=== PATIENT | male | born 1950 | race Caucasian/White ===

== ENCOUNTER → 2017-11-27 10:56 | Outpatient (CLI) | payer MEDICARE, SELFPAY ==
[2017-11-27 11:02] LABS: Microscopic, Urine URINE MICROSCOPIC (MICROSCOPIC)
[2017-11-27 11:23] LABS: Basophils % 0.3 % (0.1-2.0); Eosinophils # 0.4 K/mm3 (0.0-0.4); Eosinophils % 3.9 % (0.1-12.0); Lymphocytes # 2.6 K/mm3 (0.7-4.5); Lymphocytes % 27.6 K/mm3 (10-50); Mean Corpuscular HGB Conc 33.3 g/dL (31.8-35.4); Mean Corpuscular Hemoglobin 32.1 pg (27.0-31.2); Mean Corpuscular Volume 96.2 fl (80-94); Mean Platelet Volume 7.4 fl (7.4-10.4); Monocytes # 0.6 K/mm3 (0.1-1.0); Monocytes % 6.4 % (1.7-9.3); Neutrophils # 5.8 K/mm3 (1.8-7.8); Neutrophils % 61.8 % (37.0-80.0); Platelet Count 229 K/mm3 (142-424); Red Blood Count 4.37 M/mm3 (4.60-6.20); Red Cell Distribution Width 13.1 % (11.5-17.5); White Blood Count 9.5 K/mm3 (4.8-10.8)
[2017-11-27 12:11] LABS: Appearance,Urine CLEAR (Clear); Bilirubin,Urine Negative (Negative); Blood, Urine Negative (Negative); Color,Urine YELLOW (Yellow); Glucose,Urine (UA) Negative (Negative); Ketones,Urine Negative (Negative); Leukocyte Esterase,Urine Negative (Negative); Nitrate,Urine Negative (Negative); Protein,Urine Negative (Negative); Urobilinogen,Urine 0.2 EU/dl (0.2)
[2017-11-27 12:24] LABS: Bacteria,Urine 1+ /lpf; Mucus,Urine 1+ /lpf; Squamous Epithelial Cell,Urine Occasional #/hpf (0-5); WBC,Urine Occasional #/hpf (0-3)
== END ==
PROVIDERS: PCP Family Medicine; Visit Provider Surgery
DX: C19 Malignant neoplasm of rectosigmoid junction (principal)
CPT/HCPCS: 36415; 81001; 85025; 93005

== ENCOUNTER 2017-11-28 09:38 | Day surgery (SDC) | payer MEDICARE, SELFPAY ==
[2017-11-27 09:50] VITALS: BMI 29.9
[2017-11-28] VITALS (8 sets, daily range): BP systolic 95–124; BP diastolic 61–82; PULSE 64–99; RESP 16–18; TEMP 36.1–36.7; O2SAT 90–94
--- NOTE | 2017-11-28 10:32 | P.PN_ITS ---
[facility] Anesthesia Checklist - Patient Identification Patient Identification: Arm Band - Structural Data Admitted From: Home Planned Operative Procedure/s: port-a-cath placement Consent for Planned Operative Procedure(s) Verified: Yes Verified Documents: Surgical Consent, History and Physical - NPO Status Verified Time NPO: 00:00 - Additional verifications Anesthesia Reactions: No - Airway Assessment C-Spine Mobility Assessed: Yes (mp2) TMJ Mobility Assessed: Yes Dentition: Edentulous - Neurological Assessment Level of Consciousness: Awake, Alert - Anesthesia Plan Anesthesia Risk discussed: Yes Anesthesia Plan: Verified ASA Class: III Anesthesia Type: General [facility] Anesthesia HX I have reviewed the patient's past medical history: Yes Medical History: Reports:: Cancer, Chronic Obstructive Pulmonary Disease (COPD) , Hyperlipidemia, Hypertension Denies:: Anxiety, Depression, Diabetes Mellitus Type 1, Diabetes Mellitus Type 2, Internal Pacemaker, MRSA Other Medical History: Reports: Chemotherapy Comment: colon ca Laterality Cases: Left: Carpal Tunnel Release, Bilateral: Tonsillectomy Other Surgeries: Yes: Cancer Surgery, Colonoscopy, Colon Resection, Hernia Repair, Other. No: Pacemaker Amputation: No Fractures: No *Family Hx:: Heart Attack, Cancer, Diabetes
--- NOTE | 2017-11-28 12:10 | HMH.OPNOTE ---
Date of procedure: 11/28/17 Pre-op Diagnosis:: Colorectal cancer Post-op diagnosis:: same Procedure performed:: Port-A-Cath placement (left subclavian vein access) Surgeon:: Portillo Herrera MD RELIGION DEPARTMENT CHAIR:: Other Anesthesia: LMA Estimated blood loss (mL): 10 Operative findings:: Port flush with 7 mL of heparinized saline without difficulty Catheter tip confirmed fluoroscopically Operative note:: After informed consent was obtained, the patient was taken to the operating room and placed in the supine position. General anesthesia with laryngeal mask airway was achieved. His chest and neck were prepped and draped in a sterile fashion. After infiltration with local anesthetic a large bore needle was utilized to access the left subclavian vein. The guidewire placed in position and confirmed fluoroscopically. A transverse incision was made to include the exit site of the guidewire. The deep subcutaneous tissue was dissected to create a pocket for the port hub. The dilator with external sheath was then placed over the guidewire. The dilator and guidewire were removed and the catheter was placed through the sheath and confirmed fluoroscopically. The catheter was cut to appropriate length and secured to the hub. The hub was secured to the underlying fascia with Prolene suture. The hub was easily flushed saline. The subcutaneous tissue was reapproximated with interrupted Vicryl and skin was closed with 4-0 Monocryl in a running subcuticular manner. The port was then flushed with 7 mL of heparinized saline without difficulty. The patient was transferred to recovery in stable condition after bursal of anesthetics. Chest x-ray pending. Pathology: none sent Condition: stable Disposition: PACU Complications:: No immediate
--- NOTE | 2017-11-28 12:21 | P.PN_ITS ---
[facility] Anesthesia Record Part I Intake, IV Amount: 1,000 Estimated blood loss (mL): 10 Urine output (mL): 0 Blood Products used (#): none Blood Pressure: 111/65 SaO2: 90 Pulse Rate: 99 Respiratory Rate: 18 Temperature: 97.2 F Patient is:: Drowsy, Nasal O2 Stable to PACU at:: 12:21
--- NOTE | 2017-11-28 12:21 | HMH.ANESII ---
[facility] Anesthesia Record Part II Discharge Time: 12:51 Destination: Surgical Day Care (OP Surgery) PACU nurse assessment reviewed?: Yes Patient Condition:: Good Anesthesia Complications:: None
--- NOTE | 2017-11-28 12:25 | XR_ITS ---
XR chest portable HISTORY: ITS.REASON: port a cath placement ORDERING PHYSICIAN: Portillo Herrera MD PATIENT AGE: 67 years COMPARISON: 04/28/2013 FINDINGS: Port-A-Cath has been placed by the left subclavian approach with the tip in the cavoatrial region. There is moderate patient rotation. There is atelectasis or infiltrate in both lower lobes. No evidence of pneumothorax. IMPRESSION: Left subclavian Port-A-Cath tip in the region of the cavoatrial region with bilateral lower lobe airspace disease and no evidence of pneumothorax
--- NOTE | 2017-11-28 13:22 | FL_ITS ---
FL guided central line placemt CLINICAL INDICATION: Port-A-Cath placement ITS.REASON: PORT A CATH ORDERING PHYSICIAN: Portillo Herrera MD PATIENT AGE: 67 years Fluoroscopy time: 39 seconds COMPARISON: None FINDINGS: Multiple C-arm images submitted showing interval placement of a left subclavian Mediport catheter with the tip in region of the distal aspect of the superior vena cava. IMPRESSION: Left subclavian central venous line inserted with the tip in region of the aortocaval junction
== END 2017-11-28 13:21 | disposition home or self-care (01) ==
PROVIDERS: Family Provider Family Medicine; PCP Family Medicine; Visit Provider Surgery
DX: C18.9 Malignant neoplasm of colon, unspecified (principal)
CPT/HCPCS: 36571; 71045; 76000; 77001; 93005; 96374; C1788; J1642

== ENCOUNTER 2017-12-10 11:10 | Outpatient (CLI) | payer MEDICARE, SELFPAY ==
[2017-12-10] VITALS (15 sets, daily range): BP systolic 91–134; BP diastolic 50–84; PULSE 51–73; RESP 16–18; TEMP 36.5; BMI 29.1
[2017-12-10 12:04] LABS: Basophils % 0.3 % (0.1-2.0); Eosinophils # 0.3 K/mm3 (0.0-0.4); Eosinophils % 3.2 % (0.1-12.0); Hemoglobin 13.4 g/dL (14.1-18.0); Lymphocytes # 2.8 K/mm3 (0.7-4.5); Lymphocytes % 28.4 K/mm3 (10-50); Mean Corpuscular HGB Conc 33.5 g/dL (31.8-35.4); Mean Corpuscular Hemoglobin 31.9 pg (27.0-31.2); Mean Corpuscular Volume 95.1 fl (80-94); Mean Platelet Volume 7.6 fl (7.4-10.4); Monocytes # 0.6 K/mm3 (0.1-1.0); Monocytes % 5.8 % (1.7-9.3); Neutrophils % 62.2 % (37.0-80.0); Platelet Count 225 K/mm3 (142-424); Red Cell Distribution Width 12.9 % (11.5-17.5); White Blood Count 9.7 K/mm3 (4.8-10.8)
[2017-12-10 12:26] LABS: Alanine Aminotransferase 24 U/L (12-78); Albumin Level 3.6 gm/dL (3.4-5.0); Alkaline Phosphatase 66 U/L (46-116); Anion Gap 11.3 mEq/L (5-15); Aspartate Amino Transferase 14 U/L (15-37); Bilirubin,Total 0.4 mg/dL (0.2-1.0); Blood Urea Nitrogen 21 mg/dL (7-18); Calcium 8.9 mg/dL (8.5-10.1); Carbon Dioxide 27 mmol/L (21.0-32.0); Chloride 106 mmol/L (98-107); Creatinine Clearance Estimated 78 mL/min (0-300); Creatinine,Serum 1.15 mg/dL (0.70-1.30); Estimated Glomerular Filt Rate 63 ml/min (>60); GFR (African American) 77 ML/MIN (>60); Globulin 3.6 gm/dl (1.3-3.2); Glucose 95 mg/dL (74-106); Potassium 4.3 mmoL/L (3.5-5.1); Sodium 140 mmol/L (136-145); Total Protein,Serum 7.2 gm/dL (6.4-8.2)
--- NOTE | 2017-12-10 17:53 | PC.NURSE ---
TOTAL VOLUME INCLUDES OXALIPLATIN, PRE AND POST FLUIDS, AND NS
== END 2017-12-10 16:30 | disposition home or self-care (01) ==
LOC: INF 15:38
PROVIDERS: Family Provider Family Medicine; PCP Family Medicine; Visit Provider Internal Medicine
DX: C18.9 Malignant neoplasm of colon, unspecified (principal)
CPT/HCPCS: 80053; 85025; 96413; 96415; J9263; Q0166

== ENCOUNTER 2017-12-31 08:00 | Outpatient (CLI) | payer MEDICARE, SELFPAY ==
[2017-12-31] VITALS (9 sets, daily range): BP systolic 118–133; BP diastolic 70–84; PULSE 66–70; RESP 18–22; TEMP 36.6–37.1; O2SAT 96–98; BMI 29.3
[2017-12-31 08:58] LABS: Basophils % 0.2 % (0.1-2.0); Eosinophils # 0.2 K/mm3 (0.0-0.4); Eosinophils % 2.6 % (0.1-12.0); Hematocrit 39.5 % (42.0-52.0); Hemoglobin 13.1 g/dL (14.1-18.0); Lymphocytes # 2.4 K/mm3 (0.7-4.5); Mean Corpuscular HGB Conc 33.2 g/dL (31.8-35.4); Mean Corpuscular Hemoglobin 32.2 pg (27.0-31.2); Mean Corpuscular Volume 97.1 fl (80-94); Mean Platelet Volume 7.3 fl (7.4-10.4); Monocytes # 0.6 K/mm3 (0.1-1.0); Monocytes % 7.4 % (1.7-9.3); Neutrophils # 5.3 K/mm3 (1.8-7.8); Neutrophils % 61.7 % (37.0-80.0); Platelet Count 240 K/mm3 (142-424); Red Blood Count 4.07 M/mm3 (4.60-6.20); Red Cell Distribution Width 14.7 % (11.5-17.5); White Blood Count 8.6 K/mm3 (4.8-10.8)
[2017-12-31 09:10] LABS: Alanine Aminotransferase 22 U/L (12-78); Albumin Level 3.8 gm/dL (3.4-5.0); Albumin/Globulin Ratio 1.2 (1.1-1.8); Alkaline Phosphatase 79 U/L (46-116); Anion Gap 10.9 mEq/L (5-15); Aspartate Amino Transferase 15 U/L (15-37); Bilirubin,Total 0.2 mg/dL (0.2-1.0); Blood Urea Nitrogen 21 mg/dL (7-18); Calcium 8.6 mg/dL (8.5-10.1); Carbon Dioxide 26 mmol/L (21.0-32.0); Chloride 105 mmol/L (98-107); Creatinine Clearance Estimated 76 mL/min (0-300); Creatinine,Serum 1.18 mg/dL (0.70-1.30); Estimated Glomerular Filt Rate 61 ml/min (>60); GFR (African American) 74 ML/MIN (>60); Globulin 3.3 gm/dl (1.3-3.2); Glucose 102 mg/dL (74-106); Potassium 3.9 mmoL/L (3.5-5.1); Sodium 138 mmol/L (136-145); Total Protein,Serum 7.1 gm/dL (6.4-8.2)
== END 2017-12-31 13:50 | disposition home or self-care (01) ==
LOC: INF 09:08
PROVIDERS: Family Provider Family Medicine; PCP Family Medicine; Visit Provider Internal Medicine
DX: Z51.11 Encounter for antineoplastic chemotherapy (principal); C18.9 Malignant neoplasm of colon, unspecified
CPT/HCPCS: 80053; 85025; 96360; 96413; 96415; J9263; Q0166

== ENCOUNTER 2018-01-14 08:23 | Outpatient (CLI) | payer MEDICARE, SELFPAY ==
[2018-01-14] VITALS (15 sets, daily range): BP systolic 109–130; BP diastolic 54–83; PULSE 54–73; RESP 16–18; TEMP 36.6; O2SAT 92; BMI 29.3
[2018-01-14 08:48] LABS: Basophils % 0.2 % (0.1-2.0); Eosinophils # 0.3 K/mm3 (0.0-0.4); Eosinophils % 4.4 % (0.1-12.0); Hematocrit 36.7 % (42.0-52.0); Hemoglobin 12.5 g/dL (14.1-18.0); Lymphocytes # 2.3 K/mm3 (0.7-4.5); Lymphocytes % 33.6 K/mm3 (10-50); Mean Corpuscular Hemoglobin 32.6 pg (27.0-31.2); Mean Corpuscular Volume 96.1 fl (80-94); Mean Platelet Volume 7.3 fl (7.4-10.4); Monocytes # 0.3 K/mm3 (0.1-1.0); Monocytes % 4.2 % (1.7-9.3); Neutrophils # 3.9 K/mm3 (1.8-7.8); Neutrophils % 57.6 % (37.0-80.0); Platelet Count 161 K/mm3 (142-424); Red Blood Count 3.83 M/mm3 (4.60-6.20); Red Cell Distribution Width 16.2 % (11.5-17.5); White Blood Count 6.7 K/mm3 (4.8-10.8)
[2018-01-14 09:05] LABS: Alanine Aminotransferase 25 U/L (12-78); Albumin Level 3.5 gm/dL (3.4-5.0); Albumin/Globulin Ratio 1.1 (1.1-1.8); Alkaline Phosphatase 84 U/L (46-116); Aspartate Amino Transferase 18 U/L (15-37); Bilirubin,Total 0.4 mg/dL (0.2-1.0); Blood Urea Nitrogen 19 mg/dL (7-18); Calcium 8.8 mg/dL (8.5-10.1); Carbon Dioxide 27 mmol/L (21.0-32.0); Chloride 108 mmol/L (98-107); Creatinine Clearance Estimated 84 mL/min (0-300); Creatinine,Serum 1.07 mg/dL (0.70-1.30); Estimated Glomerular Filt Rate 69 ml/min (>60); GFR (African American) 83 ML/MIN (>60); Globulin 3.3 gm/dl (1.3-3.2); Glucose 112 mg/dL (74-106); Sodium 143 mmol/L (136-145); Total Protein,Serum 6.8 gm/dL (6.4-8.2)
--- NOTE | 2018-01-14 14:57 | PC.NURSE ---
TOTAL VOLUME INCLUDES PRE AND POST FLUIDS, NS, AND OXALIPLATIN.
== END 2018-01-14 14:10 | disposition home or self-care (01) ==
LOC: INF 08:23
PROVIDERS: Family Provider Family Medicine; PCP Family Medicine; Visit Provider Internal Medicine
DX: Z51.11 Encounter for antineoplastic chemotherapy (principal); C18.9 Malignant neoplasm of colon, unspecified
CPT/HCPCS: 80053; 85025; 96413; 96415; J9263; Q0166

== ENCOUNTER 2018-01-28 08:25 | Outpatient (CLI) | payer MEDICARE, SELFPAY ==
[2018-01-28] VITALS (16 sets, daily range): BP systolic 131–162; BP diastolic 72–91; PULSE 57–70; RESP 16–18; TEMP 36.6; BMI 30.4
[2018-01-28 09:03] LABS: Basophils % 0.2 % (0.1-2.0); Eosinophils # 0.4 K/mm3 (0.0-0.4); Eosinophils % 5.3 % (0.1-12.0); Hematocrit 36.1 % (42.0-52.0); Hemoglobin 12.2 g/dL (14.1-18.0); Lymphocytes # 1.7 K/mm3 (0.7-4.5); Lymphocytes % 24.8 K/mm3 (10-50); Mean Corpuscular HGB Conc 33.9 g/dL (31.8-35.4); Mean Corpuscular Hemoglobin 34.2 pg (27.0-31.2); Mean Corpuscular Volume 100.8 fl (80-94); Mean Platelet Volume 7.4 fl (7.4-10.4); Monocytes # 0.3 K/mm3 (0.1-1.0); Monocytes % 4.4 % (1.7-9.3); Neutrophils # 4.4 K/mm3 (1.8-7.8); Neutrophils % 65.3 % (37.0-80.0); Platelet Count 171 K/mm3 (142-424); Red Blood Count 3.58 M/mm3 (4.60-6.20); Red Cell Distribution Width 18.5 % (11.5-17.5); White Blood Count 6.8 K/mm3 (4.8-10.8)
[2018-01-28 09:16] LABS: Alanine Aminotransferase 19 U/L (12-78); Albumin Level 3.3 gm/dL (3.4-5.0); Albumin/Globulin Ratio 1.1 (1.1-1.8); Alkaline Phosphatase 98 U/L (46-116); Anion Gap 11.4 mEq/L (5-15); Aspartate Amino Transferase 16 U/L (15-37); Bilirubin,Total 0.4 mg/dL (0.2-1.0); Blood Urea Nitrogen 22 mg/dL (7-18); Calcium 8.2 mg/dL (8.5-10.1); Carbon Dioxide 26 mmol/L (21.0-32.0); Chloride 107 mmol/L (98-107); Creatinine Clearance Estimated 84 mL/min (0-300); Creatinine,Serum 1.08 mg/dL (0.70-1.30); Estimated Glomerular Filt Rate 68 ml/min (>60); GFR (African American) 82 ML/MIN (>60); Globulin 3.1 gm/dl (1.3-3.2); Glucose 124 mg/dL (74-106); Potassium 3.4 mmoL/L (3.5-5.1); Sodium 141 mmol/L (136-145); Total Protein,Serum 6.4 gm/dL (6.4-8.2)
== END 2018-01-28 14:10 | disposition home or self-care (01) ==
LOC: INF 08:38
PROVIDERS: Family Provider Family Medicine; PCP Family Medicine; Visit Provider Internal Medicine
DX: Z51.11 Encounter for antineoplastic chemotherapy (principal); C18.9 Malignant neoplasm of colon, unspecified
CPT/HCPCS: 80053; 85025; 96365; 96366; 96413; 96415; J9263; Q0166

== ENCOUNTER 2018-02-11 08:40 | Outpatient (CLI) | payer MEDICARE, SELFPAY ==
[2018-02-11 08:42] VITALS: BMI 28.8
[2018-02-11 09:01] LABS: Basophils % 0.4 % (0.1-2.0); Eosinophils # 0.3 K/mm3 (0.0-0.4); Eosinophils % 4.1 % (0.1-12.0); Hematocrit 39.6 % (42.0-52.0); Lymphocytes # 1.7 K/mm3 (0.7-4.5); Lymphocytes % 22.7 K/mm3 (10-50); Mean Corpuscular HGB Conc 32.8 g/dL (31.8-35.4); Mean Corpuscular Hemoglobin 33.6 pg (27.0-31.2); Mean Corpuscular Volume 102.6 fl (80-94); Mean Platelet Volume 7.5 fl (7.4-10.4); Monocytes # 0.6 K/mm3 (0.1-1.0); Monocytes % 7.4 % (1.7-9.3); Neutrophils % 65.4 % (37.0-80.0); Platelet Count 173 K/mm3 (142-424); Red Blood Count 3.86 M/mm3 (4.60-6.20); Red Cell Distribution Width 18.9 % (11.5-17.5); White Blood Count 7.6 K/mm3 (4.8-10.8)
[2018-02-11 09:14] LABS: Alanine Aminotransferase 29 U/L (12-78); Albumin Level 3.3 gm/dL (3.4-5.0); Albumin/Globulin Ratio 0.9 (1.1-1.8); Alkaline Phosphatase 121 U/L (46-116); Anion Gap 10.1 mEq/L (5-15); Aspartate Amino Transferase 22 U/L (15-37); Bilirubin,Total 0.3 mg/dL (0.2-1.0); Blood Urea Nitrogen 21 mg/dL (7-18); Calcium 8.9 mg/dL (8.5-10.1); Carbon Dioxide 28 mmol/L (21.0-32.0); Chloride 106 mmol/L (98-107); Creatinine Clearance Estimated 88 mL/min (0-300); Creatinine,Serum 0.99 mg/dL (0.70-1.30); Estimated Glomerular Filt Rate 75 ml/min (>60); GFR (African American) 91 ML/MIN (>60); Globulin 3.6 gm/dl (1.3-3.2); Glucose 125 mg/dL (74-106); Potassium 4.1 mmoL/L (3.5-5.1); Sodium 140 mmol/L (136-145); Total Protein,Serum 6.9 gm/dL (6.4-8.2)
== END 2018-02-11 10:35 | disposition home or self-care (01) ==
LOC: INF 08:40
PROVIDERS: Family Provider Family Medicine; PCP Family Medicine; Visit Provider Internal Medicine
DX: C18.9 Malignant neoplasm of colon, unspecified
CPT/HCPCS: 80053; 85025

== ENCOUNTER → 2018-03-11 11:19 | Outpatient (CLI) | payer MEDICARE, SELFPAY ==
[2018-03-11 13:11] LABS: Thyroid Stimulating Hormone 16.26 uIU/ml (0.358-3.740)
[2018-03-13 08:49] LABS: Triiodothyronine (T3) Total 116
== END ==
PROVIDERS: Visit Provider Nurse Practitioner
DX: E04.9 Nontoxic goiter, unspecified (principal)
CPT/HCPCS: 36415; 84436; 84443; 84479; 84480

== ENCOUNTER 2018-04-14 08:32 | Outpatient (CLI) | payer MEDICARE, SELFPAY ==
[2018-04-14 08:30] VITALS: BP 113/70; PULSE 68; RESP 18; TEMP 36.5; O2SAT 95
== END 2018-04-14 08:50 | disposition home or self-care (01) ==
LOC: INF 08:32
PROVIDERS: Family Provider Family Medicine; PCP Family Medicine; Visit Provider Internal Medicine
DX: E04.9 Nontoxic goiter, unspecified (principal); Z45.2 Encounter for adjustment and management of vascular access device
CPT/HCPCS: 96523; J1642

== ENCOUNTER 2018-05-14 08:57 | Outpatient (CLI) | payer MEDICARE, SELFPAY | END 2018-05-14 09:10 | disposition home or self-care (01) | LOC: INF 08:57 | PROVIDERS: Family Provider Family Medicine; PCP Family Medicine; Visit Provider Internal Medicine | DX: Z45.2 Encounter for adjustment and management of vascular access device (principal) | CPT/HCPCS: 96523; J1642 ==

== ENCOUNTER 2018-07-15 08:25 | Outpatient (CLI) | payer MEDICARE, SELFPAY | END 2018-07-15 09:10 | disposition home or self-care (01) | LOC: INF 08:36 | PROVIDERS: Family Provider Family Medicine; PCP Family Medicine; Visit Provider Internal Medicine | DX: Z45.2 Encounter for adjustment and management of vascular access device (principal); C19 Malignant neoplasm of rectosigmoid junction | CPT/HCPCS: 96523; J1642 ==

== ENCOUNTER 2018-08-20 08:18 | Outpatient (CLI) | payer MEDICARE, SELFPAY | END 2018-08-20 08:35 | disposition home or self-care (01) | LOC: INF 08:18 | PROVIDERS: Visit Provider Internal Medicine Medical Oncology | DX: Z45.2 Encounter for adjustment and management of vascular access device (principal); C19 Malignant neoplasm of rectosigmoid junction | CPT/HCPCS: 96523; J1642 ==

== ENCOUNTER → 2018-08-25 08:02 | Outpatient (CLI) | payer MEDICARE, SELFPAY ==
--- NOTE | 2018-08-25 08:30 | US_ITS ---
US liver HISTORY: ITS.REASON: ELEVATED LIVER ENZYMES, history of colon cancer ORDERING PHYSICIAN: Rafael Elizabeth MD PATIENT AGE: 68 years COMPARISON: None FINDINGS: PANCREAS:Unremarkable. No obvious mass or abnormal fluid collection. No ductal dilatation LIVER:Liver has a more hypoechoic appearance with some inhomogeneity. This is nonspecific. No focal liver lesions are demonstrated. There is appropriate directional blood flow within a nondilated portal vein. RIGHT KIDNEY:Unremarkable. Normal size and echogenicity. No hydronephrosis. There is a 15 mm right renal cyst and a 14 mm right renal cyst projecting laterally GALLBLADDER:Gallstones are present. No gallbladder wall thickening, pericholecystic fluid, or biliary dilatation is evident. Common bile duct is 5 mm. IMPRESSION: 1. Some heterogeneous echogenicity of the liver which is nonspecific. No focal liver lesion evident 2. Cholelithiasis
== END ==
PROVIDERS: PCP Family Medicine; Visit Provider Family Medicine
DX: R74.8 Abnormal levels of other serum enzymes (principal)
CPT/HCPCS: 76705

== ENCOUNTER 2018-09-23 09:40 | Outpatient (CLI) | payer MEDICARE, SELFPAY | END 2018-09-23 10:05 | disposition home or self-care (01) | LOC: INF 09:45 | PROVIDERS: Visit Provider Nurse Practitioner | DX: Z45.2 Encounter for adjustment and management of vascular access device (principal); C19 Malignant neoplasm of rectosigmoid junction | CPT/HCPCS: 96523; J1642 ==

== ENCOUNTER → 2018-09-23 12:06 | Outpatient (CLI) | payer MEDICARE, SELFPAY ==
[2018-09-23 12:50] LABS: Basophils % 0.4 % (0.1-2.0); Eosinophils # 0.3 K/mm3 (0.0-0.4); Eosinophils % 3.1 % (0.1-12.0); Hemoglobin 13.3 g/dL (14.1-18.0); Lymphocytes # 2.5 K/mm3 (0.7-4.5); Lymphocytes % 26.1 % (10-50); Mean Corpuscular HGB Conc 32.5 g/dL (31.8-35.4); Mean Corpuscular Hemoglobin 31.4 pg (27.0-31.2); Mean Corpuscular Volume 96.7 fl (80-94); Monocytes # 0.5 K/mm3 (0.1-1.0); Monocytes % 4.8 % (1.7-9.3); Neutrophils # 6.2 K/mm3 (1.8-7.8); Neutrophils % 65.6 % (37.0-80.0); Platelet Count 243 K/mm3 (142-424); Red Blood Count 4.24 M/mm3 (4.60-6.20); Red Cell Distribution Width 13.6 % (11.5-17.5); White Blood Count 9.4 K/mm3 (4.8-10.8)
[2018-09-25 10:51] LABS: CEA 4.1 ng/mL (0.0-4.7)
== END ==
PROVIDERS: Visit Provider Nurse Practitioner
DX: Z45.2 Encounter for adjustment and management of vascular access device (principal); C19 Malignant neoplasm of rectosigmoid junction
CPT/HCPCS: 36415; 82378; 85025; 96523; J1642

== ENCOUNTER → 2018-10-14 06:22 | Outpatient (CLI) | payer MEDICARE, SELFPAY ==
--- NOTE | 2018-10-14 06:24 | NM_ITS ---
CARDIOLITE SPECT MYOCARDIAL PERFUSION SCAN, REST AND STRESS: EXERCISE STRESS [facility] REVIEW QGS EF AND WALL MOTION EVALUATION: QPS - PERFUSION EVALUATION HISTORY: CAD, HTN, Pre Op DOSE: 10.31 mCi technetium 99m mibi intravenously at rest followed by 32.8 mCi technetium 99m mibi following the intravenous ministration of 0.4 mg of Lexiscan. Resting blood pressure is 155/89. Stress blood pressure 127/74. FINDINGS: Ejection fraction is calculated to be 57%. Stress images reveal decreased activity in the inferior wall with no change with rest images. On rest images there is a new apical defect not present on stress images. Gated images calculated ejection fraction of 57% with normal wall motion IMPRESSION: Inferior defect is most consistent with diaphragm attenuation however clinical correlation is advised. There is a very significant resting defect in the apex not present with stress images suggesting reverse redistribution. Normal ejection fraction normal wall motion. This is probably a moderate and possibly high risk stress test.
--- NOTE | 2018-10-14 07:09 | HMH.ITSHM ---
Current Home Medications as stated by this patient Sonia Reynoso or medical field representative. []MELOXICAM METOPROLOL LISINOPRIL RANITIDINE LEVOTHYROXINE ELLIPLA VITAMIN D3 TERAZOSIN ATORVASTATIN ASA MIRCIN
== END ==
PROVIDERS: PCP Family Medicine; Visit Provider Internal Medicine Cardiovascular Disease
DX: E78.5 Hyperlipidemia, unspecified (principal); I25.10 Atherosclerotic heart disease of native coronary artery without angina pectoris; I25.2 Old myocardial infarction; K21.9 Gastro-esophageal reflux disease without esophagitis; N40.0 Benign prostatic hyperplasia without lower urinary tract symptoms; R06.09 Other forms of dyspnea; Z01.810 Encounter for preprocedural cardiovascular examination; Z85.038 Personal history of other malignant neoplasm of large intestine; Z92.21 Personal history of antineoplastic chemotherapy
CPT/HCPCS: 78452; 93017; 93306; A9502; J2785

== ENCOUNTER 2018-10-22 10:45 | Outpatient (CLI) | payer MEDICARE, SELFPAY | END 2018-10-22 11:20 | disposition home or self-care (01) | LOC: INF 11:09 | PROVIDERS: Visit Provider Internal Medicine Medical Oncology | DX: Z45.2 Encounter for adjustment and management of vascular access device (principal) | CPT/HCPCS: 96523; J1642 ==

== ENCOUNTER → 2018-12-08 12:05 | Outpatient (CLI) | payer MEDICARE, SELFPAY ==
--- NOTE | 2018-12-08 12:08 | CI_ITS ---
Cerebrovascular Exam Indications: 785.9 Bruit. IMPRESSIONS 1. The bilateral vertebral arteries are patent with normal antegrade flow. 2. Study suggests 20-49% (upper end) stenosis involving the right internal carotid artery. 3. Study suggests 50-69% stenosis involving the left internal carotid artery. History: Risk factors: Current tobacco use. Hypertension. Carotid duplex study. Complete study and Doppler flow study including spectral analysis, color and carranza scale imaging. Location: Vascular laboratory. Patient status: Outpatient. Tables: Arterial flow: + +--------+--------+ Location V sys V ed + +--------+--------+ Right CCA - proximal 114cm/s 35.4cm/s + +--------+--------+ Right CCA - distal 95.1cm/s 26.7cm/s + +--------+--------+ Right ECA 101cm/s 16.6cm/s + +--------+--------+ Right ICA - proximal 113cm/s 39.3cm/s + +--------+--------+ Right ICA - mid 105cm/s 27.5cm/s + +--------+--------+ Right ICA - distal 86.4cm/s 32.2cm/s + +--------+--------+ Right vertebral 28.4cm/s 9.2cm/s + +--------+--------+ Left CCA - proximal 110cm/s 33.9cm/s + +--------+--------+ Left CCA - distal 77.9cm/s 26.4cm/s + +--------+--------+ Left ECA 94.3cm/s 10.6cm/s + +--------+--------+ Left ICA - proximal 154cm/s 50.1cm/s + +--------+--------+ Left ICA - mid 77cm/s 29.6cm/s + +--------+--------+ Left ICA - distal 67.8cm/s 27cm/s + +--------+--------+ Left vertebral 53.1cm/s 16.9cm/s + +--------+--------+ Velocity ratios: + + + + + + Right, V sys Right, V ed Left, V sys Left, V ed + + + + + + Max ICA/dist CCA 1.19 1.47 1.98 1.9 + + + + + + (Report amended ) Electronically signed by: Trever Jefferson [id number]
== END ==
PROVIDERS: PCP Family Medicine; Visit Provider Internal Medicine Cardiovascular Disease
DX: E78.5 Hyperlipidemia, unspecified (principal); I10 Essential (primary) hypertension; I25.10 Atherosclerotic heart disease of native coronary artery without angina pectoris; R09.89 Other specified symptoms and signs involving the circulatory and respiratory systems; Z01.818 Encounter for other preprocedural examination
CPT/HCPCS: 93880

== ENCOUNTER 2018-12-16 08:28 | Outpatient (CLI) | payer MEDICARE, SELFPAY | END 2018-12-16 09:00 | disposition home or self-care (01) | LOC: INF 08:37 | PROVIDERS: Visit Provider Nurse Practitioner | DX: Z45.2 Encounter for adjustment and management of vascular access device (principal); C19 Malignant neoplasm of rectosigmoid junction | CPT/HCPCS: 96523; J1642 ==

== ENCOUNTER → 2018-12-23 20:11 | Outpatient (CLI) | payer MEDICARE, SELFPAY | PROVIDERS: PCP Family Medicine; Visit Provider Internal Medicine Cardiovascular Disease | DX: G47.33 Obstructive sleep apnea (adult) (pediatric) (principal); G47.10 Hypersomnia, unspecified; R06.83 Snoring | CPT/HCPCS: 95810 ==

== ENCOUNTER 2019-01-13 08:40 | Outpatient (CLI) | payer MEDICARE, SELFPAY | END 2019-01-13 09:00 | disposition home or self-care (01) | LOC: INF 08:43 | PROVIDERS: Visit Provider Nurse Practitioner | DX: Z45.2 Encounter for adjustment and management of vascular access device (principal); C19 Malignant neoplasm of rectosigmoid junction | CPT/HCPCS: 96523; J1642 ==

== ENCOUNTER 2019-03-03 13:34 | Outpatient (CLI) | payer MEDICARE, SELFPAY | END 2019-03-03 13:45 | disposition home or self-care (01) | LOC: INF 13:34 | PROVIDERS: Visit Provider Nurse Practitioner | DX: Z45.2 Encounter for adjustment and management of vascular access device (principal) | CPT/HCPCS: 96523; G0463 ==

== ENCOUNTER 2019-03-28 07:56 | Emergency (ER) | payer MEDICARE, SELFPAY ==
[2019-03-28] VITALS (13 sets, daily range): BP systolic 86–126; BP diastolic 55–74; PULSE 57–85; RESP 18; TEMP 36.6; O2SAT 91–100; BMI 29.0
--- NOTE | 2019-03-28 08:12 | HMH.EDGENADL ---
ED Disposition Clinical Impression: Medication intolerance Disposition: Home, Self-Care Condition on Discharge: Good Referrals: Rafael Elizabeth MD [Primary Care Provider] - - Critical Care Critical Care Time: No Attestation: On , the high probability of a clinically significant, sudden or life threatening deterioration of the following system(s) required my full and direct attention, intervention and personal management. The time I documented below is in addition to time spent performing reported procedures but includes the following listed in this critical care notation. Medical Decision Making - Medical Records Medical records reviewed: Yes: I reviewed the patient's medical records. - Artemio Inquiry Pt receiving controlled substance: No Vital Signs: 03/28/19 08:04 03/28/19 08:56 03/28/19 09:00 Temperature 98 F Temperature Source Oral Pulse Rate [Left Apical] 85 68 68 Pulse Rate [Orthostatic Lying Right Brachial] Pulse Rate [Orthostatic Sitting Right Brachial] Pulse Rate [Orthostatic Standing Right Brachial] Respiratory Rate 18 Blood Pressure [Orthostatic Lying Right Arm] Blood Pressure [Orthostatic Sitting Right Arm] Blood Pressure [Orthostatic Standing Right Arm] Blood Pressure [Right Arm] 100/57 L 90/55 L 92/55 L Blood Pressure Mean [Right Arm] 71 66 67 02 Sat by Pulse Oximetry 94 L 91 L Oxygen Delivery Method Room Air 03/28/19 09:30 03/28/19 09:32 03/28/19 10:00 Temperature Temperature Source Pulse Rate [Left Apical] 59 L 68 Pulse Rate [Orthostatic Lying Right Brachial] 73 Pulse Rate [Orthostatic Sitting Right Brachial] 67 Pulse Rate [Orthostatic Standing Right Brachial] 80 Respiratory Rate Blood Pressure [Orthostatic Lying Right Arm] 96/58 L Blood Pressure [Orthostatic Sitting Right Arm] 121/67 Blood Pressure [Orthostatic Standing Right Arm] 86/63 L Blood Pressure [Right Arm] 87/57 L 88/58 L Blood Pressure Mean [Right Arm] 67 68 02 Sat by Pulse Oximetry 94 L 94 L Oxygen Delivery Method 03/28/19 10:28 03/28/19 11:00 03/28/19 11:14 Temperature Temperature Source Pulse Rate [Left Apical] 76 68 70 Pulse Rate [Orthostatic Lying Right Brachial] Pulse Rate [Orthostatic Sitting Right Brachial] Pulse Rate [Orthostatic Standing Right Brachial] Respiratory Rate Blood Pressure [Orthostatic Lying Right Arm] Blood Pressure [Orthostatic Sitting Right Arm] Blood Pressure [Orthostatic Standing Right Arm] Blood Pressure [Right Arm] 90/60 L 95/63 L 101/61 L Blood Pressure Mean [Right Arm] 70 73 74 02 Sat by Pulse Oximetry 92 L 94 L 94 L Oxygen Delivery Method 03/28/19 12:00 03/28/19 12:30 03/28/19 13:01 Temperature Temperature Source Pulse Rate [Left Apical] 57 L 62 Pulse Rate [Orthostatic Lying Right Brachial] 65 Pulse Rate [Orthostatic Sitting Right Brachial] 67 Pulse Rate [Orthostatic Standing Right Brachial] 63 Respiratory Rate Blood Pressure [Orthostatic Lying Right Arm] 114/68 Blood Pressure [Orthostatic Sitting Right Arm] 123/74 Blood Pressure [Orthostatic Standing Right Arm] 112/69 Blood Pressure [Right Arm] 107/68 L 109/66 L Blood Pressure Mean [Right Arm] 81 80 02 Sat by Pulse Oximetry 95 96 Oxygen Delivery Method - Lab Data Lab results reviewed: Yes: I reviewed the patient's lab results. Lab Results 03/28/19 08:18: WBC 8.4, RBC 4.28 L, Hgb 13.9 L, Hct 40.0 L, MCV 93.4, MCH 32.4 H, MCHC 34.7, RDW 12.9, Plt Count 199, MPV 8.5, Neut % (Auto) 66.7, Lymph % (Auto) 22.3, Pitkin % (Auto) 6.0, Eos % (Auto) 4.6, Baso % (Auto) 0.3, Neut # (Auto) 5.6, Lymph # (Auto) 1.9, Pitkin # (Auto) 0.5, Eos # (Auto) 0.4, Baso # (Auto) 0.0 03/28/19 08:18: Sodium 141, Potassium 3.7, Chloride 104, Carbon Dioxide 26, Anion Gap 14.7, BUN 25 H, Creatinine 1.80 H, Estimated Creat Clear 49, Estimated GFR 38 L, Est GFR ( Amer) 45 L, Glucose 122 H, Calcium 9.0, Total Bilirubin 0.4, AST 17, ALT 27, A
--- NOTE | 2019-03-28 08:15 | ED_ITS ---
ED Disposition Clinical Impression: Medication intolerance Disposition: Home, Self-Care Condition on Discharge: Good Referrals: Rafael Elizabeth MD [Primary Care Provider] - - Critical Care Critical Care Time: No Attestation: On , the high probability of a clinically significant, sudden or life thre atening deterioration of the following system(s) required my full and direct attention, intervention and personal management. The time I documented below is in addition to time spent performing reported procedures but includes the following listed in this critical care notation. Medical Decision Making - Medical Records Medical records reviewed: Yes: I reviewed the patient's medical records. - Artemio Inquiry Pt receiving controlled substance: No Vital Signs: 03/28/19 08:04 03/28/19 08:56 03/28/19 09:00 Temperature 98 F Temperature Source Oral Pulse Rate [Left Apical] 85 68 68 Pulse Rate [Orthostatic Lying Right Brachial] Pulse Rate [Orthostatic Sitting Right Brachial] Pulse Rate [Orthostatic Standing Right Brachial] Respiratory Rate 18 Blood Pressure [Orthostatic Lying Right Arm] Blood Pressure [Orthostatic Sitting Right Arm] Blood Pressure [Orthostatic Standing Right Arm] Blood Pressure [Right Arm] 100/57 L 90/55 L 92/55 L Blood Pressure Mean [Right Arm] 71 66 67 02 Sat by Pulse Oximetry 94 L 91 L Oxygen Delivery Method Room Air 03/28/19 09:30 03/28/19 09:32 03/28/19 10:00 Temperature Temperature Source Pulse Rate [Left Apical] 59 L 68 Pulse Rate [Orthostatic Lying Right Brachial] 73 Pulse Rate [Orthostatic Sitting Right Brachial] 67 Pulse Rate [Orthostatic Standing Right Brachial] 80 Respiratory Rate Blood Pressure [Orthostatic Lying Right Arm] 96/58 L Blood Pressure [Orthostatic Sitting Right Arm] 121/67 Blood Pressure [Orthostatic Standing Right Arm] 86/63 L Blood Pressure [Right Arm] 87/57 L 88/58 L Blood Pressure Mean [Right Arm] 67 68 02 Sat by Pulse Oximetry 94 L 94 L Oxygen Delivery Method 03/28/19 10:28 03/28/19 11:00 03/28/19 11:14 Temperature Temperature Source Pulse Rate [Left Apical] 76 68 70 Pulse Rate [Orthostatic Lying Right Brachial] Pulse Rate [Orthostatic Sitting Right Brachial] Pulse Rate [Orthostatic Standing Right Brachial] Respiratory Rate Blood Pressure [Orthostatic Lying Right Arm] Blood Pressure [Orthostatic Sitting Right Arm] Blood Pressure [Orthostatic Standing Right Arm] Blood Pressure [Right Arm] 90/60 L 95/63 L 101/61 L Blood Pressure Mean [Right Arm] 70 73 74 02 Sat by Pulse Oximetry 92 L 94 L 94 L Oxygen Delivery Method 03/28/19 12:00 03/28/19 12:30 03/28/19 13:01 Temperature Temperature Source Pulse Rate [Left Apical] 57 L 62 Pulse Rate [Orthostatic Lying Right Brachial] 65 Pulse Rate [Orthostatic Sitting Right Brachial] 67 Pulse Rate [Orthostatic Standing Right Brachial] 63 Respiratory Rate Blood Pressure [Orthostatic Lying Right Arm] 114/68 Blood Pressure [Orthostatic Sitting Right Arm] 123/74 Blood Pres
[2019-03-28 08:25] LABS: Basophils % 0.3 % (0.1-2.0); Eosinophils # 0.4 K/mm3 (0.0-0.4); Eosinophils % 4.6 % (0.1-12.0); Hemoglobin 13.9 g/dL (14.1-18.0); Lymphocytes # 1.9 K/mm3 (0.7-4.5); Lymphocytes % 22.3 % (10-50); Mean Corpuscular HGB Conc 34.7 g/dL (31.8-35.4); Mean Corpuscular Hemoglobin 32.4 pg (27.0-31.2); Mean Corpuscular Volume 93.4 fl (80-94); Mean Platelet Volume 8.5 fl (7.4-10.4); Monocytes # 0.5 K/mm3 (0.1-1.0); Neutrophils # 5.6 K/mm3 (1.8-7.8); Neutrophils % 66.7 % (37.0-80.0); Platelet Count 199 K/mm3 (142-424); Red Blood Count 4.28 M/mm3 (4.60-6.20); Red Cell Distribution Width 12.9 % (11.5-17.5); White Blood Count 8.4 K/mm3 (4.8-10.8)
[2019-03-28 08:53] LABS: Alanine Aminotransferase 27 U/L (12-78); Albumin Level 3.6 gm/dL (3.4-5.0); Alkaline Phosphatase 84 U/L (46-116); Anion Gap 14.7 mEq/L (5-15); Aspartate Amino Transferase 17 U/L (15-37); Bilirubin,Total 0.4 mg/dL (0.2-1.0); Blood Urea Nitrogen 25 mg/dL (7-18); CKMB Relative Index 1.4 U/L (0-4.0); Carbon Dioxide 26 mmol/L (21.0-32.0); Chloride 104 mmol/L (98-107); Creatine Kinase 103 U/L (39-308); Creatine Kinase MB 1.4 ng/ml (0.0-3.6); Creatinine Clearance Estimated 49 mL/min (50-200); Estimated Glomerular Filt Rate 38 ml/min (>60); GFR (African American) 45 ML/MIN (>60); Globulin 3.5 gm/dl (1.3-3.2); Glucose 122 mg/dL (74-106); Potassium 3.7 mmoL/L (3.5-5.1); Sodium 141 mmol/L (136-145); Total Protein,Serum 7.1 gm/dL (6.4-8.2); Troponin I < 0.02 ng/ml (0.00-0.06)
== END 2019-03-28 13:08 | disposition home or self-care (01) ==
PROVIDERS: Emergency Provider Emergency Medicine Emergency Medical Services; PCP Family Medicine
DX: I95.2 Hypotension due to drugs (principal); T46.4X5A Adverse effect of angiotensin-converting-enzyme inhibitors, initial encounter; Y92.019 Unspecified place in single-family (private) house as the place of occurrence of the external cause; J44.9 Chronic obstructive pulmonary disease, unspecified; I10 Essential (primary) hypertension; E78.5 Hyperlipidemia, unspecified; F17.210 Nicotine dependence, cigarettes, uncomplicated
CPT/HCPCS: 80053; 82550; 82553; 84484; 85025; 93005; 96365; 96367; 99284

== ENCOUNTER → 2019-04-09 12:04 | Outpatient (CLI) | payer MEDICARE, SELFPAY | PROVIDERS: PCP Family Medicine; Visit Provider Nurse Practitioner Family | DX: G47.33 Obstructive sleep apnea (adult) (pediatric) (principal); I10 Essential (primary) hypertension; R06.02 Shortness of breath; Z98.890 Other specified postprocedural states | CPT/HCPCS: 94762 ==

== ENCOUNTER 2019-04-09 12:26 | Outpatient (CLI) | payer MEDICARE, SELFPAY | END 2019-04-09 12:35 | disposition home or self-care (01) | LOC: INF 12:26 | PROVIDERS: Visit Provider Internal Medicine Medical Oncology | DX: G47.33 Obstructive sleep apnea (adult) (pediatric) (principal); R06.02 Shortness of breath; I10 Essential (primary) hypertension; Z98.890 Other specified postprocedural states; Z45.2 Encounter for adjustment and management of vascular access device | CPT/HCPCS: 94762; 96523; J1642 ==

== ENCOUNTER 2019-05-20 09:16 | Outpatient (CLI) | payer MEDICARE, SELFPAY | END 2019-05-20 09:24 | disposition home or self-care (01) | LOC: INF 09:16 | PROVIDERS: Visit Provider Nurse Practitioner | DX: Z45.2 Encounter for adjustment and management of vascular access device (principal) | CPT/HCPCS: 96523; J1642 ==

== ENCOUNTER 2019-06-17 11:03 | Outpatient (CLI) | payer MEDICARE, SELFPAY | END 2019-06-17 11:19 | disposition home or self-care (01) | LOC: INF 11:03 | PROVIDERS: Visit Provider Nurse Practitioner | DX: Z45.2 Encounter for adjustment and management of vascular access device (principal) | CPT/HCPCS: 96523; J1642 ==

== ENCOUNTER 2019-06-21 20:29 | Observation (INO) ==
[2019-06-21 20:46] LABS: Basophils % 0.2 % (0.1-2.0); Eosinophils # 0.4 K/mm3 (0.0-0.4); Eosinophils % 3.7 % (0.1-12.0); Hematocrit 46.8 % (42.0-52.0); Hemoglobin 15.4 g/dL (14.1-18.0); Lymphocytes # 2.2 K/mm3 (0.7-4.5); Mean Corpuscular Volume 97.3 fl (80-94); Mean Platelet Volume 7.4 fl (7.4-10.4); Monocytes # 0.5 K/mm3 (0.1-1.0); Monocytes % 5.6 % (1.7-9.3); Neutrophils # 6.5 K/mm3 (1.8-7.8); Neutrophils % 67.5 % (37.0-80.0); Platelet Count 246 K/mm3 (142-424); Red Blood Count 4.81 M/mm3 (4.60-6.20); Red Cell Distribution Width 12.9 % (11.5-17.5); White Blood Count 9.7 K/mm3 (4.8-10.8)
[2019-06-21 20:59] LABS: Anion Gap 12.1 mEq/L (5-15); Blood Urea Nitrogen 15 mg/dL (7-18); Calcium 9.7 mg/dL (8.5-10.1); Carbon Dioxide 30 mmol/L (21.0-32.0); Chloride 104 mmol/L (98-107); Glucose 98 mg/dL (74-106); Sodium 142 mmol/L (136-145)
--- NOTE | 2019-06-21 21:16 | Emergency Department Note ---
ED Disposition Clinical Impression: TIA (transient ischemic attack), Hypertensive emergency Disposition: Admitted as Observation Condition on Discharge: Good Referrals: Rafael Elizabeth MD [Primary Care Provider] - - Critical Care Critical Care Time: No Attestation: On 06/21/19, the high probability of a clinically significant, sudden or life threatening deterioration of the following system(s) required my full and direct attention, intervention and personal management. The time I documented below is in addition to time spent performing reported procedures but includes the following listed in this critical care notation. Medical Decision Making - Medical Records Medical records reviewed: Yes: I reviewed the patient's medical records. - Artemio Inquiry Pt receiving controlled substance: No Vital Signs: 06/21/19 20:29 06/21/19 20:35 06/21/19 21:08 Pulse Rate [Right Brachial] 78 78 64 Respiratory Rate 16 16 18 Blood Pressure [Right Arm] 207/110 H 207/110 H 180/103 H Blood Pressure Mean [Right Arm] 142 142 128 Blood Pressure Source [Right Arm] Automatic Cuff Automatic Cuff Automatic Cuff Blood Pressure Position [Right Arm] Sitting Sitting Sitting 02 Sat by Pulse Oximetry 99 99 99 Oxygen Delivery Method Room Air Room Air Room Air 06/21/19 21:37 Pulse Rate [Right Brachial] 68 Respiratory Rate 16 Blood Pressure [Right Arm] 179/114 H Blood Pressure Mean [Right Arm] 135 Blood Pressure Source [Right Arm] Automatic Cuff Blood Pressure Position [Right Arm] Sitting 02 Sat by Pulse Oximetry 95 Oxygen Delivery Method Room Air - Lab Data Lab results reviewed: Yes: I reviewed the patient's lab results. Lab Results 06/21/19 20:35: WBC 9.7, RBC 4.81, Hgb 15.4, Hct 46.8, MCV 97.3 H, MCH 32.1 H, M CHC 33.0, RDW 12.9, Plt Count 246, MPV 7.4, Neut % (Auto) 67.5, Lymph % (Auto) 23.0, [place] % (Auto) 5.6, Eos % (Auto) 3.7, Baso % (Auto) 0.2, Neut # (Auto) 6.5, Lymph # (Auto) 2.2, Stafford # (Auto) 0.5, Eos # (Auto) 0.4, Baso # (Auto) 0.0 06/21/19 20:35: Sodium 142, Potassium 4.1, Chloride 104, Carbon Dioxide 30, Anion Gap 12.1, BUN 15, Creatinine 1.21, Estimated Creat Clear 67, Estimated GFR 59, Est GFR ( Amer) 72, Glucose 98, Calcium 9.7, Troponin I < 0.02 Result diagrams: 06/21/19 20:35 06/21/19 20:35 Orders (Tests/Meds): ED MEDICATIONS Discontinued Medications Generic Name Dose Route Start Last Admin Trade Name Pam PRN Reason Stop Dose Admin Clonidine HCl 0.1 mg 06/21/19 21:31 06/21/19 21:38 Clonidine 0.1mg Tablet PO 06/21/19 21:32 0.1 mg ONCE ONE Administration ORDERS Category Date Time Status CT head/brain wo con Stat Cat Scan 06/21/19 20:38 Taken XR chest AP Stat Exams 06/21/19 20:38 Taken ESR [Erythrocyte Sedimentation Rate] Stat Lab 06/21/19 20:35 Received - CT Data CT Scan: Head Time Received: 21:[address] Reviewed: Yes: I have viewed the radiologist's interpretation Preliminary Findings: Normal/NAD - ECG Data Tracing #1 Normal Sinus Rhythm: Yes Ischemic changes: non-specific ST-T wave changes - Physician Consults Physician Consulted: sound Reason -: Admission Headache HPI - General Chief Complaint: Headache Stated Complaint: high blood pressure Time Seen by Provider: 06/21/19 20:50 Mode of Arrival: Ambulatory Source of Information: Patient, Medical Record Limitations: No Limitations Description of Symptoms (Recalled from ER Triage Doc. by RN): Pt c/o high b/p all day and advises around 183 the left side of his face started to go numb and he had developed a headache - History of Present Illness HPI Narrative: parasthesia lt side of face with assoc elevated bp - has seen pcp and adjusting meds MD Complaint: headache Onset (ago): hour(s) Onset description: gradual Location: diffuse Severity: similar to previous episodes Context: occurred at rest Associated symptoms: none Treatments prior to arrival: none - Related Data Home Medications Medication Instructions Recorded Confirmed aspirin 81 mg chewable tablet 81 mg PO HS 11/05/17 06/21/19 atorvastatin 40 mg tablet 40 mg PO QDAY 11/05/17 06/21/19 niacin 250 mg tablet 250 mg PO QDAY 11/05/17 06/21/19 Umeclidinium Brm/Vilanterol Tr 1 each IH DAILY 11/28/17 06/21/19 [Anoro Ellipta 62.5-25 Mcg INH] Cholecalciferol (Vitamin D3) 5,000 unit PO DAILY 12/10/17 06/21/19 [Vitamin D3] Cyanocobalamin (Vitamin B-12) 1,000 mcg PO DAILY 12/10/17 06/21/19 [Vitamin B-12] levothyroxine 88 mcg capsule 88 mcg PO DAILY 09/14/18 06/21/19 ranitidine 150 mg tablet 150 mg PO DAILY tab 03/12/19 06/21/19 lisinopril 5 mg tablet 10 mg PO DAILY tab 05/17/19 06/21/19 meloxicam 15 mg tablet 15 mg PO DAILY tab 05/17/19 06/21/19 metoprolol succinate ER 25 mg 25 mg PO DAILY tab 05/17/19 06/21/19 tablet,extended release 24 hr terazosin 2 mg capsule 2 mg PO QHS cap 05/17/19 06/21/19 Allergies Allergy/AdvReac Type Severity Reaction Status Date / Time No Known Allergies Allergy Verified 06/17/19 10:31 [facility] History - Hepatitis A Screen Drug use history?: No High risk sexual behaviors?: No History of sexually transmitted infection?: No Currently employed?: No Childcare worker?: No Do you have indoor plumbing?: Yes Do you have electricity?: Yes Attestation statement:: This patient has been screened for Hepatitis A risk factors. I have reviewed the patient's past medical history: Yes Medical History: Reports:: Cancer, Chronic Obstructive Pulmonary Disease (COPD), Hyperlipidemia, Hypertension Denies:: Anxiety, Depression, Diabetes Mellitus Type 1, Diabetes Mellitus Type 2, Internal Pacemaker, MRSA, Seizures Other Medical History: Reports: Chemotherapy, Thyroid Disease. Denies: Blood Transfusion Reaction Comment: colon ca Laterality Cases: Other Surgeries: Yes: Cancer Surgery, Cardiac Catheterization, Colonoscopy, Colon Resection, Coronary Stent, Hernia Repair, Other. No: Pacemaker Amputation: No Fractures: No - Social History Smoking Status: Current every day smoker Tobacco Type: cigarettes # Packs/Day (cigarettes): 1 #Yrs smoked (if former smoker): 53 Alcohol Intake: never Alcohol Intake Frequency:: other Substance Use Type: denies use Occupational Status: retired Housing: house Household Members: spouse, family - Psychiatric History Pschychiatric History:: Denies:: Anxiety, Attention Deficit Disorder, Bipolar Disorder, Depression, Eating Disorder, Post Traumatic Stress Disorder, Suicide Attempt, Psychiatric Treatment, Schizophrenia Family Hx:: Heart Attack, Cancer, Diabetes ROS Obtained: Yes All systems reviewed & no additional complaints - Constitutional Constitutional: Denies fever(s) - Eyes Eyes: Denies change in vision - ENT Ears, Nose, Mouth, and Throat: Denies sore throat - Cardiovascular Cardiovascular: Denies chest pain - Respiratory Respiratory: No cough - Gastrointestinal Gastrointestingal: Denies: abdominal pain - Genitourinary Male Genitourinary: Denies hematuria - Musculoskeletal Musculoskeletal: Denies joint pain - Integumentary/Breasts Skin/Breast: Denies rash - Neurologic Neurologic: Reports as per HPI, Denies abnormal speech, Denies focal weakness, Reports headache(s), Reports sensory deficit Physical Exam - General General appearance: alert - Head Head exam: normocephalic - Eye Eye exam: Present: PERRL, EOMI - ENT ENT exam: Present: mucous membranes dry - Neck Neck exam: Present: trachea midline - Respiratory Respiratory exam: Present: normal lung sounds bilaterally. Absent: respiratory distress - Cardiovascular Cardiovascular exam: Present: regular rate, systolic murmur, +S4 - Abdominal Exam Abdominal exam: Present: soft - Extremities Exam Extremities exam: Present: full ROM - Neurological Exam Neurological exam: Present: alert, oriented X3, CN II-XII intact - Psychiatric Psychiatric exam: Present: normal affect - Skin Skin exam: Present: rash
[2019-06-22 04:55] LABS: Anion Gap 9.2 mEq/L (5-15); Calcium 9.1 mg/dL (8.5-10.1)
[2019-06-22 04:59] LABS: Basophils % 0.4 % (0.1-2.0); Eosinophils # 0.4 K/mm3 (0.0-0.4); Eosinophils % 4.9 % (0.1-12.0); Hematocrit 43.3 % (42.0-52.0); Lymphocytes # 1.9 K/mm3 (0.7-4.5); Lymphocytes % 24.1 % (10-50); Mean Corpuscular HGB Conc 32.4 g/dL (31.8-35.4); Mean Platelet Volume 7.2 fl (7.4-10.4); Monocytes # 0.4 K/mm3 (0.1-1.0); Monocytes % 5.2 % (1.7-9.3); Neutrophils # 5.1 K/mm3 (1.8-7.8); Neutrophils % 65.4 % (37.0-80.0); Platelet Count 211 K/mm3 (142-424); Red Blood Count 4.42 M/mm3 (4.60-6.20); Red Cell Distribution Width 12.9 % (11.5-17.5); White Blood Count 7.7 K/mm3 (4.8-10.8)
--- NOTE | 2019-06-22 07:47 | Pharmacy Consult Notes ---
[facility] Pharmacy VTE Monitoring - Patient Demographics Admission date: 06/21/19 Report Date: 06/22/19 Time: 07:47 Allergies/Adverse Reactions: Patient Allergies No Known Allergies Allergy (Verified 06/17/19 10:31) Height: 1.78 m Weight: 83.206 kg Patient Problems: Current Active Problems TIA (transient ischemic attack) (Acute) Hypertensive emergency (Acute) - VTE Risk Labs: VTE Related Lab Results Hgb 14.0 g/dL (14.1-18.0) L 06/22/19 04:30 Hct 43.3 % (42.0-52.0) 06/22/19 04:30 Plt Count 211 K/mm3 (142-424) 06/22/19 04:30 BUN 12 mg/dL (7-18) 06/22/19 04:30 Creatinine 1.18 mg/dL (0.70-1.30) 06/22/19 04:30 Estimated Creat Clear 69 mL/min (50-200) 06/22/19 04:30 Was VTE Risk Assessment Performed: Yes VTE Risk Level: Low Risk - Prophylaxis VTE Prophylaxis Ordered?: Yes Types of VTE Prophylaxis: TEDS Knee High Location of Applied Device: Bilateral Lower Extremeties - VTE Diagnosis Confirmed Treatment or plan recommended: Continue Current Treatment
--- NOTE | 2019-06-22 08:27 | History & Physical Report ---
*Admission Date: 06/21/19 *Chief complaint: Hypertensive crisis *History of present illness: Mr. Reynoso is a 68-year-old male with a history of hypertension, tobacco use disorder, ASCVD/status post [place], and hiatal hernia who presented to [facility] emergency room last evening when systolic blood pressure was greater than 200 and diastolic pressure greater than 110. He states he developed symptoms of numbness and tingling on the left on the left side of the face. He did have some chest heaviness/pressure with the hypertension. He has been having more frequent headaches as well. He states he was in the emergency room last week due to his blood pressure and medication changes were made. He was also seen in the office on 06/19/2019 with medication changes. Due to failure of outpatient care patient was admitted for stabilization and adjustment of meds. This a.m. the patient states he feels much better with the decrease in his blood pressure. He denies chest pain shortness of breath. He relates a negative cardiac work-up about a year ago with carotid ultrasound, echocardiogram, and cardiac cath. Troponin I has been negative x3. [facility] History Medical History: Reports:: Atherosclerotic Heart Disease, Cancer, Chronic Obstructive Pulmonary Disease (COPD), Coronary Artery Disease, Home Oxygen, Hyperlipidemia, Hypertension, Lung Disease, Myocardial Infarction Denies:: Anxiety, Depression, Diabetes Mellitus Type 1, Diabetes Mellitus Typ e 2, Internal Pacemaker, MRSA, Palpitations, Seizures *Have you ever received a pneumonia vaccine?: Yes *Have you received a flu vaccine this season?: No Other Medical History: Reports: Chemotherapy, Hypothyroidism, Thyroid Disease. Denies: Blood Transfusion Reaction Comment:: BPH; GERD, and sleep apnea. Laterality Cases: Left: Carpal Tunnel Release, Bilateral: Tonsillectomy Other Surgeries: Yes: Cancer Surgery (Colon resection), Cardiac Catheterization, Colonoscopy, Colon Resection, Coronary Stent, Hernia Repair, Other. No: Pacemaker Amputation: No Fractures: No - *Social History Educational Level: Completed High School Smoking Status: Current every day smoker Tobacco Type: cigarettes # Packs/Day (cigarettes): 1 #Yrs smoked (if former smoker): 53 Alcohol Intake: former Alcohol Intake Frequency:: other Substance Use Type: denies use *Occupational Status:: retired Housing: house Household Members: spouse, family *Travel in the last 8 weeks: None - Psychiatric History Expresses thoughts of harming self/others: None Suicide Plan Description: No Plan Pschychiatric History:: Denies:: Anxiety, Attention Deficit Disorder, Bipolar Disorder, Depression, Eating Disorder, Post Traumatic Stress Disorder, Suicide Attempt, Psychiatric Treatment, Schizophrenia Family Hx:: Cancer, Diabetes, Heart Attack, Hypertension Review of Systems - Constitutional Reports headache(s), Denies chills - Eyes Denies change in vision - ENT Reports headache(s), Denies ear pain, Denies sore throat - *Cardiovascular Reports chest pain (Describes the discomfort as chest pressure when his blood pressure was up.), Denies leg swelling, Denies rapid, pounding, or irregular heartbeat - *Respiratory Reports cough (Easily in the a.m.), Reports shortness of breath (At baseline, sometimes uses oxygen at night with his CPAP), Denies coughing up blood - *Gastrointestinal Denies abdominal pain, Denies bloating, Denies change in bowel habits, Denies change in stools, Denies coffee ground vomit, Denies constipation, Denies loose stools, Denies heartburn, Denies difficulty swallowing, Denies heartburn, Denies vomiting blood, Denies black, tarry stools, Denies nausea, Denies vomiting - *Genitourinary Denies difficulty urinating - *Musculoskeletal Denies abnormal walking - *Neurologic Reports headache(s), Reports tingling/numbness/burning sensations (On the left side of his face), Reports sensory deficit, Denies abnormal walking, Denies abnormal speech, Denies confusion, Denies dizziness, Denies localized weakness Meds Home Medications Medication Instructions Recorded Confirmed Type atorvastatin 40 mg tablet 40 mg PO DAILY 11/05/17 06/22/19 History niacin 250 mg tablet 250 mg PO DAILY 11/05/17 06/22/19 History Umeclidinium Brm/Vilanterol Tr 1 each IH DAILY 11/28/17 06/21/19 History [Anoro Ellipta 62.5-25 Mcg INH] Cholecalciferol (Vitamin D3) 5,000 unit PO DAILY 12/10/17 06/21/19 History [Vitamin D3] Cyanocobalamin (Vitamin B-12) 1,000 mcg PO DAILY 12/10/17 06/21/19 History [Vitamin B-12] levothyroxine 88 mcg capsule 88 mcg PO DAILY 09/14/18 06/21/19 History ranitidine 150 mg tablet 150 mg PO DAILY tab 03/12/19 06/21/19 History lisinopril 5 mg tablet 10 mg PO DAILY tab 05/17/19 06/21/19 History meloxicam 15 mg tablet 15 mg PO DAILY tab 05/17/19 06/21/19 History metoprolol succinate ER 25 mg 25 mg PO DAILY tab 05/17/19 06/21/19 History tablet,extended release 24 hr terazosin 2 mg capsule 2 mg PO HS cap 05/17/19 06/22/19 History Aspirin [Aspirin 81mg chewable 81 mg PO HS 06/22/19 06/22/19 History tab] Allergies Allergy/AdvReac Type Severity Reaction Status Date / Time No Known Allergies Allergy Verified 06/17/19 10:31 Exam Vital signs and Labs for Last 24 Hours: Temp Pulse Resp BP Pulse Ox 98.4 F 74 19 139/89 90 L 06/22/19 07:46 06/22/19 07:46 06/22/19 07:46 06/22/19 07:46 06/22/19 07:46 Laboratory Results - last 24 hr 06/21/19 20:35: WBC 9.7, RBC 4.81, Hgb 15.4, Hct 46.8, MCV 97.3 H, MCH 32.1 H, MCHC 33.0, RDW 12.9, Plt Count 246, MPV 7.4, Neut % (Auto) 67.5, Lymph % (Auto) 23.0, [place] % (Auto) 5.6, Eos % (Auto) 3.7, Baso % (Auto) 0.2, Neut # (Auto) 6.5, Lymph # (Auto) 2.2, [place] # (Auto) 0.5, Eos # (Auto) 0.4, Baso # (Auto) 0.0 06/21/19 20:35: Sodium 142, Potassium 4.1, Chloride 104, Carbon Dioxide 30, Anion Gap 12.1, BUN 15, Creatinine 1.21, Estimated Creat Clear 67, Estimated GFR 59, Est GFR ( Amer) 72, Glucose 98, Calcium 9.7, Troponin I < 0.02 06/21/19 20:35: ESR 47 H 06/22/19 01:25: Troponin I < 0.02 06/22/19 04:30: Troponin I < 0.02 06/22/19 04:30: WBC 7.7, RBC 4.42 L, Hgb 14.0 L, Hct 43.3, MCV 98.0 H, MCH 31.7 H, MCHC 32.4, RDW 12.9, Plt Count 211, MPV 7.2 L, Neut % (Auto) 65.4, Lymph % (Auto) 24.1, [place] % (Auto) 5.2, Eos % (Auto) 4.9, Baso % (Auto) 0.4, Neut # (Auto) 5.1, Lymph # (Auto) 1.9, [place] # (Auto) 0.4, Eos # (Auto) 0.4, Baso # (Auto) 0.0 06/22/19 04:30: Sodium 142, Potassium 4.2, Chloride 107, Carbon Dioxide 30, Anion Gap 9.2, BUN 12, Creatinine 1.18, Estimated Creat Clear 69, Estimated GFR 61, Est GFR ( Amer) 74, Glucose 105, Calcium 9.1, Magnesium 1.8 I & O for Last 24 hours: Intake & Output 06/19/19 06/20/19 06/21/19 06/22/19 11:59 11:59 11:59 11:59 Intake Total 1244 / 1244 Balance 1244 / 1244 Weight 183 lb 7 oz Radiology Reports for the Last 24 Hours: 06/21/2019 chest x-ray IMPRESSION: Limited exam, fibrotic change left suprahilar region 06/21/2019 CT of the head IMPRESSION: No acute intracranial finding - Constitutional no acute distress Comments: Sitting up in the bed eating his breakfast. Appears comfortable. - *Routine HEENT Exam Head: Present: normocephalic, atraumatic Eye: Present: EOMI, PERRL. Absent: conjunctival icterus, scleral injection ENT: Present: mucous membranes moist, oropharynx clear, nares patent - *Routine Neck Exam Present: supple, full ROM. Absent: carotid bruit, lymphadenopathy, thyromegaly - *Routine Respiratory Exam Present: CTA bilaterally (Diminished breath sounds posteriorly) - *Routine Cardiovascular Exam Present: RRR - *Routine Abdominal Exam Present: soft, normoactive bowel sounds. Absent: tenderness, distended - *Routine Extremities Exam Absent: edema - *Routine Neurological Exam Present: alert, oriented X3, moving all extremities, normal tone, normal speech. Absent: sensory deficit, motor deficit, pronator drift, altered mental status, facial asymmetry, tremors Assessment and Plan (1) TIA (transient ischemic attack) Current visit: Yes Status: Acute Category: Medical Code(s): G45.9 - Transient cerebral ischemic attack, unspecified (2) Hypertensive emergency Current visit: Yes Status: Acute Category: Medical Code(s): I16.1 - Hypertensive emergency (3) Tobacco use disorder Current visit: Yes Status: Chronic Category: Medical Code(s): F17.200 - Nicotine dependence, unspecified, uncomplicated (4) ASCVD (arteriosclerotic cardiovascular disease) Current visit: Yes Status: Chronic Category: Medical Code(s): I25.10 - Atherosclerotic heart disease of [place] coronary artery without angina pectoris (5) Sleep disorder Current visit: Yes Status: Chronic Category: Medical Code(s): G47.9 - Sleep disorder, unspecified (6) HLD (hyperlipidemia) Current visit: No Status: Chronic Qualifiers: Hyperlipidemia type: mixed hyperlipidemia Qualified Code(s): E78.2 - Mixed hyperlipidemia Category: Medical Code(s): E78.5 - Hyperlipidemia, unspecified (7) HTN (hypertension) Current visit: No Status: Chronic Qualifiers: Hypertension type: essential hypertension Qualified Code(s): I10 - Essential (primary) hypertension Category: Medical Code(s): I10 - Essential (primary) hypertension - Assessment and plan all Dx Assessment and Plan for all problems:: Blood pressure much improved this a.m. and patient does feel better. We will continue to monitor.
--- NOTE | 2019-06-22 17:31 | Electrocardiograph Report ---
APPROVED REPORT Exam: Resting ECG HR:67 bpm ECG Measurements Heart Rate 67 AXES NE 122 P -12 QRSd 98 QRS -7 QT 400 T68 QTc 422 <Conclusion> Normal sinus rhythm with PAC'S Otherwise a Normal ECG Electronically signed by : Johnathon Jaquez, 06/22/2019 17:30:37
--- NOTE | 2019-06-23 08:24 | Progress Note ---
Internal Medicine - PN: Subj *Date: 06/23/19 *Time: 08:20 Interval history: Patient states he feels about the same today. Still has some numbness on the left side of his face. He is eating without problems. Bowels have moved. Denies chest pain and shortness of breath. He ambulates in the room without difficulty. Exam Vital signs and Labs for Last 24 Hours: Temp Pulse Resp BP Pulse Ox 98.4 F 71 19 128/81 90 L 06/23/19 08:00 06/23/19 08:00 06/23/19 08:00 06/23/19 08:00 06/23/19 08:00 Laboratory Results - last 24 hr 06/22/19 17:45: Stl Aeromonas (PCR) Not detected, Stl C. cayetanensis PCR Not detected, Stool Rotavirus (PCR) Not detected, Stl Adenov F 40/41 PCR Not detected, Stool Astrovirus (PCR) Not detected, Stool Campylobacter PCR Not detected, Stl C.difficile Tox PCR Not detected, Stool Cryptosporidium PCR Not detected, Stl E.coli Shiga Tox PCR Not detected, Stool E coli O157 PCR Not detected, Stl Enterotoxigenic E PCR Not detected, Stool EPEC (PCR) Not detected, Stool EAEC (PCR) Not detected, Stl E. histolytica PCR Not detected, Stool Giardia Lamblia PCR Not detected, Stool Salmonella PCR Not detected, Stool Sapovirus (PCR) Not detected, Stl P. shigelloides PCR Not detected, Stl Shigella/EIEC PCR Not detected, St Y.enterocolitica PCR Not detected, Stool Vibrio (PCR) Not detected, Stl Vibrio cholerae PCR Not detected, Stl Norovirus GI/GII PCR Not detected I & O for Last 24 hours: Intake & Output 06/20/19 06/21/19 06/22/19 06/23/19 11:59 11:59 11:59 11:59 Intake Total 1244 / 1244 1835 / 1835 Output Total 100 / 100 Balance 1244 / 1244 1735 / 1735 Weight 183 lb 7 oz 185 lb 9 oz Radiology Reports for the Last 24 Hours: Renal ultrasound 06/22/2019 IMPRESSION: No hydronephrosis. Small right renal cyst. - Constitutional no acute distress Comments: Sitting in chair at bedside fully dressed. Appears comfortable. - *Routine Respiratory Exam Present: CTA bilaterally (Anteriorly and posteriorly) - *Routine Cardiovascular Exam Present: RRR - *Routine Abdominal Exam Present: soft, normoactive bowel sounds. Absent: tenderness - *Routine Extremities Exam Absent: edema, calf tenderness - *Routine Neurological Exam Present: alert, oriented X3 Assessment and Plan (1) TIA (transient ischemic attack) Current visit: Yes Status: Acute Category: Medical Code(s): G45.9 - Transient cerebral ischemic attack, unspecified (2) Hypertensive emergency Current visit: Yes Status: Acute Category: Medical Code(s): I16.1 - Hypertensive emergency (3) Tobacco use disorder Current visit: Yes Status: Chronic Category: Medical Code(s): F17.200 - Nicotine dependence, unspecified, uncomplicated (4) ASCVD (arteriosclerotic cardiovascular disease) Current visit: Yes Status: Chronic Category: Medical Code(s): I25.10 - Atherosclerotic heart disease of [place] coronary artery without angina pectoris (5) Sleep disorder Current visit: Yes Status: Chronic Category: Medical Code(s): G47.9 - Sleep disorder, unspecified (6) HLD (hyperlipidemia) Current visit: No Status: Chronic Qualifiers: Hyperlipidemia type: mixed hyperlipidemia Qualified Code(s): E78.2 - Mixed hyperlipidemia Category: Medical Code(s): E78.5 - Hyperlipidemia, unspecified (7) HTN (hypertension) Current visit: No Status: Chronic Qualifiers: Hypertension type: essential hypertension Qualified Code(s): I10 - Essential (primary) hypertension Category: Medical Code(s): I10 - Essential (primary) hypertension - Assessment and plan all Dx Assessment and Plan for all problems:: Blood pressure much improved. Good for discharge today.
--- NOTE | 2019-06-23 13:33 | Discharge Summary ---
General - General Admission date:: 06/21/19 Discharge date: 06/23/19 HPI HPI: Mr. Reynoso is a 68-year-old male with a history of hypertension, tobacco use disorder, ASCVD/status post [place], and hiatal hernia who presented to [facility] emergency room when systolic blood pressure was greater than 200 and diastolic pressure greater than 110. He stated that he developed symptoms of numbness and tingling on the left side of the face. He did have some chest heaviness/pressure with the hypertension. He noted more frequent headaches as well. He stated he was in the emergency room last week due to his blood pressure and medication changes were made. He was also seen in the office on 06/19/2019 with medication changes. Due to failure of outpatient care patient was admitted for stabilization and adjustment of meds. The following AM the patient stated that he felt much better with the decrease in his blood pressure. He denied chest pain and shortness of breath. He related a negative cardiac work-up about a year ago with carotid ultrasound, echocardiogram, and cardiac cath. Troponin I was noted to be negative x3. Hospital Course Hospital Course: Patient did well with this day. Blood pressure decreased with a low of 105/69. He was on lisinopril 5 mg daily metoprolol 25 mg at at bedtime. Renal ultrasound showed no acute changes. He ate well. He voided without difficulty. He ambulated without problems. He wore CPAP at night. He denied further chest pain and shortness of breath. On 06/23/2019 patient was ready to go home. He was discharged in stable and satisfactory condition medications as per medication list. He will follow-up in the office of [facility] on 06/26/2019. Objective Vital signs: Temp Pulse Resp BP Pulse Ox 98.4 F 71 19 155/86 H 90 L 06/23/19 08:00 06/23/19 08:00 06/23/19 08:00 06/23/19 10:15 06/23/19 08:00 Narrative: Exam Vital signs and Labs for Last 24 Hours: Temp Pulse Resp BP Pulse Ox 98.4 F 71 19 128/81 90 L 06/23/19 08:00 06/23/19 08:00 06/23/19 08:00 06/23/19 08:00 06/23/19 08:00 Laboratory Results - last 24 hr 06/22/19 17:45: Stl Aeromonas (PCR) Not detected, Stl C. cayetanensis PCR Not detected, Stool Rotavirus (PCR) Not detected, Stl Adenov F 40/41 PCR Not detected, Stool Astrovirus (PCR) Not detected, Stool Campylobacter PCR Not detected, Stl C.difficile Tox PCR Not detected, Stool Cryptosporidium PCR Not detected, Stl E.coli Shiga Tox PCR Not detected, Stool E coli O157 PCR Not detected, Stl Enterotoxigenic E PCR Not detected, Stool EPEC (PCR) Not detected, Stool EAEC (PCR) Not detected, Stl E. histolytica PCR Not detected, Stool Giardia Lamblia PCR Not detected, Stool Salmonella PCR Not detected, Stool Sapovirus (PCR) Not detected, Stl P. shigelloides PCR Not detected, Stl Shigella/EIEC PCR Not detected, St Y.enterocolitica PCR Not detected, Stool Vibrio (PCR) Not detected, Stl Vibrio cholerae PCR Not detected, Stl Norovirus GI/GII PCR Not detected I & O for Last 24 hours: Intake & Output 06/20/19 06/21/19 06/22/19 06/23/19 11:59 11:59 11:59 11:59 Intake Total 1244 / 1244 1835 / 1835 Output Total 100 / 100 Balance 1244 / 1244 1735 / 1735 Weight 183 lb 7 oz 185 lb 9 oz Radiology Reports for the Last 24 Hours: Renal ultrasound 06/22/2019 IMPRESSION: No hydronephrosis. Small right renal cyst. - Constitutional no acute distress Comments: Sitting in chair at bedside fully dressed. Appears comfortable. - *Routine Respiratory Exam Present: CTA bilaterally (Anteriorly and posteriorly) - *Routine Cardiovascular Exam Present: RRR - *Routine Abdominal Exam Present: soft, normoactive bowel sounds. Absent: tenderness - *Routine Extremities Exam Absent: edema, calf tenderness - *Routine Neurological Exam Present: alert, oriented X3 Results Completed studies during hospitalization [Text1]: Renal US 06/22/19 IMPRESSION: No hydronephrosis. Small right renal cyst. 06/21/2019 chest x-ray IMPRESSION: Limited exam, fibrotic change left suprahilar region 06/21/2019 CT of the head IMPRESSION: No acute intracranial finding Laboratory Tests 06/21/19 06/21/19 06/22/19 20:35 20:35 01:25 WBC RBC Hgb Hct MCV MCH Plt Count ESR 47 H Sodium Potassium Chloride Carbon Dioxide Anion Gap BUN Creatinine Estimated Creat Clear Estimated GFR Est GFR ( Amer) Glucose Calcium Magnesium Troponin I < 0.02 < 0.02 06/22/19 06/22/19 06/22/19 04:30 04:30 04:30 WBC 7.7 RBC 4.42 L Hgb 14.0 L Hct 43.3 MCV 98.0 H MCH 31.7 H Plt Count 211 ESR Sodium 142 Potassium 4.2 Chloride 107 Carbon Dioxide 30 Anion Gap 9.2 BUN 12 Creatinine 1.18 Estimated Creat Clear 69 Estimated GFR 61 Est GFR ( Amer) 74 Glucose 105 Calcium 9.1 Magnesium 1.8 Troponin I < 0.02 Labs on day of discharge: Labs from last 24 hours 06/22/19 17:45 Stl Aeromonas (PCR) Not detected Stl C. cayetanensis PCR Not detected Stool Rotavirus (PCR) Not detected Stl Adenov F 40/41 PCR Not detected Stool Astrovirus (PCR) Not detected Stool Campylobacter PCR Not detected Stl C.difficile Tox PCR Not detected Stool Cryptosporidium PCR Not detected Stl E.coli Shiga Tox PCR Not detected Stool E coli O157 PCR Not detected Stl Enterotoxigenic E PCR Not detected Stool EPEC (PCR) Not detected Stool EAEC (PCR) Not detected Stl E. histolytica PCR Not detected Stool Giardia Lamblia PCR Not detected Stool Salmonella PCR Not detected Stool Sapovirus (PCR) Not detected Stl P. shigelloides PCR Not detected Stl Shigella/EIEC PCR Not detected St Y.enterocolitica PCR Not detected Stool Vibrio (PCR) Not detected Stl Vibrio cholerae PCR Not detected Stl Norovirus GI/GII PCR Not detected DS: Diagnosis - Discharge Diagnosis (1) TIA (transient ischemic attack) Status: Acute (2) Hypertensive emergency Status: Acute (3) Tobacco use disorder Status: Chronic (4) ASCVD (arteriosclerotic cardiovascular disease) Status: Chronic (5) Sleep disorder Status: Chronic (6) HLD (hyperlipidemia) Status: Chronic (7) HTN (hypertension) Status: Chronic Discharge Plan - Patient Discharge Instructions ACTIVITY: Continue current activity DIET: continue same diet Patient Instructions: Transient Ischemic Attack, DI for Transient Ischemic Attack - Follow up Plan Follow up with: Rafael Elizabeth MD [Primary Care Provider] - 06/26/19 9:30 am Disposition: Home, Self-Alf Medications: Home Medications Medication Instructions Recorded Confirmed Type atorvastatin 40 mg tablet 40 mg PO HS 11/05/17 06/22/19 History niacin 250 mg tablet 250 mg PO HS 11/05/17 06/22/19 History Umeclidinium Brm/Vilanterol Tr 1 each IH DAILY 11/28/17 06/21/19 History [Anoro Ellipta 62.5-25 Mcg INH] Cholecalciferol (Vitamin D3) 5,000 unit PO DAILY 12/10/17 06/21/19 History [Vitamin D3] Cyanocobalamin (Vitamin B-12) 1,000 mcg PO DAILY 12/10/17 06/22/19 History [Vitamin B-12] levothyroxine 88 mcg capsule 88 mcg PO DAILY 09/14/18 06/22/19 History ranitidine 150 mg tablet 150 mg PO DAILY tab 03/12/19 06/22/19 History meloxicam 15 mg tablet 15 mg PO DAILY tab 05/17/19 06/22/19 History metoprolol succinate ER 25 mg 25 mg PO DAILY tab 05/17/19 06/22/19 History tablet,extended release 24 hr terazosin 2 mg capsule 2 mg PO HS cap 05/17/19 06/22/19 History Acetaminophen [Tylenol 500mg 1 tab PO Q4HP PRN 06/22/19 06/22/19 History tablet] Aspirin [Aspirin 81mg chewable 81 mg PO HS 06/22/19 06/22/19 History tab] Simethicone [Gas Relief] 250 mg PO AC PRN 06/22/19 06/22/19 History Lisinopril [Lisinopril 5mg 5 mg PO DAILY #30 tab 06/23/19 Rx Tablet] Prescriptions/Medication Reconciliation: Continued atorvastatin 40 mg tablet 40 mg PO HS levothyroxine 88 mcg capsule 88 mcg PO DAILY ranitidine 150 mg tablet 150 mg PO DAILY tab meloxicam 15 mg tablet 15 mg PO DAILY tab niacin 250 mg tablet 250 mg PO HS metoprolol succinate ER 25 mg tablet,extended release 24 hr 25 mg PO DAILY tab terazosin 2 mg capsule 2 mg PO HS cap Cyanocobalamin (Vitamin B-12) [Vitamin B-12] 1,000 mcg PO DAILY Cholecalciferol (Vitamin D3) [Vitamin D3] 5,000 unit PO DAILY Aspirin [Aspirin 81mg chewable tab] 81 mg PO HS Simethicone [Gas Relief] 250 mg PO AC PRN PRN Reason: gas relief Umeclidinium Brm/Vilanterol Tr [Anoro Ellipta 62.5-25 Mcg INH] 1 each IH DAILY Acetaminophen [Tylenol 500mg tablet] 1 tab PO Q4HP PRN PRN Reason: pain Lisinopril [Lisinopril 5mg Tablet] 5 mg PO DAILY #30 tab - Problem Reconciliation Problems Reviewed?: Yes
== END 2019-06-23 10:23 | disposition home or self-care (01) ==
LOC: ER 20:29 → 2ND 20:29
PROVIDERS: ADMIT Emergency Medicine; ATTEND Family Medicine
CPT/HCPCS: 36415; 70450; 71010; 71045; 76770; 80048; 83735; 84484; 85025; 85651; 87507; 93005; 94640; 99284; G0378

== ENCOUNTER 2019-07-22 14:10 | Outpatient (CLI) | payer MEDICARE, SELFPAY | END 2019-07-22 14:30 | disposition home or self-care (01) | LOC: INF 14:10 | PROVIDERS: Visit Provider Nurse Practitioner | DX: Z45.2 Encounter for adjustment and management of vascular access device (principal) | CPT/HCPCS: 96523; J1642 ==

== ENCOUNTER → 2019-07-27 08:57 | Outpatient (CLI) | payer MEDICARE, SELFPAY ==
--- NOTE | 2019-07-27 08:59 | CA_ITS ---
APPROVED REPORT [place]: Liliana Alonzo RVT Laterality: Bilateral Study Quality: Good Indications: Carotid stenosis Risk Factors Hypertension: Smoking Doppler Spectral Velocity Analysis ECA (R) 91.90/13.30 cm/s ECA (L) 72.70/11.50 cm/s dICA (R) 87.50/33.40 cm/s dICA (L) 76.10/29.60 cm/s [place] (R) 77.10/26.70 cm/s [place] (L) 77.40/31.30 cm/s pICA (R) 113.00/38.50 cm/s pICA (L) 113.00/36.40 cm/s dCCA (R) 68.40/25.90 cm/s dCCA (L) 81.10/25.10 cm/s pCCA (R) 76.60/25.30 cm/s pCCA (L) 92.40/26.80 cm/s Vert (R) 36.80/7.71 cm/s Vert (L) 49.40/16.70 cm/s ICA/CCA 1.47 ICA/CCA 1.22 Findings Study suggests 20-49% stenosis involving the right internal cartoid artery, unchanged from 12/08/18 study. Study suggests 50-69% stenosis involving the left internal carotid artery, unchanged from 12/08/18 study. Antegrade flow seen bilateral vertebral arteries. Conclusion Study suggests 20-49% stenosis involving the right internal cartoid artery, unchanged from 12/08/18 study. Study suggests 50-69% stenosis involving the left internal carotid artery, unchanged from 12/08/18 study. Antegrade flow seen bilateral vertebral arteries. there is extensive bilateral shadowing plaque which decreases signal and therefore this study underestimates stenosis. Strongly recommend cta of neck for accurate diagnosis. Electronically signed by : Preet Salazar, 07/27/2019 09:44:59
== END ==
PROVIDERS: PCP Family Medicine; Visit Provider Internal Medicine Cardiovascular Disease
DX: R09.89 Other specified symptoms and signs involving the circulatory and respiratory systems; E78.5 Hyperlipidemia, unspecified; I10 Essential (primary) hypertension; I25.10 Atherosclerotic heart disease of native coronary artery without angina pectoris; R06.00 Dyspnea, unspecified; R94.31 Abnormal electrocardiogram [ECG] [EKG]; F17.200 Nicotine dependence, unspecified, uncomplicated
CPT/HCPCS: 93880

== ENCOUNTER 2019-11-04 11:52 | Outpatient (CLI) | payer MEDICARE, SELFPAY | END 2019-11-04 12:03 | disposition home or self-care (01) | LOC: INF 11:52 | PROVIDERS: PCP Family Medicine; Visit Provider Internal Medicine Medical Oncology | DX: Z45.2 Encounter for adjustment and management of vascular access device (principal) | CPT/HCPCS: 96523; J1642 ==

== ENCOUNTER 2020-01-18 08:42 | Outpatient (CLI) | payer MEDICARE, SELFPAY | END 2020-01-18 09:00 | disposition home or self-care (01) | LOC: INF 08:42 | PROVIDERS: Visit Provider Internal Medicine Medical Oncology | DX: Z45.2 Encounter for adjustment and management of vascular access device (principal) | CPT/HCPCS: 96523; J1642 ==

== ENCOUNTER 2020-03-23 12:25 | Outpatient (CLI) | payer MEDICARE, SELFPAY | END 2020-03-23 12:35 | disposition home or self-care (01) | LOC: INF 12:26 | PROVIDERS: Visit Provider Internal Medicine Medical Oncology | DX: Z45.2 Encounter for adjustment and management of vascular access device (principal) | CPT/HCPCS: 96523; J1642 ==

== ENCOUNTER → 2020-03-29 09:09 | Outpatient (CLI) | payer MEDICARE, SELFPAY ==
--- NOTE | 2020-03-29 09:11 | CA_ITS ---
APPROVED REPORT Kennel Worker: POWER Laterality: Bilateral Indications: ROOSEVELT Doppler Spectral Velocity Analysis ECA (R) 105.40/28.30 cm/s ECA (L) 114.80/27.40 cm/s dICA (R) 90.00/34.30 cm/s dICA (L) 97.30/35.60 cm/s Enid (R) 82.30/18.80 cm/s [place] (L) 107.90/36.60 cm/s pICA (R) 103.70/40.30 cm/s pICA (L) 171.70/49.40 cm/s dCCA (R) 80.50/29.10 cm/s dCCA (L) 72.80/26.60 cm/s pCCA (R) 96.00/30.00 cm/s pCCA (L) 103.70/36.80 cm/s Vert (R) 38.60/14.60 cm/s Vert (L) 74.20/16.40 cm/s ICA/CCA 1.30 ICA/CCA 2.40 Conclusion Duplex evaluation demonstrates stenosis of the right proximal internal carotid artery in the range of 20-49% with PSV <140 cm/sec, EDV <100 cm/sec, and IC/CC Ratio <4.0.(unchanged since study done 07/27/19) Duplex evaluation demonstrates stenosis of the left proximal internal carotid artery in the range of 50-69% with PSV =140 cm/sec, EDV <100 cm/sec, and IC/CC Ratio <4.0.(unchanged since study done 07/27/19) Electronically signed by : Larry Flynn MD 03/29/2020 16:21:22
== END ==
PROVIDERS: PCP Family Medicine; Visit Provider Internal Medicine Cardiovascular Disease
DX: E78.2 Mixed hyperlipidemia (principal); I10 Essential (primary) hypertension; I25.10 Atherosclerotic heart disease of native coronary artery without angina pectoris; R06.83 Snoring; R09.89 Other specified symptoms and signs involving the circulatory and respiratory systems; R94.31 Abnormal electrocardiogram [ECG] [EKG]; I65.23 Occlusion and stenosis of bilateral carotid arteries
CPT/HCPCS: 93880

== ENCOUNTER → 2020-04-05 10:20 | Outpatient (CLI) | payer MEDICARE, SELFPAY | PROVIDERS: PCP Family Medicine; Visit Provider Nurse Practitioner Family | DX: G47.33 Obstructive sleep apnea (adult) (pediatric) (principal); G47.34 Idiopathic sleep related nonobstructive alveolar hypoventilation | CPT/HCPCS: 94762 ==

== ENCOUNTER 2020-05-11 10:24 | Outpatient (CLI) | payer MEDICARE, SELFPAY ==
[2020-05-11 10:27] VITALS: BMI 27.5
[2020-05-11 10:43] LABS: Basophils % 0.3 % (0.1-2.0); Eosinophils # 0.4 K/mm3 (0.0-0.4); Eosinophils % 5.1 % (0.1-12.0); Hematocrit 41.8 % (42.0-52.0); Hemoglobin 14.5 g/dL (14.1-18.0); Lymphocytes # 1.9 K/mm3 (0.7-4.5); Lymphocytes % 24.4 % (10-50); Mean Corpuscular HGB Conc 34.7 g/dL (31.8-35.4); Mean Corpuscular Hemoglobin 33.4 pg (27.0-31.2); Mean Corpuscular Volume 96.2 fl (80-94); Mean Platelet Volume 7.3 fl (7.4-10.4); Monocytes # 0.4 K/mm3 (0.1-1.0); Monocytes % 5.4 % (1.7-9.3); Neutrophils # 4.9 K/mm3 (1.8-7.8); Neutrophils % 64.8 % (37.0-80.0); Platelet Count 194 K/mm3 (142-424); Red Blood Count 4.34 M/mm3 (4.60-6.20); Red Cell Distribution Width 13.1 % (11.5-17.5); White Blood Count 7.6 K/mm3 (4.8-10.8)
[2020-05-11 10:51] LABS: Alanine Aminotransferase 16 U/L (12-78); Albumin Level 4.2 g/dl (3.5-5.0); Albumin/Globulin Ratio 1.4 (1.1-1.8); Alkaline Phosphatase 76 U/L (38-126); Aspartate Amino Transferase 25 U/L (17-59); Bilirubin,Total 0.5 mg/dl (0.2-1.3); Blood Urea Nitrogen 22 mg/dl (9-20); Calcium 9.2 mg/dl (8.4-10.2); Carbon Dioxide 28 mmol/L (22.0-30.0); Chloride 104 mmol/L (98-107); Creatinine Clearance Estimated 55 mL/min (50-200); Estimated Glomerular Filt Rate 46 ml/min (>60); GFR (African American) 56 ML/MIN (>60); Glucose 108 mg/dl (74-100); Sodium 140 mmol/L (136-145); Total Protein,Serum 7.2 g/dl (6.3-8.2)
== END 2020-05-11 10:37 | disposition home or self-care (01) ==
LOC: INF 10:24
PROVIDERS: Visit Provider Internal Medicine Medical Oncology
DX: C19 Malignant neoplasm of rectosigmoid junction (principal); Z45.2 Encounter for adjustment and management of vascular access device
CPT/HCPCS: 80053; 85025; J1642

== ENCOUNTER → 2020-05-26 12:11 | Outpatient (CLI) | payer MEDICARE, SELFPAY ==
[2020-05-26 14:23] LABS: Coronavirus 19 IgG Antibody Negative (Negative); Coronavirus 19 IgM Antibody Negative (Negative)
== END ==
PROVIDERS: Visit Provider Nurse Practitioner Family
DX: Z01.818 Encounter for other preprocedural examination (principal); G47.33 Obstructive sleep apnea (adult) (pediatric); G47.36 Sleep related hypoventilation in conditions classified elsewhere
CPT/HCPCS: 36415; 86328

== ENCOUNTER → 2020-05-29 19:56 | Outpatient (CLI) | payer MEDICARE, SELFPAY | PROVIDERS: PCP Family Medicine; Visit Provider Nurse Practitioner Family | DX: G47.33 Obstructive sleep apnea (adult) (pediatric) (principal); G47.36 Sleep related hypoventilation in conditions classified elsewhere | CPT/HCPCS: 95811 ==

== ENCOUNTER 2020-06-21 10:00 | Outpatient (CLI) | payer MEDICARE, SELFPAY | END 2020-06-21 10:10 | disposition home or self-care (01) | LOC: INF 10:03 | PROVIDERS: Visit Provider Internal Medicine Medical Oncology | DX: Z45.2 Encounter for adjustment and management of vascular access device (principal) | CPT/HCPCS: 96523; J1642 ==

== ENCOUNTER 2020-08-01 11:39 | Outpatient (CLI) | payer MEDICARE, SELFPAY | END 2020-08-01 11:50 | disposition home or self-care (01) | LOC: INF 11:39 | PROVIDERS: Visit Provider Internal Medicine Medical Oncology | DX: Z45.2 Encounter for adjustment and management of vascular access device (principal) | CPT/HCPCS: 96523; J1642 ==

== ENCOUNTER 2020-10-10 09:35 | Outpatient (CLI) | payer MEDICARE, SELFPAY | END 2020-10-10 09:45 | disposition home or self-care (01) | LOC: INF 09:40 | PROVIDERS: Visit Provider Internal Medicine Medical Oncology | DX: C19 Malignant neoplasm of rectosigmoid junction (principal); Z45.2 Encounter for adjustment and management of vascular access device | CPT/HCPCS: 96523; J1642 ==

== ENCOUNTER 2020-11-22 10:46 | Outpatient (CLI) | payer MEDICARE, SELFPAY | END 2020-11-22 10:55 | disposition home or self-care (01) | LOC: INF 10:46 | PROVIDERS: Visit Provider Internal Medicine Medical Oncology | DX: Z45.2 Encounter for adjustment and management of vascular access device (principal) | CPT/HCPCS: 96523; J1642 ==

== ENCOUNTER 2021-01-24 14:00 | Outpatient (CLI) | payer MEDICARE, SELFPAY | END 2021-01-24 14:20 | disposition home or self-care (01) | LOC: INF 14:09 | PROVIDERS: Visit Provider Internal Medicine Medical Oncology | DX: C19 Malignant neoplasm of rectosigmoid junction (principal); Z45.2 Encounter for adjustment and management of vascular access device | CPT/HCPCS: 96523; J1642 ==

== ENCOUNTER → 2021-04-12 13:28 | Outpatient (CLI) | payer MEDICARE, SELFPAY ==
--- NOTE | 2021-04-12 13:29 | CA_ITS ---
APPROVED REPORT Blasting Worker: Holden OSMAN Laterality: Bilateral Study Quality: Excellent Indications: adryan Risk Factors Hypertension: CAD, Smoking Doppler Spectral Velocity Analysis ECA (R) 102.50/22.40 cm/s ECA (L) 94.40/22.50 cm/s dICA (R) 109.70/37.70 cm/s dICA (L) 101.00/44.10 cm/s Enid (R) 109.70/44.60 cm/s [place] (L) 108.00/42.80 cm/s pICA (R) 119.10/44.60 cm/s pICA (L) 172.20/49.20 cm/s dCCA (R) 77.70/28.30 cm/s dCCA (L) 71.60/25.10 cm/s pCCA (R) 101.80/30.70 cm/s pCCA (L) 104.00/32.90 cm/s Vert (R) 43.70/10.90 cm/s Vert (L) 60.60/18.70 cm/s ICA/CCA 1.50 ICA/CCA 2.40 Findings Duplex evaluation demonstrates antegrade flow of the bilateral Vertebral Arteries. B-Mode Ultrasound demonstrates mild intraluminal plaque in the bilateral common Carotid Arteries. Duplex evaluation demonstrates stenosis of the right proximal internal carotid artery in the range of 20-49% with PSV <140 cm/sec, EDV <100 cm/sec, and IC/CC Ratio <4.0. Duplex evaluation demonstrates stenosis of the left proximal internal carotid artery in the range of 50-69% with PSV =140 cm/sec, EDV <100 cm/sec, and IC/CC Ratio <4.0. Conclusion Duplex evaluation demonstrates antegrade flow of the bilateral Vertebral Arteries. B-Mode Ultrasound demonstrates mild intraluminal plaque in the bilateral common Carotid Arteries. Duplex evaluation demonstrates stenosis of the right proximal internal carotid artery in the range of 20-49% with PSV <140 cm/sec, EDV <100 cm/sec, and IC/CC Ratio <4.0. Duplex evaluation demonstrates stenosis of the left proximal internal carotid artery in the range of 50-69% with PSV =140 cm/sec, EDV <100 cm/sec, and IC/CC Ratio <4.0. Electronically signed by : Kvng Avila MD 04/13/2021 08:46:04
== END ==
PROVIDERS: PCP Family Medicine; Visit Provider Internal Medicine Cardiovascular Disease
DX: E78.2 Mixed hyperlipidemia (principal); F17.200 Nicotine dependence, unspecified, uncomplicated; I10 Essential (primary) hypertension; I25.10 Atherosclerotic heart disease of native coronary artery without angina pectoris; I65.23 Occlusion and stenosis of bilateral carotid arteries
CPT/HCPCS: 93880; 96523; J1642

== ENCOUNTER 2021-04-12 14:07 | Outpatient (CLI) | payer MEDICARE, SELFPAY | END 2021-04-12 14:15 | disposition home or self-care (01) | LOC: INF 14:07 | PROVIDERS: Visit Provider Internal Medicine Medical Oncology | DX: Z45.2 Encounter for adjustment and management of vascular access device (principal) | CPT/HCPCS: 96523; J1642 ==

== ENCOUNTER 2021-05-08 13:51 | Outpatient (CLI) | payer MEDICARE, SELFPAY | END 2021-05-08 14:07 | disposition home or self-care (01) | LOC: INF 13:51 | PROVIDERS: Visit Provider Internal Medicine Medical Oncology | DX: Z45.2 Encounter for adjustment and management of vascular access device (principal) | CPT/HCPCS: 96523; J1642 ==

== ENCOUNTER → 2021-06-17 09:45 | Outpatient (CLI) | payer MEDICARE, SELFPAY | PROVIDERS: PCP Family Medicine; Visit Provider Family Medicine | DX: Z20.822 Contact with and (suspected) exposure to COVID-19 (principal) | CPT/HCPCS: U0003 ==

== ENCOUNTER 2021-07-05 12:47 | Outpatient (CLI) | payer MEDICARE, SELFPAY | END 2021-07-05 13:00 | disposition home or self-care (01) | LOC: INF 12:48 | PROVIDERS: PCP Family Medicine; Visit Provider Internal Medicine Medical Oncology | DX: Z45.2 Encounter for adjustment and management of vascular access device (principal) | CPT/HCPCS: 96523; J1642 ==

== ENCOUNTER 2021-08-20 17:16 | Emergency (ER) | payer MEDICARE, SELFPAY ==
--- NOTE | 2021-08-20 17:20 | PC.NURSE ---
PATIENT IN WAITING ROOM, PURSED-LIP BREATHING AND INCREASED RESPIRATIONS NOTED AT THIS TIME. RR 30, PULSE OX 89%, PULSE 116. PATIENT SENT TO ER PER Rafael APONTE APRN AT THIS TIME. REPORT GIVEN TO Jax MCCLAIN RN
--- NOTE | 2021-08-20 17:59 | XR_ITS ---
PROCEDURE INFORMATION: Exam: XR Chest Exam date and time: 08/20/2021 5:59 PM Age: 71 years old Clinical indication: Cough and shortness of breath TECHNIQUE: Imaging protocol: XR of the chest. Views: 1 view. COMPARISON: CR XR CHEST AP 06/21/2019 8:48 PM FINDINGS: Tubes, catheters and devices: A left infusion port is present. Airway: Patent Lungs: COPD/emphysema is appreciated. No acute interstitial or airspace disease. Pleural spaces: Unremarkable. No pleural effusion. No pneumothorax. Heart/Mediastinum: Heart is of normal size and morphology. Vasculature: Calcified aortic knob. Bones/joints: Question of an old/healed right clavicular fracture versus artifact from positioning. No acute skeletal abnormality or aggressive osseous lesion. IMPRESSION: Negative for acute thoracic pathology.
[2021-08-20 18:00] VITALS: BP 126/90; PULSE 95; RESP 26; TEMP 36.4; O2SAT 90; BMI 28.0
--- NOTE | 2021-08-20 18:09 | ECG_ITS ---
APPROVED REPORT Exam: Resting ECG HR:92 bpm ECG Measurements Heart Rate 92 AXES WA 144 P 71 QRSd 80 QRS 261 QT 368 T 64 QTc 455 Conclusion Normal sinus rhythm Right superior axis deviation Pulmonary disease pattern Abnormal ECG Electronically signed by : Zaire Brannon MD 08/20/2021 21:12:44
[2021-08-20 18:14] LABS: Basophils % 0.3 % (0.1-2.0); Eosinophils # 0.3 K/mm3 (0.0-0.4); Eosinophils % 2.4 % (0.1-12.0); Hematocrit 46.9 % (42.0-52.0); Hemoglobin 15.6 g/dL (14.1-18.0); Lymphocytes # 2.7 K/mm3 (0.7-4.5); Lymphocytes % 25.1 % (10-50); Mean Corpuscular HGB Conc 33.2 g/dL (31.8-35.4); Mean Corpuscular Hemoglobin 32.6 pg (27.0-31.2); Monocytes # 0.4 K/mm3 (0.1-1.0); Monocytes % 4.1 % (1.7-9.3); Neutrophils # 7.2 K/mm3 (1.8-7.8); Neutrophils % 68.1 % (37.0-80.0); Platelet Count 287 K/mm3 (142-424); Red Blood Count 4.78 M/mm3 (4.60-6.20); Red Cell Distribution Width 13.3 % (11.5-17.5); White Blood Count 10.6 K/mm3 (4.8-10.8)
[2021-08-20 18:18] LABS: Alanine Aminotransferase 20 U/L (12-78); Albumin Level 4.2 g/dl (3.5-5.0); Albumin/Globulin Ratio 1.2 (1.1-1.8); Alkaline Phosphatase 93 U/L (38-126); Anion Gap 12.1 mEq/L (5-15); Aspartate Amino Transferase 29 U/L (17-59); Bilirubin,Total 0.5 mg/dl (0.2-1.3); Blood Urea Nitrogen 11 mg/dl (9-20); Calcium 9.7 mg/dl (8.4-10.2); Carbon Dioxide 26 mmol/L (22.0-30.0); Chloride 107 mmol/L (98-107); Creatinine Clearance Estimated 74 mL/min (50-200); Estimated Glomerular Filt Rate 66 ml/min (>60); GFR (African American) 80 ML/MIN (>60); Globulin 3.5 g/dL (1.3-3.2); Glucose 112 mg/dl (74-100); Potassium 4.1 mmoL/L (3.5-5.1); Sodium 141 mmol/L (136-145); Total Protein,Serum 7.7 g/dl (6.3-8.2)
[2021-08-20 18:19] LABS: Coronavirus 19, PCR Not Detected (NotDetected); Influenza A, PCR Not Detected (NotDetected); Influenza B, PCR Not Detected (NotDetected)
[2021-08-20 18:20] LABS: INR 0.96 (0.9-1.1); Prothrombin Time 10.9 seconds (10.1-12.5)
[2021-08-20 18:30] LABS: NT Pro Brain Natriuretic Pep. 123 pg/mL (0-125)
[2021-08-20 18:32] LABS: Troponin I < 0.01 ng/ml (0.00-0.034)
--- NOTE | 2021-08-20 18:47 | CT_ITS ---
PROCEDURE INFORMATION: Exam: CTA Chest With Contrast Exam date and time: 08/20/2021 6:47 PM Age: 71 years old Clinical indication: Shortness of breath; Additional info: Hypoxia, SOB TECHNIQUE: Imaging protocol: Computed tomographic angiography of the chest with contrast. 3D rendering (Not supervised by radiologist): MIP and/or 3D reconstructed images were created by the technologist. Radiation optimization: All CT scans at this facility use at least one of these dose optimization techniques: automated exposure control; mA and/or kV adjustment per patient size (includes targeted exams where dose is matched to clinical indication); or iterative reconstruction. Contrast material: ISOVUE 370; Contrast volume: 75 ml; Contrast route: INTRAVENOUS (IV); COMPARISON: CR XR CHEST PORTABLE 08/20/2021 6:09 PM FINDINGS: Pulmonary arteries: Normal. No pulmonary emboli. Aorta: The aorta demonstrates moderate atherosclerotic calcification. No acute pathology in the aorta. Thyroid: Enlarged and heterogeneous thyroid gland with punctate calcifications in the left thyroid lobe. Further evaluation with nonemergent thyroid ultrasound is recommended. Lungs: COPD related lung changes are appreciated. Linear scarring in the left upper lobe. Bilateral and diffuse segmental bronchial wall thickening. Multi segmental and subsegmental mucoid impaction in the right upper lobe, left lower lobe, and left upper lobe bronchi. No acute interstitial or airspace disease. Pleural spaces: Unremarkable. No pneumothorax. No pleural effusion. Heart: There is calcification of the aortic valve annulus. There is severe atherosclerotic calcification of the coronary arteries. Heart is of normal size and morphology. No pericardial thickening or effusion. Lymph nodes: Unremarkable. No enlarged lymph nodes. Gallbladder and bile ducts: Gallbladder sludge versus cholelithiasis. Kidneys and ureters: Bilateral renal cysts are partially visualized. Bones/joints: No acute skeletal pathology. Moderate multilevel degenerative changes of the spine, as manifested by multilevel anterior osteophytes and multilevel decrease in intervertebral disc space. Soft tissues: Unremarkable. Other findings: The visualized intra-abdominal structures demonstrate no acute findings. Remainder of the airways are patent. IMPRESSION: 1. COPD and acute versus chronic bronchitis with additional segmental and subsegmental diffuse bronchial mucoid impaction. 2. No significant acute interstitial or airspace pulmonary disease. 3. No pulmonary emboli. COMMENTS: Consistent with the [employer]'s Incidental Findings Committee white paper (J Am Bennie Radiol 2018): Any incidental renal lesion less than 1 cm or classified as too small to characterize, or any incidental cystic renal lesion characterized as simple-appearing, is likely benign. No follow-up imaging is recommended for these lesions per consensus recommendations based on imaging criteria.
[2021-08-20 19:04] LABS: ABG Base Excess -1.5 mmol/L (-2.4-2.3); ABG HCO3 22.7 mmhg (22.0-26.0); ABG Oxygen Saturation 92 % (90-100); ABG PCO2 34.3 mmhg (35.0-45.0); ABG PH 7.44 mmol/L (7.35-7.45); ABG TCO2 23.7 mmhg (23-27)
[2021-08-20 19:05] LABS: Allen's Test Acceptable; Oxygen room air %; Source Left Radial
--- NOTE | 2021-08-20 19:16 | HMH.EDGENADL ---
ED Disposition Clinical Impression: Acute exacerbation of chronic obstructive airways disease Disposition: Home, Self-Care Condition on Discharge: Good Instructions: DI for Chronic Obstructive Pulmonary Disease Prescriptions: Doxycycline Hyclate [Doxycycline Hyclate 100mg Tablet] 100 mg PO Q12 10 Days #20 tab Transmission Status: Pending to [facility] # methylPREDNISolone [Medrol 4mg tab] 4 mg PO DIRECTED #21 tab Transmission Status: Pending to [facility] # Referrals: Sree Deleon MD [Primary Care Provider] - - Critical Care Critical Care Time: No Attestation: On 08/20/21, the high probability of a clinically significant, sudden or life threatening deterioration of the following system(s) required my full and direct attention, intervention and personal management. The time I documented below is in addition to time spent performing reported procedures but includes the following listed in this critical care notation. Medical Decision Making - Medical Records Medical records reviewed: Yes: I reviewed the patient's medical records. - Artemio Inquiry Pt receiving controlled substance: No Vital Signs: 08/20/21 18:00 Temperature 97.6 F Temperature Source Oral Pulse Rate [Left Radial] 95 H Respiratory Rate 26 H Blood Pressure [Right Arm] 126/90 Blood Pressure Mean [Right Arm] 102 Blood Pressure Source [Right Arm] Automatic Cuff Blood Pressure Position [Right Arm] Sitting 02 Sat by Pulse Oximetry 90 L Oxygen Delivery Method Room Air - Lab Data Lab Results 08/20/21 17:33: WBC 10.6, RBC 4.78, Hgb 15.6, Hct 46.9, MCV 98.0 H, MCH 32.6 H, MCHC 33.2, RDW 13.3, Plt Count 287, MPV 8.0, Neut % (Auto) 68.1, Lymph % (Auto) 25.1, Hanson % (Auto) 4.1, Eos % (Auto) 2.4, Baso % (Auto) 0.3, Neut # (Auto) 7.2, Lymph # (Auto) 2.7, Hanson # (Auto) 0.4, Eos # (Auto) 0.3, Baso # (Auto) 0.0 08/20/21 17:33: PT 10.9, INR 0.96, APTT 27.0 08/20/21 17:33: Sodium 141, Potassium 4.1, Chloride 107, Carbon Dioxide 26, Anion Gap 12.1, BUN 11, Creatinine 1.10, Estimated Creat Clear 74, Estimated GFR 66, Est GFR ( Amer) 80, Glucose 112 H, Calcium 9.7, Total Bilirubin 0.5, AST 29, ALT 20, Alkaline Phosphatase 93, Troponin I < 0.01, NT-Pro-B Natriuret Pep 123, Total Protein 7.7, Albumin 4.2, Globulin 3.5 H, Albumin/Globulin Ratio 1.2 08/20/21 18:00: Specimen Source Left radial, O2 % room air, ABG pH 7.44, ABG pCO2 34.3 L, ABG pO2 61.0 L, ABG HCO3 22.7, ABG Total CO2 23.7, ABG O2 Saturation 92, ABG Base Excess -1.5, Larry Test Acceptable 08/20/21 18:10: SARS-CoV-2 (PCR) Not detected, Influenza A Untype (PCR) Not detected, Influenza Type B (PCR) Not detected Result diagrams: 08/20/21 17:33 08/20/21 17:33 Orders (Tests/Meds): ED MEDICATIONS Discontinued Medications Generic Name Dose Route Start Last Admin Trade Name Freq PRN Reason Stop Dose Admin Iopamidol 75 ml 08/20/21 19:25 08/20/21 19:26 Iopamidol-370 (76%);100ml Bottle IV 08/20/21 19:26 75 ml ONCE ONE Administration Sodium Chloride 50 ml 08/20/21 19:25 08/20/21 19:26 0.9 % Sodium Chloride 50 Ml Vial IV 08/20/21 19:26 50 ml ONCE ONE Administration Sodium Chloride 10 ml 08/20/21 19:25 08/20/21 19:26 Sodium Chloride 0.9% 10ml Syr (Rad Only) IV 08/20/21 19:26 10 ml ONCE ONE Administration ORDERS Category Date Time Status XR chest portable Stat Exams 08/20/21 17:59 Taken Troponin I Q3H Lab 08/20/21 21:00 Ordered Troponin I Q3H Lab 08/21/21 00:00 Ordered - CT Data CT Scan: Chest Time Received: 19:[address] Reviewed: Yes: I have reviewed the patient's CT results, I have viewed the radiologist's interpretation Findings Narrative: IMPRESSION: 1. COPD and acute versus chronic bronchitis with additional segmental and subsegmental diffuse bronchial mucoid impaction. 2. No significant acute interstitial or airspace pulmonary disease. 3. No pulmonary emboli. - ECG Data Jane
[2021-08-20 19:56] VITALS: BP 125/78; PULSE 71; RESP 18; TEMP 36.9; O2SAT 99
[2021-08-20 20:04] VITALS: BP 129/83; PULSE 68; RESP 14; TEMP 36.8; O2SAT 94
== END 2021-08-20 20:03 | disposition home or self-care (01) ==
LOC: UTC 17:22 → ER 17:26
PROVIDERS: Emergency Provider Emergency Medicine; PCP Family Medicine
DX: J44.1 Chronic obstructive pulmonary disease with (acute) exacerbation (principal); I25.10 Atherosclerotic heart disease of native coronary artery without angina pectoris; E78.5 Hyperlipidemia, unspecified; I10 Essential (primary) hypertension; I25.2 Old myocardial infarction; E03.9 Hypothyroidism, unspecified; F41.9 Anxiety disorder, unspecified; Z79.899 Other long term (current) drug therapy; F17.210 Nicotine dependence, cigarettes, uncomplicated; Z20.822 Contact with and (suspected) exposure to COVID-19
CPT/HCPCS: 71045; 71275; 80053; 82803; 83880; 84484; 85025; 85610; 85730; 93005; 96375; 99283; C9803; Q9967; U0003; U0005

== ENCOUNTER 2021-08-28 14:22 | Outpatient (CLI) | payer MEDICARE, SELFPAY | END 2021-08-28 14:40 | disposition home or self-care (01) | LOC: INF 14:23 | PROVIDERS: PCP Family Medicine; Visit Provider Internal Medicine Medical Oncology | DX: Z45.2 Encounter for adjustment and management of vascular access device (principal) | CPT/HCPCS: 96523; J1642 ==

== ENCOUNTER 2021-10-23 12:52 | Outpatient (CLI) | payer MEDICARE, SELFPAY | END 2021-10-23 13:15 | disposition home or self-care (01) | LOC: INF 12:53 | PROVIDERS: PCP Family Medicine; Visit Provider Internal Medicine Medical Oncology | DX: C19 Malignant neoplasm of rectosigmoid junction (principal); Z45.2 Encounter for adjustment and management of vascular access device | CPT/HCPCS: 96523; J1642 ==

== ENCOUNTER 2022-01-09 12:50 | Outpatient (CLI) | payer MEDICARE, SELFPAY | END 2022-01-09 13:10 | disposition home or self-care (01) | LOC: INF 12:51 | PROVIDERS: PCP Family Medicine; Visit Provider Internal Medicine Medical Oncology | DX: Z45.2 Encounter for adjustment and management of vascular access device (principal) | CPT/HCPCS: J1642 ==

== ENCOUNTER 2022-02-20 12:43 | Outpatient (CLI) | payer MEDICARE, SELFPAY | END 2022-02-20 13:00 | disposition home or self-care (01) | LOC: INF 12:44 | PROVIDERS: PCP Family Medicine; Visit Provider Internal Medicine Medical Oncology | DX: Z45.2 Encounter for adjustment and management of vascular access device (principal) | CPT/HCPCS: 96523; J1642 ==

== ENCOUNTER → 2022-03-11 12:42 | Outpatient (CLI) | payer MEDICARE, SELFPAY ==
--- NOTE | 2022-03-11 12:42 | CA_ITS ---
FINAL REPORT TECHNIQUE: Color Doppler, duplex Doppler and carranza scale sonography of the bilateral neck vasculature was performed. Velocities were measured in the carotid arteries. Stenosis evaluation based on velocity criteria. CLINICAL HISTORY: ROOSEVELT,HTN,CAD,HX SMOKING FINDINGS: The peak systolic velocity of the right common carotid artery is 88 cm/sec and internal carotid artery 110 cm/sec. The diastolic velocity in the internal carotid artery is 40 cm/sec. The ICA/CCA ratio is 1.4. Visually, a mild to moderate amount of plaque is seen. These findings are consistent with less than 50% stenosis. The external carotid artery is patent. The right vertebral artery is patent with antegrade flow. The peak systolic velocity of the left common carotid artery is 90 cm/sec and internal carotid artery 158 cm/sec. The diastolic velocity in the internal carotid artery is 46 cm/sec. The ICA/CCA ratio is 2.1. Visually, a mild to moderate amount of plaque is seen. These findings are consistent with less than 50% stenosis. The external carotid artery is patent. The left vertebral artery is patent with antegrade flow. IMPRESSION: Less than 50% carotid stenosis bilaterally. Bilateral patent vertebral arteries. If indicated, CTA or MRA could further evaluate. Reviewed, Interpreted and Dictated by Kyle Ceballos III, MD Transcribed by Solange Kay Authenticated by Kyle Ceballos III, MD on 03/11/2022 03:00:08 PM [facility]
== END ==
PROVIDERS: PCP Family Medicine; Visit Provider Physician Assistant
DX: E78.5 Hyperlipidemia, unspecified (principal); F17.200 Nicotine dependence, unspecified, uncomplicated; I10 Essential (primary) hypertension; I25.10 Atherosclerotic heart disease of native coronary artery without angina pectoris; R09.89 Other specified symptoms and signs involving the circulatory and respiratory systems; I65.23 Occlusion and stenosis of bilateral carotid arteries
CPT/HCPCS: 93880

== ENCOUNTER → 2022-03-21 11:02 | Outpatient (CLI) | payer MEDICARE, SELFPAY ==
[2022-03-21 11:45] LABS: Blood Urea Nitrogen 18 mg/dl (9-20); Estimated Glomerular Filt Rate 60 ml/min (>60); GFR (African American) 72 ML/MIN (>60)
== END ==
PROVIDERS: Visit Provider Internal Medicine
DX: Z01.812 Encounter for preprocedural laboratory examination (principal)
CPT/HCPCS: 36415; 82565; 84520

== ENCOUNTER → 2022-03-22 12:31 | Outpatient (CLI) | payer MEDICARE, SELFPAY ==
--- NOTE | 2022-03-22 12:31 | CT_ITS ---
FINAL REPORT TECHNIQUE: Thin section axial CT with IV contrast supplemented with multiplanar reconstruction under CT angiogram protocol. This study was performed with techniques to keep radiation doses as low as reasonably achievable (ALARA). Individualized dose reduction techniques using automated exposure control or adjustment of mA and/or kV according to the patient''s size were employed. NASCET criteria was utilized during interpretation. CLINICAL HISTORY: adryan FINDINGS: Aortic arch: Arch shows no significant narrowing. Great vessel origins are widely patent. There is normal 3 vessel configuration. Right carotid: The right common carotid artery is patent without stenosis. There is dense calcification at the carotid bulb with 60-70% stenosis. The more distal portions of the right internal carotid artery are patent. Left carotid: The left common carotid artery is patent without stenosis. There is dense calcification at the carotid bulb with 50-60% stenosis. The more distal portions of the left internal carotid artery are patent without stenosis. Vertebral: The vertebral arteries are patent. Left vertebral artery is dominant. No significant stenosis is present. Other: There is a left upper lobe pulmonary nodule measuring 8 mm well seen on series 3, image 3. The thyroid is enlarged and extends substernally. There is no evidence of lymphadenopathy. IMPRESSION: Bilateral internal carotid artery stenosis, right greater than left. Left upper lobe pulmonary nodule. Recommend 3 month follow-up CT. Reviewed, Interpreted and Dictated by Karolina Cuevas MD Transcribed by Saundra Davis Authenticated by Karolina Cuevas MD on 03/22/2022 03:40:55 PM [facility]
== END ==
PROVIDERS: PCP Family Medicine; Visit Provider Nurse Practitioner Family
DX: E78.5 Hyperlipidemia, unspecified (principal); F17.200 Nicotine dependence, unspecified, uncomplicated; I10 Essential (primary) hypertension; I25.10 Atherosclerotic heart disease of native coronary artery without angina pectoris; I65.23 Occlusion and stenosis of bilateral carotid arteries
CPT/HCPCS: 70498; Q9967

== ENCOUNTER 2022-04-25 11:20 | Outpatient (CLI) | payer MEDICARE, SELFPAY | END 2022-04-25 11:30 | disposition home or self-care (01) | LOC: INF 11:20 | PROVIDERS: PCP Family Medicine; Visit Provider Internal Medicine Medical Oncology | DX: Z45.2 Encounter for adjustment and management of vascular access device (principal) | CPT/HCPCS: 96523; J1642 ==

== ENCOUNTER → 2022-07-09 13:48 | Outpatient (CLI) | payer MEDICARE, SELFPAY ==
[2022-07-11 09:22] LABS: PSA, Free 2.07 ng/mL; Prostate Specific Ag 6.8 ng/mL (0.0-4.0)
== END ==
PROVIDERS: PCP Family Medicine; Visit Provider Urology
DX: R97.20 Elevated prostate specific antigen [PSA] (principal)
CPT/HCPCS: 36415; 84153; 84154

== ENCOUNTER 2022-07-17 09:51 | Outpatient (CLI) | payer MEDICARE, SELFPAY | END 2022-07-17 10:15 | disposition home or self-care (01) | LOC: INF 09:52 | PROVIDERS: PCP Family Medicine; Visit Provider Internal Medicine Medical Oncology | DX: Z45.2 Encounter for adjustment and management of vascular access device (principal) | CPT/HCPCS: 96523; J1642 ==

== ENCOUNTER → 2022-08-07 11:07 | Outpatient (CLI) | payer MEDICARE, SELFPAY | PROVIDERS: PCP Family Medicine; Visit Provider Nurse Practitioner Family | DX: F17.200 Nicotine dependence, unspecified, uncomplicated (principal); G47.33 Obstructive sleep apnea (adult) (pediatric); G47.34 Idiopathic sleep related nonobstructive alveolar hypoventilation; J44.9 Chronic obstructive pulmonary disease, unspecified; R06.00 Dyspnea, unspecified | CPT/HCPCS: 94762 ==

== ENCOUNTER 2022-08-28 09:55 | Outpatient (CLI) | payer MEDICARE, SELFPAY | END 2022-08-28 10:15 | disposition home or self-care (01) | LOC: INF 09:57 | PROVIDERS: PCP Family Medicine; Visit Provider Internal Medicine Medical Oncology | DX: Z45.2 Encounter for adjustment and management of vascular access device (principal) | CPT/HCPCS: 96523; J1642 ==

== ENCOUNTER 2022-09-12 08:00 | Emergency (ER) | payer MEDICARE, SELFPAY ==
[2022-09-12] VITALS (7 sets, daily range): BP systolic 105–145; BP diastolic 68–98; PULSE 73–95; RESP 16–20; TEMP 36.6–36.9; O2SAT 92–95; BMI 23.1
--- NOTE | 2022-09-12 07:59 | ECG_ITS ---
APPROVED REPORT Exam: Resting ECG HR:87 bpm ECG Measurements Heart Rate 87 AXES FL 145 P 81 QRSd 89 QRS 116 QT 366 T 80 QTc 410 Conclusion SINUS RHYTHM INDETERMINATE AXIS LEFT POSTERIOR FASCICULAR BLOCK [QRS AXIS > 109, INFERIOR Q] ABNORMAL ECG UNCONFIRMED REPORT Electronically signed by : Zaire Brannon MD 09/12/2022 21:15:22
--- NOTE | 2022-09-12 08:06 | XR_ITS ---
FINAL REPORT CLINICAL HISTORY: chest pain COMPARISON: 08/20/2021 FINDINGS: PORTABLE CHEST There is mild cardiomegaly. The mediastinum is unremarkable. There is some linear density at the lung bases which is probably due to scarring There is no pneumothorax. IMPRESSION: No acute process. Reviewed, Interpreted and Dictated by Wallace Dickerson MD Transcribed by Sophie Ayala Authenticated and [facility]
--- NOTE | 2022-09-12 08:09 | PC.NURSE ---
Called radiology for xray.
--- NOTE | 2022-09-12 08:18 | HMH.EDCP ---
Discharge Plan Disposition Patient Disposition: Home, Self-Care Condition: Fair Prescriptions Prescriptions: New prednisone 50 mg tablet 50 mg PO DAILY 5 Days Qty: 5 0RF doxycycline hyclate 100 mg tablet 100 mg PO BID 5 Days Qty: 10 0RF amoxicillin-pot clavulanate 875-125 mg tablet 1 tab PO BID 5 Days Qty: 10 0RF No Action atorvastatin 40 mg tablet 40 mg PO HS niacin 250 mg tablet 250 mg PO HS levothyroxine 112 mcg capsule 125 mcg PO DAILY metoprolol tartrate 25 mg tablet 12.5 mg PO BID meloxicam 15 mg tablet 15 mg PO DAILY albuterol sulfate 90 mcg/actuation HFA aerosol inhaler 1 inh INHALATION Q6H PRN (Reason: soa) omeprazole 40 mg capsule,delayed release(DR/EC) 40 mg PO DAILY losartan 50 mg tablet 100 mg PO DAILY ascorbic acid (vitamin C) 1,000 mg capsule 1 g PO DAILY Stiolto Respimat 2.5-2.5 mcg/actuation mist 2 puff inhalation ONCE PRN cholecalciferol (vitamin D3) 5,000 UNIT capsule 5,000 unit PO DAILY cyanocobalamin (vitamin B-12) 1,000 MCG capsule 1,000 mcg PO DAILY aspirin 81 MG tablet,chewable 81 mg PO HS acetaminophen 500 MG tablet 1 tab PO Q4HP PRN (Reason: pain) Referrals Follow up/Referrals: Kyle Rose MD [Staff Physician] - See instructions (symptomatic cholelithiasis) Clinical Impressions Clinical Impression: Pneumonia Instructions Patient Instructions: DI for Pneumonia -- Adult Discharge ED Provider: Ilya Rankin Chest Pain HPI General Chief Complaint: Chest Pain Stated Complaint: chest pain Time Seen by Provider: 09/12/22 08:00 Mode of Arrival: Ambulatory Source of Information: Patient Limitations: No Limitations Description of Symptoms (Recalled from ER Triage Doc. by RN): pt states he has had chest pain since yesterday afternoon that has been intermittent, explains it as a pressure in the center of his chest, also states he has SOB, states he had a knot pop up yesterday in his upper abdominal region, denies any other symptoms, states he recently had covid History of Present Illness HPI narrative: Patient is a 72-year-old male with a past medical history of hyperlipidemia, hypertension, CAD, colorectal cancer, COPD on nighttime CPAP who presents with chest and upper abdominal pain. He locates it around his xiphoid as well as just under his right rib. He also describes a pressure throughout the anterior aspect of his lower chest and upper abdomen. He says he has been a little bit more short of breath than normal during this time. Says that the pain is intermittent. He says he felt like a knot popped yesterday . He denies any fever or chills. Denies any changes to his sputum production. Does say that his pain is a little worse with deep inspiration. He has not taken anything for the pain. He says that his appetite is little bit less than normal. The pain is not worse when he eats. Related Data Home Medications Medication Instructions Recorded Confirmed atorvastatin 40 mg tablet 40 mg PO HS Cholesterol 11/05/17 07/09/22 niacin 250 mg tablet 250 mg PO HS Cholesterol 11/05/17 07/09/22 cholecalciferol (vitamin D3) 125 5,000 unit PO DAILY Supplement 12/10/17 07/09/22 mcg (5,000 unit) capsule cyanocobalamin (vitamin B-12) 1,000 mcg PO DAILY Supplement 12/10/17 07/09/22 1,000 mcg capsule meloxicam 15 mg tablet 15 mg PO DAILY INFLAMMATION 05/17/19 07/09/22 acetaminophen 500 mg tablet 1 tab PO Q4HP PRN pain 06/22/19 07/09/22 aspirin 81 mg chewable tablet 81 mg PO HS HEART HEALTH 06/22/19 07/09/22 albuterol sulfate 90 mcg/actuation 1 inh inhalation Q6H PRN soa 03/29/21 07/09/22 aerosol inhaler omeprazole 40 mg capsule,delayed 40 mg PO DAILY GERD 03/29/21 07/09/22 release metoprolol tartrate 25 mg tablet 12.5 mg PO BID blood pressure 03/28/22 07/09/22 ascorbic acid (vitamin C) 1,000 mg 1 g PO DAILY 06/26/22 07/09/22 capsule levothyroxine 112 mcg capsule
[2022-09-12 08:26] LABS: Basophils % 0.6 % (0.1-2.0); Eosinophils % 0.2 % (0.1-12.0); Hematocrit 49.8 % (42.0-52.0); Hemoglobin 16.8 g/dL (14.1-18.0); Lymphocytes # 1.3 K/mm3 (0.7-4.5); Mean Corpuscular HGB Conc 33.7 g/dL (31.8-35.4); Mean Corpuscular Hemoglobin 32.3 pg (27.0-31.2); Mean Corpuscular Volume 95.9 fl (80-94); Mean Platelet Volume 8.6 fl (7.4-10.4); Monocytes # 0.5 K/mm3 (0.1-1.0); Monocytes % 6.6 % (1.7-9.3); Neutrophils # 5.5 K/mm3 (1.8-7.8); Neutrophils % 74.6 % (37.0-80.0); Platelet Count 209 K/mm3 (142-424); Red Blood Count 5.19 M/mm3 (4.60-6.20); Red Cell Distribution Width 13.7 % (11.5-17.5); White Blood Count 7.4 K/mm3 (4.8-10.8)
[2022-09-12 08:35] LABS: Alanine Aminotransferase 28 U/L (12-78); Albumin Level 4.8 g/dl (3.5-5.0); Albumin/Globulin Ratio 1.4 (1.1-1.8); Alkaline Phosphatase 191 U/L (38-126); Aspartate Amino Transferase 36 U/L (17-59); Bilirubin,Total 0.9 mg/dl (0.2-1.3); Blood Urea Nitrogen 15 mg/dl (9-20); Calcium 9.9 mg/dl (8.4-10.2); Carbon Dioxide 28 mmol/L (22.0-30.0); Chloride 102 mmol/L (98-107); Creatinine Clearance Estimated 58 mL/min (50-200); Estimated Glomerular Filt Rate 54 ml/min (>60); GFR (African American) 65 ML/MIN (>60); Globulin 3.5 g/dL (1.3-3.2); Glucose 100 mg/dl (74-100); Lipase 137 U/L (23-300); Sodium 144 mmol/L (136-145); Total Protein,Serum 8.3 g/dl (6.3-8.2)
[2022-09-12 08:40] LABS: D-Dimer 0.67 ug/mL (0.0-0.5)
[2022-09-12 08:41] LABS: C-Reactive Protein 12.3 mg/L (0-4)
--- NOTE | 2022-09-12 08:49 | CT_ITS ---
FINAL REPORT TECHNIQUE: Thin section axial CT images were obtained from the lung apices to the upper abdomen. IV contrast was administered. MIP 3-D reformats were obtained. This study was performed with techniques to keep radiation doses as low as reasonably achievable (ALARA). Individualized dose reduction techniques using automated exposure control or adjustment of mA and/or kV according to the patient's size were employed. CLINICAL HISTORY: chest pain; elevated d-dimer; h/o cancer COMPARISON: July 2020 FINDINGS: There is mild diffuse enlargement of the thyroid. The heart size is normal. There is no adenopathy. There is no filling defect to suggest PE. There is no aortic dissection. There is no pericardial effusion. There is patchy airspace opacity in the left lung base probably due to acute pneumonia. No pleural effusion. IMPRESSION: No pulmonary embolism or aortic dissection. Patchy left lung base opacity probably due to acute pneumonia. Reviewed, Interpreted and Dictated by Wallace Dickerson MD Transcribed by Fernando Carr Authenticated and [facility]
[2022-09-12 08:50] LABS: NT Pro Brain Natriuretic Pep. 200 pg/mL (0-125)
--- NOTE | 2022-09-12 08:50 | CT_ITS ---
FINAL REPORT TECHNIQUE: After the administration of oral and intravenous contrast, axial images were obtained through the abdomen and pelvis by computed tomography. The study was performed with techniques to keep radiation dose as low as reasonably achievable, (ALARA). Individual dose reduction techniques using automated exposure control or adjustment of mA and/or kV according to the patient's size were employed. CLINICAL HISTORY: RUQ pain FINDINGS: Abdomen: The liver parenchyma is homogeneous. There are gallstones in the dependent portion of the gallbladder. The spleen, pancreas, and adrenals appear unremarkable. There are benign-appearing cysts in both kidneys. Cysts measure up to 2.4 cm in greatest dimensions. The aorta is normal in caliber. There is no free fluid or adenopathy. Pelvis: There is retained contrast throughout the colon. The appendix is not identified. The urinary bladder is unremarkable. There is no free fluid or adenopathy. The prostate is moderately enlarged measuring up to 6.3 x 4.6 cm. IMPRESSION: Cholelithiasis. Retained contrast in the colon. Moderate prostate enlargement. Reviewed, Interpreted and Dictated by Wallace Dickerson MD Transcribed by Fernando Carr Authenticated and [facility]
[2022-09-12 09:01] LABS: Troponin I < 0.01 ng/ml (0.00-0.034)
--- NOTE | 2022-09-12 09:14 | PC.NURSE ---
Pt returned from radiology.
--- NOTE | 2022-09-12 09:53 | PC.NURSE ---
Updated pt. at bedside. No questions or concerns voiced at this time.
--- NOTE | 2022-09-12 10:20 | PC.NURSE ---
checked on pt at this time, updated pt we are waiting on CT scan reads. Call light within reach
--- NOTE | 2022-09-12 10:21 | PC.NURSE ---
Provided pt with warm blanket.
--- NOTE | 2022-09-12 10:38 | PC.NURSE ---
NELIA PABLO at bedside.
== END 2022-09-12 11:05 | disposition home or self-care (01) ==
PROVIDERS: Emergency Provider Student in an Organized Health Care Education/Training Program; PCP Family Medicine
DX: J18.9 Pneumonia, unspecified organism (principal); Z79.82 Long term (current) use of aspirin; Z79.899 Other long term (current) drug therapy; Z85.038 Personal history of other malignant neoplasm of large intestine; Z72.0 Tobacco use; E78.5 Hyperlipidemia, unspecified; I10 Essential (primary) hypertension; I25.10 Atherosclerotic heart disease of native coronary artery without angina pectoris; J44.9 Chronic obstructive pulmonary disease, unspecified; I65.29 Occlusion and stenosis of unspecified carotid artery; R06.02 Shortness of breath; Z80.9 Family history of malignant neoplasm, unspecified; Z83.3 Family history of diabetes mellitus; Z82.49 Family history of ischemic heart disease and other diseases of the circulatory system; Z83.438 Family history of other disorder of lipoprotein metabolism and other lipidemia
CPT/HCPCS: 71045; 71275; 74177; 80053; 83690; 83880; 84484; 85025; 85378; 86140; 93005; 94640; 96374; 99285; Q9967

== ENCOUNTER 2022-10-05 10:37 | Emergency (ER) | payer MEDICARE, SELFPAY ==
[2022-10-05 11:10] VITALS: BP 155/77; PULSE 64; RESP 22; TEMP 36.6; O2SAT 95; BMI 29.3
--- NOTE | 2022-10-05 11:22 | XR_ITS ---
PROCEDURE INFORMATION: Exam: XR Chest Exam date and time: 10/05/2022 11:19 AM Age: 72 years old Clinical indication: Cough; Additional info: Congestion TECHNIQUE: Imaging protocol: Radiologic exam of the chest. Views: 2 views. COMPARISON: CR XR CHEST PORTABLE 09/12/2022 8:24 AM FINDINGS: Tubes, catheters and devices: Port catheter in the SVC. Lungs: Suture line stable in the left mid lung zone. Pleural spaces: Unremarkable. No pleural effusion. No pneumothorax. Heart/Mediastinum: Unremarkable. No cardiomegaly. Bones/joints: Unremarkable. IMPRESSION: No acute findings.
--- NOTE | 2022-10-05 11:44 | EXP.UTC ---
Discharge Plan Disposition Patient Disposition: Home, Self-Care Condition: Good Prescriptions Prescriptions: New benzonatate 100 mg capsule 100 mg PO BID PRN (Reason: cough) Qty: 14 0RF No Action atorvastatin 40 mg tablet 40 mg PO HS niacin 250 mg tablet 250 mg PO HS levothyroxine 112 mcg capsule 125 mcg PO DAILY metoprolol tartrate 25 mg tablet 12.5 mg PO BID meloxicam 15 mg tablet 15 mg PO DAILY albuterol sulfate 90 mcg/actuation HFA aerosol inhaler 1 inh INHALATION Q6H PRN (Reason: soa) omeprazole 40 mg capsule,delayed release(DR/EC) 40 mg PO DAILY losartan 50 mg tablet 100 mg PO DAILY ascorbic acid (vitamin C) 1,000 mg capsule 1 g PO DAILY Stiolto Respimat 2.5-2.5 mcg/actuation mist 2 puff inhalation ONCE PRN cholecalciferol (vitamin D3) 5,000 UNIT capsule 5,000 unit PO DAILY cyanocobalamin (vitamin B-12) 1,000 MCG capsule 1,000 mcg PO DAILY aspirin 81 MG tablet,chewable 81 mg PO HS acetaminophen 500 MG tablet 1 tab PO Q4HP PRN (Reason: pain) prednisone 50 mg tablet 50 mg PO DAILY 5 Days Qty: 5 0RF doxycycline hyclate 100 mg tablet 100 mg PO BID 5 Days Qty: 10 0RF amoxicillin-pot clavulanate 875-125 mg tablet 1 tab PO BID 5 Days Qty: 10 0RF Referrals Follow up/Referrals: Sree Deleon MD [Primary Care Provider] - See instructions Activity Restrictions/Add. Instructions Additional Instructions/Restrictions: if symptoms worsen or do not improve go to ed for eval Clinical Impressions Clinical Impression: Cough Instructions Patient Instructions: Cough Discharge ED Provider: Elia ([facility])Mari[facility] [place] H[place] General Stated complaint: congestion pressure, pain in back, no accident Mode of Arrival: Ambulatory Source of Information: Patient Limitations: No Limitations Time Seen by Provider: 10/05/22 11:44 Description of Symptoms (Recalled from Triage Doc. by RN): PATIENT C/O CHEST CONGESTION AND COUGH IN MORNING X 3-4 DAYS. HE REPORTS HE WAS RECENTLY TREATED FOR PNEUMONIA AND WAS BETTER, BUT SYMPTOMS RETURNED HEENT Symptoms (Recalled from RN notes): No Resp Symptoms (Recalled from RN notes): Yes Skin Symptoms (Recalled from RN notes): No MS Symptoms (Recalled from RN notes): No Functional Status (Recalled from RN notes): WNL History of Present Illness Provider Complaint: 72 yr old male presents for cough in the mornings,chest congestion, pain with deep breathing. pt states he was seen in ed 3 weeks ago and was treated for pneumonia states he improved but over the last 3-4 days symptoms have returned Related Data Home Medications Medication Instructions Recorded Confirmed atorvastatin 40 mg tablet 40 mg PO HS Cholesterol 11/05/17 07/09/22 niacin 250 mg tablet 250 mg PO HS Cholesterol 11/05/17 07/09/22 cholecalciferol (vitamin D3) 125 5,000 unit PO DAILY Supplement 12/10/17 07/09/22 mcg (5,000 unit) capsule cyanocobalamin (vitamin B-12) 1,000 mcg PO DAILY Supplement 12/10/17 07/09/22 1,000 mcg capsule meloxicam 15 mg tablet 15 mg PO DAILY INFLAMMATION 05/17/19 07/09/22 acetaminophen 500 mg tablet 1 tab PO Q4HP PRN pain 06/22/19 07/09/22 aspirin 81 mg chewable tablet 81 mg PO HS HEART HEALTH 06/22/19 07/09/22 albuterol sulfate 90 mcg/actuation 1 inh inhalation Q6H PRN soa 03/29/21 07/09/22 aerosol inhaler omeprazole 40 mg capsule,delayed 40 mg PO DAILY GERD 03/29/21 07/09/22 release metoprolol tartrate 25 mg tablet 12.5 mg PO BID blood pressure 03/28/22 07/09/22 ascorbic acid (vitamin C) 1,000 mg 1 g PO DAILY 06/26/22 07/09/22 capsule levothyroxine 112 mcg capsule 125 mcg PO DAILY thyroid 06/26/22 07/09/22 losartan 50 mg tablet 100 mg PO DAILY 06/26/22 07/09/22 tiotropium 2.5 mcg-olodaterol 2.5 2 puff inhalation ONCE PRN 06/26/22 07/09/22 mcg/actuation mist for inhalation (Stiolto Respimat) Previous Rx's Medication Instructions Recorded amoxicillin 8
[2022-10-05 12:03] VITALS: BP 155/77; PULSE 64; RESP 22; TEMP 36.6; O2SAT 95
== END 2022-10-05 12:08 | disposition home or self-care (01) ==
PROVIDERS: Emergency Provider Nurse Practitioner Family; PCP Family Medicine
DX: R05.9 Cough, unspecified (principal); Z87.01 Personal history of pneumonia (recurrent)
CPT/HCPCS: 71046; 99212; G0463

== ENCOUNTER → 2022-10-16 14:15 | Outpatient (CLI) | payer MEDICARE, SELFPAY | PROVIDERS: PCP Family Medicine; Visit Provider Nurse Practitioner Family | DX: G47.33 Obstructive sleep apnea (adult) (pediatric) (principal); G47.34 Idiopathic sleep related nonobstructive alveolar hypoventilation | CPT/HCPCS: 94762 ==

== ENCOUNTER → 2022-10-23 12:30 | Outpatient (CLI) | payer MEDICARE, SELFPAY | PROVIDERS: PCP Family Medicine; Visit Provider Internal Medicine Medical Oncology | DX: Z45.2 Encounter for adjustment and management of vascular access device (principal) | CPT/HCPCS: 96523; J1642 ==

== ENCOUNTER 2022-12-04 08:57 | Outpatient (CLI) | payer MEDICARE, SELFPAY | END 2022-12-04 09:05 | disposition home or self-care (01) | LOC: INF 08:58 | PROVIDERS: PCP Family Medicine; Visit Provider Internal Medicine Medical Oncology | DX: Z45.2 Encounter for adjustment and management of vascular access device (principal) | CPT/HCPCS: 96523; J1642 ==

== ENCOUNTER 2023-01-16 12:40 | Outpatient (CLI) | payer MEDICARE, SELFPAY | END 2023-01-16 12:55 | disposition home or self-care (01) | PROVIDERS: PCP Family Medicine; Visit Provider Family Medicine | DX: Z45.2 Encounter for adjustment and management of vascular access device (principal) | CPT/HCPCS: 96523; J1642 ==

== ENCOUNTER 2023-02-26 10:34 | Outpatient (CLI) | payer MEDICARE, SELFPAY | END 2023-02-26 10:48 | disposition home or self-care (01) | LOC: INF 10:35 | PROVIDERS: PCP Family Medicine; Visit Provider Family Medicine | DX: Z45.2 Encounter for adjustment and management of vascular access device (principal) | CPT/HCPCS: 96523; J1642 ==

== ENCOUNTER 2023-04-07 11:46 | Outpatient (CLI) | payer MEDICARE, SELFPAY ==
[2023-04-07 11:50] VITALS: BMI 27.9
[2023-04-07 12:34] LABS: Chloride 105 mmol/L (98-107)
[2023-04-07 12:35] LABS: Basophils % 0.2 % (0.1-2.0); Eosinophils # 0.4 K/mm3 (0.0-0.4); Eosinophils % 3.4 % (0.1-12.0); Hematocrit 46.9 % (42.0-52.0); Hemoglobin 14.9 g/dL (14.1-18.0); Lymphocytes # 2.4 K/mm3 (0.7-4.5); Lymphocytes % 21.4 % (10-50); Mean Corpuscular HGB Conc 31.9 g/dL (31.8-35.4); Mean Corpuscular Hemoglobin 30.5 pg (27.0-31.2); Mean Corpuscular Volume 95.5 fl (80-94); Monocytes # 0.6 K/mm3 (0.1-1.0); Monocytes % 4.9 % (1.7-9.3); Neutrophils # 7.8 K/mm3 (1.8-7.8); Neutrophils % 70.1 % (37.0-80.0); Platelet Count 249 K/mm3 (142-424); Potassium 4.1 mmoL/L (3.5-5.1); Red Blood Count 4.91 M/mm3 (4.60-6.20); Red Cell Distribution Width 13.5 % (11.5-17.5); Sodium 139 mmol/L (136-145); White Blood Count 11.2 K/mm3 (4.8-10.8)
[2023-04-07 12:37] LABS: Alanine Aminotransferase 38 U/L (12-78); Albumin Level 3.9 g/dl (3.5-5.0); Albumin/Globulin Ratio 1.4 (1.1-1.8); Alkaline Phosphatase 83 U/L (38-126); Anion Gap 11.1 mEq/L (5-15); Aspartate Amino Transferase 30 U/L (17-59); Bilirubin,Total 0.6 mg/dl (0.2-1.3); Blood Urea Nitrogen 18 mg/dl (9-20); Carbon Dioxide 27 mmol/L (22.0-30.0); Creatinine Clearance Estimated 56 mL/min (50-200); Estimated Glomerular Filt Rate 54 ml/min (>60); GFR (African American) 65 ML/MIN (>60); Globulin 2.8 g/dL (1.3-3.2); Total Protein,Serum 6.7 g/dl (6.3-8.2)
[2023-04-07 12:38] LABS: Chol/HDL Ratio 3.9 (1-3.5); Cholesterol 122 mg/dl (140-200); Glucose 86 mg/dl (74-100); HDL Cholesterol 31 mg/dl (40-60); Triglycerides 150 mg/dl (30-150); VLDL Cholesterol 30 mg/dL (0-40)
[2023-04-07 12:49] LABS: Direct LDL Cholesterol 58.18 mg/dL (100-129)
[2023-04-07 13:08] LABS: Thyroid Stimulating Hormone 1.85 uIU/mL (0.465-4.68)
[2023-04-07 13:45] LABS: Hemoglobin A1C 5.8 % (4.0-6.0)
== END 2023-04-07 12:15 | disposition home or self-care (01) ==
PROVIDERS: PCP Family Medicine; Visit Provider Family Medicine
DX: E03.9 Hypothyroidism, unspecified (principal); I10 Essential (primary) hypertension; E78.5 Hyperlipidemia, unspecified; Z45.2 Encounter for adjustment and management of vascular access device; Z79.899 Other long term (current) drug therapy; I25.10 Atherosclerotic heart disease of native coronary artery without angina pectoris
CPT/HCPCS: 36591; 80053; 80061; 83036; 84443; 85025; J1642

== ENCOUNTER → 2023-04-28 12:29 | Outpatient (CLI) | payer MEDICARE, SELFPAY ==
--- NOTE | 2023-04-28 12:29 | CT_ITS ---
FINAL REPORT TECHNIQUE: Thin section axial CT with IV contrast supplemented with multiplanar reconstruction under CT angiogram protocol. This study was performed with techniques to keep radiation doses as low as reasonably achievable (ALARA). Individualized dose reduction techniques using automated exposure control or adjustment of mA and/or kV according to the patient''s size were employed. NASCET criteria was utilized during interpretation. CLINICAL HISTORY: adryan/dizziness COMPARISON: 03/22/2022 FINDINGS: Aortic arch: Arch shows no significant narrowing. Great vessel origins are widely patent. Calcification at the carotid bulbs bilaterally makes evaluation difficult. Right carotid: There is approximately 50% stenosis at the carotid bulb. No significant stenosis is seen of the cervical common or internal carotid artery. Left carotid: Approximately 50% stenosis at the carotid bulb. No significant stenosis is seen of the cervical common or internal carotid artery. Vertebral: Left vertebral artery is dominant. No significant stenosis is present. IMPRESSION: Approximately 50% stenosis at the carotid bulbs bilaterally. Reviewed, Interpreted and Dictated by Kyle Ceballos III, MD Transcribed by Deanna Blevins Authenticated and [facility]
== END ==
PROVIDERS: PCP Family Medicine; Visit Provider Physician Assistant
DX: I65.23 Occlusion and stenosis of bilateral carotid arteries (principal); R42 Dizziness and giddiness
CPT/HCPCS: 70498; Q9967

== ENCOUNTER 2023-05-19 11:40 | Outpatient (CLI) | payer MEDICARE, SELFPAY | END 2023-05-19 11:59 | disposition home or self-care (01) | LOC: INF 11:41 | PROVIDERS: PCP Family Medicine; Visit Provider Family Medicine | DX: Z45.2 Encounter for adjustment and management of vascular access device (principal) | CPT/HCPCS: 96523; J1642 ==

== ENCOUNTER 2023-07-09 12:14 | Outpatient (CLI) | payer MEDICARE, SELFPAY | END 2023-07-09 12:20 | disposition home or self-care (01) | LOC: INF 12:15 | PROVIDERS: PCP Family Medicine; Visit Provider Family Medicine | DX: Z45.2 Encounter for adjustment and management of vascular access device (principal) | CPT/HCPCS: 96523; J1642 ==

== ENCOUNTER 2023-08-28 12:25 | Outpatient (CLI) | payer MEDICARE, SELFPAY | END 2023-08-28 12:51 | disposition home or self-care (01) | LOC: INF 12:26 | PROVIDERS: PCP Family Medicine; Visit Provider Family Medicine | DX: Z45.2 Encounter for adjustment and management of vascular access device (principal) | CPT/HCPCS: 96523; J1642 ==

== ENCOUNTER → 2023-10-02 14:15 | Outpatient (CLI) | payer MEDICARE, SELFPAY ==
--- NOTE | 2023-10-02 14:15 | CT_ITS ---
FINAL REPORT TECHNIQUE: Axial images were obtained from the lung apex to the mid abdomen by computed tomography. This study was performed with techniques to keep radiation doses as low as reasonably achievable (ALARA). Individualized dose reduction techniques using automated exposure control or adjustment of mA and/or kV according to the patient's size were employed. CLINICAL HISTORY: lung cancer screening smoker 1 ppd x 50 years COMPARISON: 09/12/2022 FINDINGS: CHEST CT LOW DOSE CTDI vol (mGy): 2.90 DLP (mGy-cm): 115.16 There is no axillary adenopathy. There are small mediastinal nodes. Left subclavian deep line is present. There is moderate to severe coronary artery calcification. The heart is normal in size. There is no pericardial or pleural effusion. There is a posterior left upper lobe nodule measuring 6 mm, previously measured 6 mm well seen on image 37. There has been interval resolution in the left lung base opacities consistent with improved pneumonia. No new mass or nodule is identified. There is diffuse bronchial wall thickening consistent with bronchitis. Limited images of the upper abdomen demonstrates probable gallstones. There are presumed bilateral renal cysts, stable. IMPRESSION: Posterior left upper lobe nodule. Lung RADS category 2. Recommend 12 month follow-up low-dose chest CT. Reviewed, Interpreted and Dictated by Kyle Ceballos III, MD Transcribed by Saundra Davis Authenticated and [facility]
[2023-10-02 15:30] VITALS: PULSE 64; PULSE 71
== END ==
PROVIDERS: PCP Family Medicine; Visit Provider Internal Medicine Pulmonary Disease
DX: F17.210 Nicotine dependence, cigarettes, uncomplicated (principal); Z12.2 Encounter for screening for malignant neoplasm of respiratory organs; R06.09 Other forms of dyspnea
CPT/HCPCS: 71271; 94060; 94618; 94640; 94726; 94729

== ENCOUNTER 2023-10-22 13:39 | Outpatient (CLI) | payer MEDICARE, SELFPAY ==
[2023-10-22] MEDS: SODIUM CHLORIDE 0.9% 10ML FLUSH SYRINGE 10 ML IV (13:55)
== END 2023-10-22 14:00 | disposition home or self-care (01) ==
LOC: INF 13:40
PROVIDERS: PCP Family Medicine; Visit Provider Family Medicine
DX: Z45.2 Encounter for adjustment and management of vascular access device (principal)
CPT/HCPCS: 96523; J1642

== ENCOUNTER 2023-12-04 17:55 | Emergency (ER) | payer MEDICARE, SELFPAY ==
[2023-12-04 17:57] VITALS: BP 182/95; PULSE 78; RESP 20; TEMP 36.6; O2SAT 95; BMI 29.0
--- NOTE | 2023-12-04 18:11 | ED_ITS ---
Discharge Plan Disposition Patient Disposition: Home, Self-Care Prescriptions Prescriptions: No Action atorvastatin 40 mg tablet 40 mg PO HS niacin 250 mg tablet 250 mg PO HS levothyroxine 112 mcg capsule 125 mcg PO DAILY Galzin 50 mg (zinc) capsule 50 mg PO DAILY meloxicam 15 mg tablet 15 mg PO DAILY albuterol sulfate 90 mcg/actuation HFA aerosol inhaler 1 inh INHALATION Q6H PRN (Reason: soa) omeprazole 40 mg capsule,delayed release(DR/EC) 40 mg PO DAILY ascorbic acid (vitamin C) 1,000 mg capsule 1 g PO DAILY Stiolto Respimat 2.5-2.5 mcg/actuation mist 2 puff inhalation ONCE PRN metoprolol tartrate 25 mg tablet 12.5 mg PO BID Qty: 30 6RF losartan 50 mg tablet 50 mg PO DAILY ipratropium-albuterol 0.5 mg-3 mg(2.5 mg base)/3 mL solution for nebulization 3 ml inhalation QID PRN (Reason: shortness of breath or wheezing) 90 Days Qty: 90 3RF cholecalciferol (vitamin D3) 5,000 UNIT capsule 5,000 unit PO DAILY cyanocobalamin (vitamin B-12) 1,000 MCG capsule 1,000 mcg PO DAILY aspirin 81 MG tablet,chewable 81 mg PO HS Referrals Follow up/Referrals: Ted Munoz MD [Physician] - See instructions Sree Deleon MD [Primary Care Provider] - See instructions Activity Restrictions/Add. Instructions Additional Instructions/Restrictions: There is no evidence of a foreign body in your ear. Your external auditory canal was very clean and got good visualization already down to your tympanic membrane/your eardrum. There specifically is no evidence of a bug. The auditory perception that you are hearing is not secondary to a foreign body. I recommend you follow-up with our ear nose and throat doctor for further hearing testing. You do have some inflammation of your external auditory canal I recommend you continue to take your antibiotic drops that were provided to you earlier today by your primary care doctor. Clinical Impressions Clinical Impression: Otitis externa, Abnormal auditory perception Instructions Patient Instructions: DI for Skin Abscess Discharge ED Provider: Brook Dudley General Adult HPI General Chief complaint: Skin/Abscess/Foreign Body Stated complaint: Bug in left ear Time Seen by Provider: 12/04/23 18:05 Mode of Arrival: Ambulatory Source of Information: Patient Limitations: No Limitations Description of Symptoms (Recalled from ER Triage Doc. by RN): pt thinks he has a bug in his left ear, saw pcp about it on friday and was given drops but it is still bothering him History of Present Illness HPI narrative: Patient is a 73-year-old gentleman presents today with what he believes is a foreign body in his left ear. States he has been hearing a swishing sound and it took him a long time walk around his house to figure out where the sound was coming from and he felt like it was coming from his left ear. He went to his primary care doctor they irrigated his ear told him he did not have a foreign body started him on Cipro drops for otitis externa and he came to the emergency department as he is having persistent symptoms. Related Data Home Medications Medication Instructions Recorded Confirmed atorvastatin 40 mg tablet 40 mg PO HS Cholesterol 11/05/17 11/20/23 niacin 250 mg tablet 250 mg PO HS Cholesterol 11/05/17 11/20/23 cholecalciferol (vitamin D3) 125 5,000 unit PO DAILY Supplement 12/10/17 11/20/23 mcg (5,000 unit) capsule cyanocobalamin (vitamin B-12) 1,000 mcg PO DAILY Supplement 12/10/17 11/20/23 1,000 mcg capsule meloxicam 15 mg tablet 15 mg PO DAILY INFLAMMATION 05/17/19 11/20/23 aspirin 81 mg chewable tablet 81 mg PO HS HEART HEALTH 06/22/19 11/20/23 albuterol sulfate 90 mcg/actuation 1 inh inhalation Q6H PRN soa 03/29/21 11/20/23 aerosol inhaler omeprazole 40 mg capsule,delayed 40 mg PO DAILY GERD 03/29/21 11/20/23 release ascorbic acid (vitamin C) 1,000 mg 1 g PO DAILY 06/26/22 11/20/23 capsule levothyroxine 112 mcg capsule 125 mcg PO DAILY thyroid 06/26/22 11/20/23 tiotropium 2.5 mcg-olodaterol 2.5 2 puff inhalation ONCE PRN 06/26/22 11/20/23 mcg/actuation mist for inhalation (Stiolto Respimat) zinc acetate 50 mg (zinc) capsule 50 mg PO DAILY 07/30/23 11/20/23 (Galzin) losartan 50 mg tablet 50 mg PO DAILY 10/15/23 11/20/23 Previous Rx's Medication Instructions Recorded metoprolol tartrate 25 mg tablet 12.5 mg PO BID blood pressure #30 04/16/23 tabs ipratropium 0.5 mg-albuterol 3 mg 3 ml inhalation QID PRN shortness 11/20/23 (2.5 mg base)/3 mL nebulization of breath or wheezing 90 days #90 soln mL Allergies Allergy/AdvReac Type Severity Reaction Status Date / Time oxycodone Allergy Severe Hallucinati Verified 11/20/23 15:37 [facility] Disclaimer: The information contained in this section may have been updated after the patient was seen, as this information can be updated by other users. Medical History Abnormal EKG Angina, class II Bilateral carotid bruits CAD (coronary artery disease) Carotid artery stenosis Dizziness Dyspnea Dyspnea on exertion Elevated PSA Encounter for screening for malignant neoplasm of lung HLD (hyperlipidemia) HTN (hypertension) Smoking greater than 30 pack years Tobacco use disorder Surgical History History of colon resection Hx of tonsillectomy Family History Other Cancer Coronary artery disease Diabetes Hypertension Social History Smoking Status: Current every day smoker tobacco type: cigarettes packs per day: 1 alcohol intake: former counseling provided: provider counseling substance use type: denies use current occupational status: retired Travel in the last 8 weeks: None household members: spouse housing: house marital status: caffeine: Yes ROS Obtained: Yes All systems reviewed & no additional complaints except as documented Physical Exam General General appearance: alert ENT ENT exam: Present TM's normal bilaterally and other (External auditory canal is inflamed there is no evidence of a foreign body) Respiratory Respiratory exam: Present normal lung sounds bilaterally Cardiovascular Cardiovascular exam: Present regular rate Neurological Exam Neurological exam: Present alert and oriented X3 Medical Decision Making Artemio Inquiry Pt receiving controlled substance: No Vital Signs: 12/04/23 17:57 Temperature 97.9 F Temperature Source Oral Pulse Rate [Right Radial] 78 Respiratory Rate 20 Blood Pressure [Right Arm] 182/95 H Blood Pressure Mean [Right Arm] 124 02 Sat by Pulse Oximetry 95 Oxygen Delivery Method Room Air Medical Decision Narrative: Patient is a 73-year-old male presents today with an abnormal auditory perception of a swishing sound in his left ear that he felt was may be a bug. I had an excellent view of his external auditory canal on the way down to his tympanic membrane no evidence of any wax or anything of occluding my viewing there is no foreign body specifically no bug. Does have evidence of some otitis externa possibly from his recent irrigation and trauma but he was given a ciprofloxacin drops which I advised that he continue. He has been given a referral to our ear nose and throat doctors and reassured that there is not a bug he was discharged in stable condition. Critical Care Critical Care Time Critical Care Time: No
[2023-12-04 18:17] VITALS: BP 182/80; PULSE 70; RESP 18; TEMP 36.7; O2SAT 97
== END 2023-12-04 18:20 | disposition home or self-care (01) ==
LOC: ER 18:19
PROVIDERS: Emergency Provider Student in an Organized Health Care Education/Training Program; PCP Family Medicine
DX: H60.90 Unspecified otitis externa, unspecified ear (principal); I25.119 Atherosclerotic heart disease of native coronary artery with unspecified angina pectoris; I65.29 Occlusion and stenosis of unspecified carotid artery; E78.5 Hyperlipidemia, unspecified; I10 Essential (primary) hypertension; F17.210 Nicotine dependence, cigarettes, uncomplicated
CPT/HCPCS: 99282

== ENCOUNTER 2023-12-31 12:55 | Outpatient (CLI) | payer MEDICARE, SELFPAY ==
[2023-12-31] MEDS: SODIUM CHLORIDE 0.9% 10ML FLUSH SYRINGE 10 ML IV (13:15)
== END 2023-12-31 13:20 | disposition home or self-care (01) ==
LOC: INF 12:56
PROVIDERS: PCP Family Medicine; Visit Provider Family Medicine
DX: Z45.2 Encounter for adjustment and management of vascular access device (principal)
CPT/HCPCS: 96523; J1642

== ENCOUNTER 2024-03-04 13:12 | Outpatient (CLI) | payer MEDICARE, SELFPAY | END 2024-03-04 13:30 | disposition home or self-care (01) | LOC: INF 13:14 | PROVIDERS: PCP Family Medicine; Visit Provider Family Medicine | DX: C78.02 Secondary malignant neoplasm of left lung (principal); Z45.2 Encounter for adjustment and management of vascular access device | CPT/HCPCS: 96523; J1642 ==

== ENCOUNTER 2024-04-27 13:44 | Outpatient (CLI) | payer MEDICARE, SELFPAY ==
[2024-04-27] MEDS: SODIUM CHLORIDE 0.9% 10ML FLUSH SYRINGE 10 ML IV (13:57)
== END 2024-04-27 14:00 | disposition home or self-care (01) ==
LOC: INF 13:45
PROVIDERS: PCP Family Medicine; Visit Provider Family Medicine
DX: C78.2 Secondary malignant neoplasm of pleura (principal)
CPT/HCPCS: 96523; J1642

== ENCOUNTER 2024-06-30 02:46 | Emergency (ER) | payer MEDICARE, SELFPAY ==
[2024-06-30] VITALS (8 sets, daily range): BP systolic 161–197; BP diastolic 90–118; PULSE 61–84; RESP 15–23; TEMP 36.6–36.7; O2SAT 94–100; BMI 30.2
--- NOTE | 2024-06-30 02:45 | XR_ITS ---
PROCEDURE INFORMATION: Exam: XR Chest Exam date and time: 06/30/2024 2:59 AM Age: 73 years old Clinical indication: Shortness of breath; Additional info: Copd, SOA, productive cough TECHNIQUE: Imaging protocol: Radiologic exam of the chest. Views: 1 view. COMPARISON: CT LUNG SCREENING 10/02/2023 2:16 PM FINDINGS: Tubes, catheters and devices: Left-sided central venous catheter distal tip overlies the right atrium. Lungs: The lungs are clear. Pleural spaces: Unremarkable. No pleural effusion. No pneumothorax. Heart/Mediastinum: Unremarkable. No cardiomegaly. Bones/joints: Unremarkable. IMPRESSION: Left-sided central venous catheter distal tip overlies the right atrium. The lungs are clear. .
--- NOTE | 2024-06-30 02:45 | HMH.EDGENADL ---
Discharge Plan Disposition Patient Disposition: Home, Self-Care Prescriptions Prescriptions: New prednisone 50 mg tablet 50 mg PO DAILY 5 Days Qty: 5 0RF amoxicillin-pot clavulanate 875-125 mg tablet 1 tab PO BID 5 Days Qty: 10 0RF No Action atorvastatin 40 mg tablet 40 mg PO HS niacin 250 mg tablet 250 mg PO HS levothyroxine 112 mcg capsule 125 mcg PO DAILY Galzin 50 mg (zinc) capsule 50 mg PO DAILY Stiolto Respimat 2.5-2.5 mcg/actuation mist 2 puff inhalation DAILY 90 Days Qty: 4 2RF meloxicam 15 mg tablet 15 mg PO DAILY albuterol sulfate 90 mcg/actuation HFA aerosol inhaler 1 inh INHALATION Q6H PRN (Reason: soa) omeprazole 40 mg capsule,delayed release(DR/EC) 40 mg PO DAILY ascorbic acid (vitamin C) 1,000 mg capsule 1 g PO DAILY Stiolto Respimat 2.5-2.5 mcg/actuation mist 2 puff inhalation ONCE PRN (Reason: Dyspnea) metoprolol tartrate 25 mg tablet 12.5 mg PO BID Qty: 30 6RF losartan 50 mg tablet 50 mg PO DAILY ipratropium-albuterol 0.5 mg-3 mg(2.5 mg base)/3 mL solution for nebulization 3 ml inhalation QID PRN (Reason: shortness of breath or wheezing) 90 Days Qty: 90 3RF cholecalciferol (vitamin D3) 5,000 UNIT capsule 5,000 unit PO DAILY cyanocobalamin (vitamin B-12) 1,000 MCG capsule 1,000 mcg PO DAILY aspirin 81 MG tablet,chewable 81 mg PO HS Referrals Follow up/Referrals: Sree Deleon MD [Primary Care Provider] - See instructions Activity Restrictions/Add. Instructions Additional Instructions/Restrictions: Please take Augmentin and prednisone as prescribed for treatment of COPD exacerbation. Please follow-up with your primary care provider. Please return to the emergency department if you develop any new or worsening symptoms or become concerned for your health. Clinical Impressions Clinical Impression: Acute exacerbation of chronic obstructive pulmonary disease, Hypertensive urgency Print Language Print Language: Arabic Discharge ED Provider: Zeus Turner General Adult HPI General Chief complaint: Shortness of Breath/Dyspnea Stated complaint: soa Time Seen by Provider: 06/30/24 02:48 History of Present Illness HPI narrative: 73-year-old male with history of COPD on 2 L nasal cannula baseline, obesity, hypertension, hyperlipidemia, coronary artery disease, colorectal cancer presents with shortness of breath and increased productive cough and congestion. He reports he has been feeling little worse over the last 3 days or so. He reports his blood pressures also been getting higher and despite taking his blood pressure medication as prescribed. Related Data Home Medications ?Medication ?Instructions ?Recorded ?Confirmed atorvastatin 40 mg tablet 40 mg PO HS Cholesterol 11/05/17 05/27/24 niacin 250 mg tablet 250 mg PO HS Cholesterol 11/05/17 05/27/24 cholecalciferol (vitamin D3) 125 5,000 unit PO DAILY Supplement 12/10/17 05/27/24 mcg (5,000 unit) capsule cyanocobalamin (vitamin B-12) 1,000 mcg PO DAILY Supplement 12/10/17 05/27/24 1,000 mcg capsule meloxicam 15 mg tablet 15 mg PO DAILY INFLAMMATION 05/17/19 05/27/24 aspirin 81 mg chewable tablet 81 mg PO [facility] 06/22/19 05/27/24 albuterol sulfate 90 mcg/actuation 1 inh inhalation Q6H PRN soa 03/29/21 05/27/24 aerosol inhaler omeprazole 40 mg capsule,delayed 40 mg PO DAILY GERD 03/29/21 05/27/24 release ascorbic acid (vitamin C) 1,000 mg 1 g PO DAILY 06/26/22 05/27/24 capsule levothyroxine 112 mcg capsule 125 mcg PO DAILY thyroid 06/26/22 05/27/24 tiotropium 2.5 mcg-olodaterol 2.5 2 puff inhalation ONCE PRN Dyspnea 06/26/22 05/27/24 mcg/actuation mist for inhalation (Stiolto Respimat) zinc acetate 50 mg (zinc) capsule 50 mg PO DAILY 07/30/23 05/27/24 (Galzin) losartan 50 mg tablet 50 mg PO DAILY 10/15/23 05/27/24 Previous Rx's ?Medication ?Instructions ?Recorded metoprolol tartrate 25 mg tablet 12.5 mg (1/2 x 25 mg) PO BID blood 04/16/23 pressure #30 tabs ipratropium 0.5 mg-albuterol 3 mg 3 ml inhalation QID PRN shortness 07/17/24 (2.5 mg base)/3 mL nebulization of breath or wheezing 90 days #90 soln mL tiotropium 2.5 mcg-olodaterol 2.5 2 puff inhalation DAILY 90 days #4 05/27/24 mcg/actuation mist for inhalation grams (Stiolto Respimat) amoxicillin 875 mg-potassium 1 tab PO BID 5 days #10 tabs 06/30/24 clavulanate 125 mg tablet prednisone 50 mg tablet 50 mg PO DAILY 5 days #5 tabs 06/30/24 Allergies Allergy/AdvReac Type Severity Reaction Status Date / Time oxycodone Allergy Severe Hallucinati Verified 05/27/24 14:32 [facility] Disclaimer: The information contained in this section may have been updated after the patient was seen, as this information can be updated by other users. Medical History Encounter for screening for malignant neoplasm of lung Smoking greater than 30 pack years Dyspnea on exertion Dizziness Elevated PSA Carotid artery stenosis Dyspnea Angina, class II Tobacco use disorder Bilateral carotid bruits Abnormal EKG HLD (hyperlipidemia) HTN (hypertension) CAD (coronary artery disease) Surgical History Hx of tonsillectomy History of colon resection Family History Other Cancer Coronary artery disease Diabetes Hypertension Social History Smoking Status: Current every day smoker tobacco type: cigarettes packs per day: 1 alcohol intake: former counseling provided: provider counseling substance use type: denies use current occupational status: retired Travel in the last 8 weeks: None household members: spouse housing: house marital status: caffeine: Yes ROS Obtained: Yes All systems reviewed & no additional complaints except as documented Physical Exam General General appearance: alert and in distress (Respiratory distress, pursed lip breathing,) Head Head exam: atraumatic and normocephalic Eye Eye exam: Present normal appearance, PERRL and EOMI ENT ENT exam: Present normal oropharynx and normal external ear exam Neck Neck exam: Present normal inspection and full ROM Chest Chest inspection: Present normal inspection and symmetric chest wall rise; Absent tenderness Respiratory Respiratory exam: Present respiratory distress (Pursed lip breathing, accessory muscle use, diminished in all lung field) and wheezes Cardiovascular Cardiovascular exam: Present regular rate and normal rhythm Abdominal Exam Abdominal exam: Present soft; Absent distention, tenderness or guarding Extremities Exam Extremities exam: Present normal inspection; Absent edema or joint swelling Back Exam Back exam: Present normal inspection; Absent tenderness Neurological Exam Neurological exam: Present alert and oriented X3; Absent motor sensory deficit Psychiatric Psychiatric exam: Present normal affect and normal mood Skin Skin exam: Present warm, dry and normal color Lymphatic Lymphatic Findings: no adenopathy Medical Decision Making Medical Records Medical records reviewed: Yes I reviewed the patient's medical records. Artemio Inquiry Pt receiving controlled substance: No Artemio was queried for this patient: No Vital Signs: 06/30/24 02:46 06/30/24 03:00 06/30/24 03:25 Temperature 97.9 F Temperature Source Oral Pulse Rate 65 74 Pulse Rate [Right] 80 Respiratory Rate 23 15 Blood Pressure 191/112 H Blood Pressure [Right Arm] 197/118 H Blood Pressure Mean [Right Arm] 144 Blood Pressure Source [Right Arm] Automatic Cuff Blood Pressure Position [Right Arm] Supine 02 Sat by Pulse Oximetry 97 100 Oxygen Delivery Method Nasal Cannula Oxygen Flow Rate (LPM) 4 06/30/24 03:25 06/30/24 03:30 06/30/24 03:34 Temperature Temperature Source Pulse Rate 70 84 Pulse Rate [Right] Respiratory Rate 20 Blood Pressure 192/111 H 192/104 H Blood Pressure [Right Arm] Blood Pressure Mean [Right Arm] Blood Pressure Source [Right Arm] Blood Pressure Position [Right Arm] 02 Sat by Pulse Oximetry 96 Oxygen Delivery Method Oxygen Flow Rate (LPM) 06/30/24 03:45 06/30/24 04:00 Temperature Temperature Source Pulse Rate 61 63 Pulse Rate [Right] Respiratory Rate 15 18 Blood Pressure 161/90 H 168/95 H Blood Pressure [Right Arm] Blood Pressure Mean [Right Arm] Blood Pressure Source [Right Arm] Blood Pressure Position [Right Arm] 02 Sat by Pulse Oximetry 94 L 94 L Oxygen Delivery Method Nasal Cannula Nasal Cannula Oxygen Flow Rate (LPM) 4 4 Lab Data Lab results reviewed: Yes I reviewed the patient's lab results. Lab Results 06/30/24 02:46: WBC 8.8, RBC 5.05, Hgb 15.9, Hct 50.3, MCV 99.4 H, MCH 31.5 H, MCHC 31.6 L, RDW 13.6, Plt Count 197, MPV 8.5, Neut % (Auto) 64.4, Lymph % (Auto) 27.1, Hodgeman % (Auto) 5.6, Eos % (Auto) 1.3, Baso % (Auto) 1.6, Neut # (Auto) 5.7, Lymph # (Auto) 2.4, Hodgeman # (Auto) 0.5, Eos # (Auto) 0.1, Baso # (Auto) 0.1, VBG pH 7.31, VBG pCO2 54.6 H, VBG pO2 34.4, VBG HCO3 26.9, VBG Total CO2 28.6 H, VBG O2 Saturation 61.7, VBG Base Excess 0.6, VBG Lactic Acid 1.8, Sodium 141, Potassium 4.5, Chloride 107, Carbon Dioxide 30, Anion Gap 8.5, BUN 18, Creatinine 1.20, Estimated Creat Clear 65, Estimated GFR 59, Est GFR ( Amer) 72, Glucose 98, Calcium 9.2, Total Bilirubin 0.7, AST 32, ALT 22, Alkaline Phosphatase 105, Troponin I < 0.01, NT-Pro-B Natriuret Pep 229 H, Total Protein 7.7, Albumin 4.3, Globulin 3.4 H, Albumin/Globulin Ratio 1.3 06/30/24 02:50: SARS-CoV-2 (PCR) Detected A, Influenza A Untype (PCR) Not detected, Influenza Type B (PCR) Not detected 06/30/24 02:46 06/30/24 02:46 Orders (Tests/Meds): ED MEDICATIONS Generic Name Dose Route Start Last Admin Trade Name Freq PRN Reason Stop Dose Admin Nitroglycerin 0.4 mg 06/30/24 02:45 Nitroglycerin 0.4mg Sl Tablet SL 07/30/24 02:44 Q5MINP PRN Chest Pain Discontinued Medications Generic Name Dose Route Start Last Admin Trade Name Freq PRN Reason Stop Dose Admin Albuterol/Ipratropium 6 ml 06/30/24 02:45 06/30/24 03:25 Ipratropium/Albuterol 3 Ml Neb IH 06/30/24 02:46 6 ml ONCE ONE Administration Magnesium Sulfate 2 gm in 50 mls @ 50 mls/hr 06/30/24 02:45 06/30/24 02:57 Magnesium Sulfate 2gm/50ml Premix IV 06/30/24 03:44 50 mls/hr ONCE ONE Administration Labetalol HCl 10 mg 06/30/24 03:29 06/30/24 03:34 Labetalol 20mg/4ml Syringe IV 06/30/24 03:30 10 mg ONCE ONE Administration Methylprednisolone Sodium Succinate 80 mg 06/30/24 02:45 06/30/24 02:57 Methylprednisolone Sod Succ 125mg Vial IV 06/30/24 02:46 80 mg ONCE ONE Administration Metoprolol Tartrate 25 mg 06/30/24 03:29 06/30/24 03:35 Metoprolol Tartrate 50mg Tablet PO 06/30/24 03:30 25 mg ONCE ONE Administration ORDERS Category Date Time Status CXR --portable [XR chest portable] Stat Exams 06/30/24 02:45 Taken BNP [NT Pro Brain Natriuretic Pep.] Stat Lab 06/30/24 02:46 Completed CBC w/Auto Diff [Complete Blood Count Auto Diff] Stat Lab 06/30/24 02:46 Completed CMP [Comprehensive Metabolic Panel] Stat Lab 06/30/24 02:46 Completed Rapid PCR Covid and Flu A/B Stat Lab 06/30/24 02:50 Completed Troponin I Q3H Lab 06/30/24 02:46 Completed Troponin I Q3H Lab 06/30/24 06:00 Ordered VBG [Venous Blood Gas] Stat RT 06/30/24 02:46 Completed ECG Data Tracing #1: I reviewed this ECG and interpreted as documented below: Sinus rhythm, ventricular rate of 75, low QRS volumes, no ST elevation noted. ECG initial impression date: 06/30/24 ECG initial impression time: 02:48 HEART Score History (anamnesis): Slightly suspicious ECG: Non-specific disturbance Age: >65 years Risk factors: Atherosclerosis history Medical Decision Narrative: 73-year-old male with history of COPD on 2 L nasal cannula baseline, obesity, hypertension, hyperlipidemia, coronary artery disease, colorectal cancer presents with shortness of breath and increased productive cough and congestion. History was obtained via interactive discussion with patient, EMS, chart review. On arrival, patient is afebrile, hypertensive, satting appropriately on 4 L nasal cannula, in respiratory distress with pursed lip breathing and accessory muscle use with diminished breath sounds in all lung weir. Differential includes but is not limited to COPD exacerbation, pneumonia, COVID, flu, hypertensive urgency, hypertensive emergency. Patient was given 2 g mag IV, DuoNeb's x 2, 80 of Solu-Medrol, p.o. metoprolol, IV labetalol for symptomatic management and correction of underlying abnormalities. Workup initiated including CBC CMP troponin BNP chest x-ray EKG. On re-evaluation, patient [remains afebrile, HD stable.] Blood pressure markedly improved, now with systolics in the 160s and stable. Lung sounds markedly improved bilaterally. No significant respiratory distress, patient reports symptomatic improvement. Laboratory workup independently interpreted by me and significant for negative troponin, no significant electrolyte derangement, no significant leukocytosis, negative BNP. Imaging independently interpreted by me and significant for emphysematous changes with stable perihilar opacities, no focal pneumonia noted. See radiology read for full review of final results. Admission for COPD exacerbation and hypertensive emergency was considered, but deemed unnecessary due to symptomatic improvement after ED interventions. Given patient history, exam and workup, patient's presentation most likely represents COPD exacerbation and hypertensive urgency. Interactive discussion was had with patient regarding his presentation. He was discharged in stable condition with prescription for steroids and Augmentin for treatment of COPD exacerbation.. Procedures Risk/Benefits of Procedure(s) Were Explained: Yes Critical Care Critical Care Time Critical Care Time: Yes Attestation: On 06/30/24, the high probability of a clinically significant, sudden or life threatening deterioration of the following system(s) respiratory required my full and direct attention, intervention and personal management. The time I documented below is in addition to time spent performing reported procedures but includes the following listed in this critical care notation. Total Time Total Critical Care Time: 40
--- NOTE | 2024-06-30 02:47 | ECG_ITS ---
APPROVED REPORT Exam: Resting ECG HR:75 bpm ECG Measurements Heart Rate 75 AXES AZ 153 P 83 QRSd 76 QRS 96 QT 354 T 73 QTc 382 Conclusion SINUS RHYTHM BORDERLINE RIGHT AXIS DEVIATION [QRS AXIS > 90] BORDERLINE ECG UNCONFIRMED REPORT Electronically signed by : TAMIKO AGARWAL, 06/30/2024 06:54:50
--- NOTE | 2024-06-30 02:52 | PC.NURSE ---
Respiratory notified of VBG and neb tx
[2024-06-30 02:53] LABS: Lactate Venous 1.8 mmol/L (0.4-2.0); VBG Base Excess 0.6 mmol/L (-2.4-2.3); VBG HCO3 26.9 mmol/L (23-30); VBG Oxygen Saturation 61.7 % (50-70); VBG PCO2 54.6 mmol/L (35-51); VBG PH 7.31 mmol/L (7.31-7.41); VBG PO2 34.4 mmol/L (28-40); VBG Total CO2 28.6 mmol/L (23-27)
[2024-06-30] MEDS: MAGNESIUM SULFATE IN WATER 2 GM/50 ML PIGGYBACK IV (02:57)
[2024-06-30] MEDS: METHYLPREDNISOLONE SOD SUCC 125MG VIAL 80 MG IV (02:57)
[2024-06-30 02:58] LABS: Influenza A, PCR Not Detected (NotDetected); Influenza B, PCR Not Detected (NotDetected)
[2024-06-30 02:59] LABS: Chloride 107 mmol/L (98-107)
[2024-06-30 03:00] LABS: Albumin Level 4.3 g/dl (3.5-5.0); Potassium 4.5 mmoL/L (3.5-5.1); Sodium 141 mmol/L (136-145)
[2024-06-30 03:02] LABS: Blood Urea Nitrogen 18 mg/dl (9-20); Creatinine Clearance Estimated 65 mL/min (50-200); Estimated Glomerular Filt Rate 59 ml/min (>60); GFR (African American) 72 ML/MIN (>60)
[2024-06-30 03:03] LABS: Alanine Aminotransferase 22 U/L (12-78); Albumin/Globulin Ratio 1.3 (1.1-1.8); Alkaline Phosphatase 105 U/L (38-126); Anion Gap 8.5 mEq/L (5-15); Aspartate Amino Transferase 32 U/L (17-59); Bilirubin,Total 0.7 mg/dl (0.2-1.3); Calcium 9.2 mg/dl (8.4-10.2); Carbon Dioxide 30 mmol/L (22.0-30.0); Globulin 3.4 g/dL (1.3-3.2); Glucose 98 mg/dl (74-100); Total Protein,Serum 7.7 g/dl (6.3-8.2)
[2024-06-30 03:12] LABS: NT Pro Brain Natriuretic Pep. 229 pg/mL (0-125)
[2024-06-30 03:20] LABS: Troponin I < 0.01 ng/ml (0.00-0.034)
[2024-06-30 03:24] LABS: Basophils # 0.1 K/mm3 (0-0.2); Basophils % 1.6 % (0.1-2.0); Eosinophils # 0.1 K/mm3 (0.0-0.4); Eosinophils % 1.3 % (0.1-12.0); Hematocrit 50.3 % (42.0-52.0); Hemoglobin 15.9 g/dL (14.1-18.0); Lymphocytes # 2.4 K/mm3 (0.7-4.5); Lymphocytes % 27.1 % (10-50); Mean Corpuscular HGB Conc 31.6 g/dL (31.8-35.4); Mean Corpuscular Hemoglobin 31.5 pg (27.0-31.2); Mean Corpuscular Volume 99.4 fl (80-94); Mean Platelet Volume 8.5 fl (7.4-10.4); Monocytes # 0.5 K/mm3 (0.1-1.0); Monocytes % 5.6 % (1.7-9.3); Neutrophils # 5.7 K/mm3 (1.8-7.8); Neutrophils % 64.4 % (37.0-80.0); Platelet Count 197 K/mm3 (142-424); Red Blood Count 5.05 M/mm3 (4.60-6.20); Red Cell Distribution Width 13.6 % (11.5-17.5); White Blood Count 8.8 K/mm3 (4.8-10.8)
[2024-06-30] MEDS: IPRATROPIUM/ALBUTEROL 3 ML NEB 6 ML IH (03:25)
[2024-06-30 03:32] LABS: Coronavirus 19, PCR Detected (NotDetected)
[2024-06-30] MEDS: LABETALOL 20MG/4ML SYRINGE 10 MG IV (03:34)
[2024-06-30] MEDS: METOPROLOL TARTRATE 50MG TABLET 25 MG PO (03:35)
== END 2024-06-30 04:25 | disposition home or self-care (01) ==
PROVIDERS: Emergency Provider Emergency Medicine; PCP Family Medicine
DX: J44.1 Chronic obstructive pulmonary disease with (acute) exacerbation (principal); I16.1 Hypertensive emergency; R05.9 Cough, unspecified; R09.81 Nasal congestion; E78.5 Hyperlipidemia, unspecified; I25.119 Atherosclerotic heart disease of native coronary artery with unspecified angina pectoris; I65.29 Occlusion and stenosis of unspecified carotid artery; F17.210 Nicotine dependence, cigarettes, uncomplicated; I10 Essential (primary) hypertension
CPT/HCPCS: 71045; 80053; 82803; 83880; 84484; 85025; 87636; 93005; 96365; 96375; 99291; J2919; J3475; J7620

== ENCOUNTER 2024-09-20 13:02 | Outpatient (CLI) | payer MEDICARE, SELFPAY ==
[2024-09-20 13:19] VITALS: BP 153/83; PULSE 69; RESP 16; TEMP 36.6; O2SAT 95
[2024-09-20] MEDS: SODIUM CHLORIDE 0.9% 10ML FLUSH SYRINGE 10 ML IV (13:20)
== END 2024-09-20 13:21 | disposition home or self-care (01) ==
LOC: INF 13:03
PROVIDERS: PCP Family Medicine; Visit Provider Family Medicine
DX: Z45.9 Encounter for adjustment and management of unspecified implanted device (principal)
CPT/HCPCS: 96523; J1642

== ENCOUNTER 2024-11-23 13:45 | Outpatient (CLI) | payer MEDICARE, SELFPAY ==
[2024-11-23] MEDS: SODIUM CHLORIDE 0.9% 10ML FLUSH SYRINGE 10 ML IV (13:50)
== END 2024-11-23 13:50 | disposition home or self-care (01) ==
LOC: INF 13:47
PROVIDERS: PCP Family Medicine; Visit Provider Family Medicine
DX: I25.10 Atherosclerotic heart disease of native coronary artery without angina pectoris (principal)
CPT/HCPCS: 96523; J1642

== ENCOUNTER 2025-02-07 13:12 | Outpatient (CLI) | payer MEDICARE, SELFPAY ==
--- OUTSIDE RECORDS SUMMARY | 2025-02-07 13:15 | XMS_ITS ---
Author Organization Unknown [facility] Start Date Provider Encounter for Check-up [phone] [facility]
--- OUTSIDE RECORDS SUMMARY | 2025-02-07 13:15 | XMS_ITS | Data Portability ---
Author Organization [facility] Medicine and [facility] Address [address] [place] [address] Assessment No assessment recorded. Plan of Treatment Reminders Order Date Submit Date Provider Last Modified By Organization Details Last Modified Time Details Appointments None recorded . Lab PSA, total + free, serum or plasma - please draw 1 wk before 4 024 01/07/20 24 [email or web address] [facility] (Lab), [address] [place] [address] [address], [place], [address], 4 07:06:17 PSA, total + free, serum or plasma 023 07/09/20 23 Not available 3 16:18:05 PSA, total + free, serum or plasma 023 01/02/20 23 [email or web address] Not available 3 07:43:08 Referral None recorded . Procedures None recorded . Surgeries None recorded . Imaging None recorded . Medication Orders None recorded . Patient TargetsNo targets recorded. Patient InstructionsNo instructions recorded. Reason for Referral None Reported. Results Created Date Observation Date Name Description Value Unit Range Abnormal Flag Note LastModifiedBy Organization Detail LastModifiedTime 01/02/20 23 01/01/2023 PSA TOTAL + %FREE note Unles s other miles noted testi ng perfo rmed at: [facility] [address] [place] [address] [phone] Xu sahni MD CLIA: [id number] Not Available [facility] (Lab Registration) [address] , [place], [address], 01/03/2023 09:16:31 01/02/20 23 01/03/2023 PSA TOTAL + %FREE prostate specific Ag, serum 7.2 NG/mL 0.0-4. 0 high Stas ECLIA metho dolog y. . Accor ding to the Ameri can Urolo gical Assoc iatio n, Serum PSA shoul d decre ase and remai n at undet ectab le level s after radic al prost atect oliva. The AUA defin es bioch emica l recur rence as an initi al PSA value 0.2 ng/mL or great er follo wed by a subse quent confi rmato ry PSA value 0.2 ng/mL or great er. Value s obtai ubaldo with diffe rent assay metho ds or kits canno t be used inter craig eably . Resul ts canno t be inter prete d as absol [place] evide nce of the prese nce or absen ce of dylan toscano se. SENT TO REFER ENCE LAB Not Available [facility] (Lab Registration) [address], [place], [address], 01/03/2023 09:16:31 01/02/20 23 01/03/2023 PSA TOTAL + %FREE PSA, free 2.23 NG/mL n/a Stas ECLIA metho dolog y. SENT TO REFER ENCE LAB Not Available [facility] (Lab Registration) [address] [place], [address], 01/03/2023 09:16:31 01/02/20 23 01/03/2023 PSA TOTAL + %FREE % free PSA 31.0 % The table below lists the proba bilit y of prost ate cance r for men with non-s uspic ious ANNA resul ts and total PSA betwe en 4 and 10 ng/mL , by patie nt age (Gemini pugh et al, MISHA 1998, 279:1 542). % Free PSA 50-64 yr 65-75 yr 0.00- 10.00 % 56% 55% 10.01 -15.0 0% 24% 35% 15.01 -20.0 0% 17% 23% 20.01 -25.0 0% 10% 20% >25.0 0% 5% 9% Pleas e note: Edward nj et al did not make speci fic recom menda tichiquis regvandana ding the use of perce nt free PSA for any other popul ation of men. Perfo rmed at: - [facility] [address] [facility], [place] [id number] Lab Direc tor: Chadwick river PhD, Phone : [phone] SENT TO REFER ENCE LAB Not Available [facility] (Lab Registration) [address] , [place], [address], 01/03/2023 09:16:31 07/09/2007/09/2023 PSA TOTAL + %FREE note Unles s other miles noted testi ng [facility] [address] [place] [address] [phone] Xu sahni MD CLIA: [id number] Not Available [facility] (Lab Registration) [address] , [place], [address], 07/11/2023 10:14:43 07/09/2007/11/2023 PSA TOTAL + %FREE prostate specific Ag, serum 9.5 NG/mL 0.0-4. 0 high Stas ECLIA metho dolog y. . Accor ding to the Ameri can Urolo gical Assoc iatio n, Serum PSA shoul d decre ase and remai n at undet ectab le level s after radic al prost atect oliva. The AUA defin es bioch emica l recur rence as an initi al PSA value 0.2 ng/mL or great er follo wed by a subse quent confi rmato ry PSA value 0.2 ng/mL or great er. Value s obtai ubaldo with diffe rent assay metho ds or kits canno t be used inter craig eably . Resul ts canno t be inter prete d as absol [place] evide nce of the prese nce or absen ce of dylan toscano se. SENT TO REFER ENCE LAB Not Available [facility] (Lab Registration) [address] [place], [address], 07/11/2023 10:14:43 07/09/20 23 07/11/2023 PSA TOTAL + %FREE PSA, free 2.90 NG/mL n/a Stas ECLIA metho dolog y. SENT TO REFER ENCE LAB Not Available [facility] (Lab Registration) [address] [place], [address], 07/11/2023 10:14:43 07/09/20 23 07/11/2023 PSA TOTAL + %FREE % free PSA 30.5 % The table below lists the proba bilit y of prost ate cance r for men with non-s uspic ious ANNA resul ts and total PSA betwe en 4 and 10 ng/mL , by patie nt age (Gemini keaton et al, MISHA 1998, 279:1 542). % Free PSA 50-64 yr 65-75 yr 0.00- 10.00 % 56% 55% 10.01 -15.0 0% 24% 35% 15.01 -20.0 0% 17% 23% 20.01 -25.0 0% 10% 20% >25.0 0% 5% 9% Pleas e note: Edward nj et al did not make speci fic recom menda tions regar ding the use of perce nt free PSA for any other popul ation of men. Perfo rmed at: [facility] [place] [id number] [facility] Lab Direc tor: Chadwick river PhD, Phone : [phone] SENT TO REFER ENCE LAB Not Available [facility] (Lab Registration) [address] [place], [address], 07/11/2023 10:14:43 Result Notes None recorded. Problems Name Problem SNOMED Code Status Onset Date Resolution Date Notes Provider Name and Address Organization Details Recorded Time Myocardial infarction 30386829 Active 2022 NIKO Valiente - [facility] - [place] & [place] 3 13:23:14 Sleep apnea 49841291 Active 2022 NIKO Valiente [facility] & [place] 3 13:23:55 Hypertensive disorder 38043857 Active 2022 NIKO Valiente [facility] & [place] 3 13:24:11 Problem Notes None recorded. Medical Equipment None Reported. Allergies No known drug allergies Medications Name Sig Start Date Stop Date Status Note LastModified by Organization Details LastModified Time atorvastatin 40 mg tablet active Not Available Not Available Not Available prednisone 10 mg tablet TAKE 5 TABLETS BY MOUTH ONCE DAILY IN THE MORNING WITH FOOD FOR 5 DAYS active Not Available Not Available N ot Available ipratropium 0.5 mg-albuterol 3 mg (2.5 mg base)/3 mL nebulization soln USE 3 ML VIA NEBULIZER FOUR TIMES DAILY NEEDED FOR SHORTNESS OF BREATH OR WHEEZING active Not Available Not Available Not Available azithromycin 250 mg tablet active Not Available Not Available Not Available meloxicam 15 mg tablet active Not Available Not Available No t Available amlodipine 5 mg tablet active Not Available Not Available No t Available omeprazole 40 mg capsule,mejia yed release active Not Available Not Available Not Available ciprofloxaci n 0.3 % eye drops active Not Available Not Available Not Available benzonatate 100 mg capsule TAKE ONE CAPSULE BY MOUTH TWICE DAILY NEEDED FOR cough active Not Available Not Available No t Available levothyroxin e 125 mcg tablet active Not Available Not Available Not Available clotrimazole -betamethaso ne 1 %-0.05 % topical cream APPLY TOPICALLY TO THE AFFECTED AREA TWICE DAILY active Not Available Not Available No t Available losartan 25 mg tablet active Not Available Not Available No t Available methylpredni solone 4 mg tablets in a dose pack FOLLOW PACKAGE DIRECTIONS active Not Available Not Available N ot Available albuterol sulfate HFA 90 mcg/actuatio n aerosol inhaler INHALE 2 PUFFS BY MOUTH FOUR TIMES DAILY active Not Available Not Available Not Available losartan 100 mg tablet active Not Available Not Available No t Available doxycycline hyclate 100 mg tablet TAKE 1 TABLET BY MOUTH TWICE DAILY FOR 5 DAYS active Not Available Not Available No t Available levothyroxin e 112 mcg tablet active Not Available Not Available Not Available amoxicillin 875 mg-potassium clavulanate 125 mg tablet TAKE 1 TABLET BY MOUTH TWICE DAILY FOR 5 DAYS active Not Available Not Available No t Available metoprolol tartrate 25 mg tablet active Not Available Not Available No t Available Stiolto Respimat 2.5 mcg-2.5 mcg/actuatio n solution for inhalation active Not Available Not Available N ot Available BinaxNOW COVID-19 Ag Self Test kit TEST DIRECTED TODAY active Not Available Not Available No t Available Vitals Date Recorded Body height Body mass index (BMI) Body weight Provider Name and Address Organization Details Last Updated DateTime 01/01/2023 172.72 cm 27.4 kg/m2 54606.63 g Melissa Glass [facility] & [place] 01/01/2023 13:22:14 Date Recorded Body height Body mass index (BMI) Body weight Body temperature Provider Name and Address Organization Details Last Updated DateTime 07/09/2023 172.72 cm 27.4 kg/m2 88015.63 g 98 [degF] Gretchen Pierce [facility] & [place] 07/09/2023 10:00:49 Date Recorded Body height Body mass index (BMI) Body weight Body temperature Provider Name and Address Organization Details Last Updated DateTime 01/07/2024 172.72 cm 27.4 kg/m2 70325.63 g 98.1 [degF] Dalila Golden [facility] & [place] 01/07/2024 09:50:40 Social History None recorded. Functional Status None recorded. Mental Status None recorded. Family History Nothing Reported. Medical History No medical history recorded. Past Encounters Encounter ID Performer Location Encounter Start Date Encounter Closed Date Diagnosis/Indication Diagnosis SNOMED-CT Code Diagnosis ICD10 Code Diagnosis Note [id number] Mac Mariscal Jr, MD [facility] [address] [address] 01/01/2023 12:47:31 01/01/2023 14:15:38 Prostate specific antigen above reference range 677960512 R97.20 Patient with history of elevated PSA. His last PSA in June was 6.8 with a free PSA putting him at a 9% risk of prostate cancer. Previous PSAs were 6.6 in September 2021, 5.2 in March 2021 and 4.4 in September 2020. We will repeat a free and total PSA today. His last prostate examinatio n was normal 6 months ago. [id number] Mac Mariscal Jr, MD [facility] [address] [address] 07/09/2023 09:49:35 07/09/2023 11:07:15 Prostate specific antigen above reference range 659541568 R97.20 Patient with history of elevated PSA. his PSA in December was 7.2 which is stable. His free PSA puts him at low risk of prostate cancer. Prostate examinatio n today is benign. We will recheck a free and total PSA in his stable continue close monitoring . [id number] Mac Mariscal Jr, MD [facility] [address] [address] 01/07/2024 09:42:54 01/07/2024 10:19:21 Prostate specific antigen above reference range 826486775 R97.20 Patient with history of elevated PSA. Patient's PSA is slowly climbing but his free PSAs have put him at low risk of prostate cancer. He discussed treatment options including continued close monitoring versus prostate biopsy. Patient is comfortabl e with continued monitoring . We will see him back in 6 months with a free and total PSA. Health Concerns Section Related Observation LastModified by Organization Detai ls LastModified Time None Recorded Concern Status LastModified by Organization Details LastModified Time None Recorded Advance Directives Directive None Recorded Payers Encounter Date Sequence Insurance Name Policy Number Policy Jackson Covered Member ID Jackson Member ID Guarantor Name 01/01/2023 1 [employer] (MEDICARE REPLACEMENT/A DVANTAGE - PPO) Sonia Reynoso [id number] Sonia Reynoso 07/09/2023 1 [employer] (MEDICARE REPLACEMENT/A DVANTAGE - PPO) Sonia Reynoso [id number] Sonia Reynoso 01/07/2024 1 [employer] (MEDICARE REPLACEMENT/A DVANTAGE - PPO) Sonia Reynoso [id number] Sonia Reynoso Notes Date Note Type Note Provider Name and Address Organization Details Recorded Time 01/01/2023 text/html patient is a 72-year-old white male with a history of elevated PSA. He returns today for six-month checkup. His PSA in June 2021 showed a total PSA of 6.8 with a free PSA of 30.4 which puts him at a 9% risk of prostate cancer. Patient continues to void without difficulty. His past medical history includes a history of rectal cancer for which he is doing well. 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 Mac Mariscal Jr, MD [address] [place] [address], [address], [place], [address], [facility] & [place] 01/01/2023 16:38:26 07/09/2023 text/html Patient is a 72-year-old white male with history of elevated PSA. Returns today for six-month checkup. His last PSA in December 2022 was 7.2 with a free PSA of 31 putting him at a 9% risk of prostate cancer. Previous PSA was 6.8 in June 2021 again with a free PSA that puts him at a low chance of prostate cancer. Patient continues to void without difficulty. Past medical history is significant for history of rectal cancer for which he is doing well. Mac Mariscal Jr, MD [address] [facility], [address], [place], [address], [facility] & [place] 07/09/2023 12:39:50 01/07/2024 text/html Patient is a 73-year-old white female with a history of elevated PSA. His recent PSA in November 2023 was 10.5. Previous PSA was 9.5 in June 2023 free PSA that put him at a 9% risk of prostate cancer. Previous PSAs were 7 2 in December 2022 again was free PSA putting him at low risk of prostate cancer. PSA was 6.8 in June 2021. Patient denies any lower urinary tract symptoms. His past medical history is significant for rectal cancer status post surgery in 2017 with no recurrence. His prostate gland is 30 g smooth and symmetric his last visit in June. Mac Mariscal Jr, MD [address] [facility], [address], [place], [address], [facility] & [place] 01/07/2024 13:18:27
[2025-02-07] MEDS: SODIUM CHLORIDE 0.9% 10ML FLUSH SYRINGE 10 ML IV (13:20)
== END 2025-02-07 13:20 | disposition home or self-care (01) ==
LOC: INF 13:13
PROVIDERS: PCP Family Medicine; Visit Provider Family Medicine
DX: Z45.2 Encounter for adjustment and management of vascular access device (principal)
CPT/HCPCS: 96523; J1642

== ENCOUNTER 2025-05-30 12:39 | Outpatient (CLI) | payer MEDICARE, SELFPAY ==
--- OUTSIDE RECORDS SUMMARY | 2025-05-30 12:42 | XMS_ITS | Clinical Summary ---
Author Organization [facility] Address [address] [place] [address] Care Team Providers Care Litigation Paralegal Name Role Phone Sree Porras Primary Care Provider Rama jackson Allergies Active Allergy Reactions Criticality Noted Date Comments Oxycodone Other - please docum ent in the comment field Low 08/05/2019 Medications albuterol 108 (90 Base) MCG/ACT inhaler 1 Active amLODIPine (Norvasc) 5 MG tablet 1 Active aspirin (GoodSense Aspirin) 81 MG chewable tablet 1 tab(s) orally once a day Active losartan (Cozaar) 100 MG tablet 1 Active meloxicam (Mobic) 15 MG tablet 1 Active metoprolol tartrate (Lopressor) 25 MG tablet 1 Active simethicone (Bicarsim) 80 MG tablet 1 tab(s) orally 3 times a day (after meals), As Needed Active omeprazole (PriLOSEC) [address] capsule 1 Active Stiolto Respimat 2.5-2.5 MCG/ACT aerosol solution inhaler 1 Active ibuprofen 400 MG tablet 1 tab(s) orally every 6 hours -Take as Directed 9 Active levothyroxine (Synthroid, Levoxyl) 125 MCG tablet 2 Active umeclidinium-vi lanterol (Anoro Ellipta) 62.5-25 MCG/INH aerosol powder 1 puff(s) inhaled once a day Active atorvastatin (Lipitor) 40 MG tablet 1 tab(s) orally once a day Active clotrimazole-be tamethasone (Lotrisone) cream APPLY TOPICALLY TO THE AFFECTED AREA TWICE DAILY 3 Active Active Problems Problem Noted Date Diagnosed Date Panlobular emphysema 06/14/2024 Has been smoking tobacco for 30 years or more History of coronary artery bypass graft 06/14/20 24 History of percutaneous coronary intervention Coronary artery disease invo lving knik coronary artery of knik heart 06/14/2024 Benign prostatic hyperplasia with lower urinary tract symptoms 06/14/2024 Gastroesophageal reflux disease without esophagi tis 06/14/2024 Hypothyroidism 06/14/2024 HTN (hypertension) 06/14/2024 High cholesterol 06/14/2024 Arthritis 06/14/2024 Malignant neoplasm of rectum 09/10/2021 Encounters Date Type Department Care Team Description 04/27/2025 Orders Only [facility] [address] [place] [address] Mary Mobley RN 04/27/2025 Orders Only [facility] [address] [place] [address] Wallace Tristan MD Malignant neoplasm of rectum (CMS/HCC) (Primary Dx) from Last 3 Months Social History Tobacco Use Types Packs/Day Years Used Date Smoking Tobacco: Every Day Cigarettes 1 50 Smokeless Tobacco: Never Tobacco Cessation:Ready to Q uit: Not Asked; Counseling Given: Not Answered Alcohol Use Standard Drinks/Week Comments Never 0 (1 standard drink = 0.6 oz pur e alcohol) PHQ-2 Answer Date Recorded Patient Health Questionnaire-2 Score 0 06/11/2022 PHQ-2A Answer Date Recorded Depression Risk 0 06/10/2023 Sex and Gender Information Value Date Recorded Sex Assigned at Not on file Legal Sex Male 6:16 PM EDT Gender Identity Not on file Sexual Orientation Not on file Last Filed Vital Signs Vital Sign Reading Time Taken Comments Blood Pressure 101/62 06/14/2024 8:55 AM EDT Pulse 77 06/14/2024 8:55 AM EDT Temperature 36.5 C (97.7 F) 06/14/2024 8:35 AM EDT Respiratory Rate 21 06/14/2024 8:55 AM EDT Oxygen Saturation 94% 06/14/2024 8:55 AM EDT Inhaled Oxygen Concentration - - Weight 79.7 kg (175 lb 11.3 oz) 06/14/2024 7:15 AM EDT Height 167.6 cm (5' 6 ) 06/14/2024 7:15 AM EDT Body Mass Index 28.36 06/14/2024 7:15 AM EDT Plan of Treatment Upcoming Encounters Date Type Department Care Team (Late st Contact Info) Description 08/08/2025 9:50 AM EDT Appointment [facility] [address] [place] [address] Wallace Tristan MD [address] [place] [phone] 08/08/2025 12:40 PM EDT Appointment [facility] [address] [place] [address] Health Maintenance Due Date Last Done Comments [facility]-Hepatitis C Screening 1950 [facility]-Medicare Annual Wellness (AWV) 1949 [facility]-/Child/Adol SDOH Screenings 1949 [id number] Vaccine (#1) 1954 [facility]- SDOH Screenings 1967 [facility]-Adult SDOH Screenings 1967 [facility]-DTaP,Tdap,and Td Vaccines (1 - Tdap) 1968 [facility]-Zoster Vaccines (1 of 2) 1968 CT Colonography 1994 FIT-DNA 1994 FIT 1994 FOBT 1994 Sigmoidoscopy 1994 [facility]-Abdominal Aortic Aneurysm (AAA) Screening 2014 [facility]-Pneumococcal Vaccine: 50+ Years (2 of 2 - PCV) 02/04/2018 02/04/2017 [facility]-Depression Screening 06/10/2024 06/10/2023, 05/27 [facility]-RSV Vaccine: 60+ Years or (1 - 1-dose 75+ series) 2024 Colonoscopy 06/14/2025 06/14/2024, 03/27, 10/04/2019, Additional history exists [facility]-Colorectal Cancer Screening 06/14/2025 [facility]-Influenza Vaccine (#1) 2025 [facility]-Lung Cancer Screening 07/20/20252023, 06/09/2023, 06/11/2022, Additional history exists [facility]-Obesity Intervention Completed 06/10/2023 HPV Vaccines Aged Out No longer eligi ble based on patient's age to complete this topic [facility]-HIB Vaccines Aged Out No longer e ligible based on patient's age to complete this topic [facility]-Hepatitis A Vaccines Aged Out No longer eligible based on patient's age to complete this topic [facility]-IPV Vaccines Aged Out No longer e ligible based on patient's age to complete this topic [facility]-Rotavirus Vaccines Aged Out No lo nger eligible based on patient's age to complete this topic Goals Goal Patient Goal Type Associated Problems Recent Progress Patient-Stated? Author Autogenerat ed Goal Care Plan Autogenerated Problem Rhoda Ana archer Procedures Procedure Name Priority Date/Time Associated Diagnosis Comments CT CHEST W IV CONTRAST Routine 07/20/2024 8:10 AM EDT Malignant neoplasm of rectum (CMS/HCC) COLONOSCOPY Routine 06/14/2024 8:34 AM EDT Malignant neoplasm of rectum (CMS/HCC) from Last 3 Months or Most Recently Relevant to Health Maintenance Results * CT Chest w IV Contrast (07/20/2024 8:10 AM EDT) Anatomical Region Laterality Modality Chest Computed Tomogra phy Impressions 07/20/2024 12:04 PM EDT Chest: No evidence of disease progression. Abdomen/Pelvis: Stable postsurgical changes. No definite evidence of local recurrence or metastatic disease in the abdomen or pelvis. CRITICAL RESULT: No. COMMUNICATION: Per this written report. Drafted by Aissatou Weeks MD on 07/20/2024 11:47 AM Final report signed by Aissatou Weeks MD on 07/20/2024 12:04 PM Narrative 07/20/2024 12:04 PM EDT CLINICAL INDICATION: Rectal cancer, stage II/III/IV, monitor TECHNIQUE: Multiple axial CT images were obtained from thoracic inlet through pubic symphysis following administration of IV contrast, Omnipaque 300, 100 mL. Reformatted images of the abdomen and pelvis in the coronal and sagittal planes were generated from the axial data set to facilitate diagnostic accuracy. Total DLP (Dose-Length Product): 380.08 mGy.cm. Please note: The reported value represents the total of one or more individual components during the CT acquisition on this date and at this time, and as such, the same value may appear in more than one CT report depending on the interpreting/reporting physicians. COMPARISON: CT dated 06/09/2023 FINDINGS: Chest: Lymph Nodes and Mediastinum: No lymphadenopathy by CT size criteria. No mediastinal mass lesions. No suspicious thyroid findings. Cardiovascular: The heart is normal in caliber. No pericardial effusion. Coronary atherosclerotic disease and stenting. Thoracic great vessels are patent. Left port catheter, the tip terminates in the SVC. Lungs and Pleura: The central airways are patent. Ill-defined nodule in the left upper lobe similar to prior measuring about 8 mm (series 3, image 186). No suspicious or enlarging lung nodules to suggest metastatic disease. Surgical changes in the left upper lobe likely related to prior segmentectomy. Mild stable atelectatic changes/scarring. No pleural effusions or suspicious thickening. Musculoskeletal and Body Wall: No clearly aggressive bone lesions. Abdomen/Pelvis: Liver, Gallbladder, Biliary Tract: No suspicious hepatic lesion. Cholelithiasis without acute inflammation. No bile duct dilatation. Spleen: Unremarkable. Pancreas: No suspicious lesion. Coarse calcifications again noted throughout the pancreatic tissue, unchanged. No ductal dilatation. Adrenal Glands: Mild stable thickening of the bilateral adrenal glands. Kidneys: No hydronephrosis or obstructing nephrolithiasis. Stable bilateral renal cysts. Mildly complex/hyperdense renal cyst at the midpole of the right kidney measuring about 13 mm (series 3, image 93) similar to prior. Lymph Nodes: No lymphadenopathy by CT size criteria. Vasculature: The aortoiliac vasculature is normal in caliber and patent throughout demonstrating moderate atherosclerotic changes. GI Tract/Mesentery/Peritoneum: The stomach appears grossly unremarkable. No bowel obstruction or dilatation. No evidence of infectious or inflammatory bowel changes. Stable surgical changes related to prior LAR. No perianastomotic collection or discrete lesion identified. No suspicious mesenteric or peritoneal lesion.. Pelvic Viscera: Unremarkable urinary bladder. Enlarged prostate. No suspicious pelvic lesion. Free Fluid: No free fluid in the abdomen or pelvis. Musculoskeletal and Body Wall: No clearly aggressive bone lesions. Multilevel degenerative changes. Procedure Note Aissatou Weeks MD - 07/20/2024 CLINICAL INDICATION: Rectal cancer, stage II/III/IV, monitor TECHNIQUE: Multiple axial CT images were obtained from thoracic inlet through pubicsymphysis following administration of IV contrast, Omnipaque 300, 100 mL.Reformatted images of the abdomen and pelvis in the coronal and sagittalplanes were generated from the axial data set to facilitate diagnosticaccuracy. Total DLP (Dose-Length Product): 380.08 mGy.cm. Please note: The reportedvalue represents the total of one or more individual components during theCT acquisition on this date and at this time, and as such, the same valuemay appear in more than one CT report depending on theinterpreting/reporting physicians. COMPARISON: CT dated 06/09/2023 FINDINGS: Chest: Lymph Nodes and Mediastinum: No lymphadenopathy by CT size criteria. Nomediastinal mass lesions. No suspicious thyroid findings. Cardiovascular: The heart is normal in caliber. No pericardial effusion.Coronary atherosclerotic disease and stenting. Thoracic great vessels arepatent. Left port catheter, the tip terminates in the SVC. Lungs and Pleura: The central airways are patent. Ill-defined nodule inthe left upper lobe similar to prior measuring about 8 mm (series 3, ). No suspicious or enlarging lung nodules to suggest metastaticdisease. Surgical changes in the left upper lobe likely related to priorsegmentectomy. Mild stable atelectatic changes/scarring. No pleuraleffusions or suspicious thickening. Musculoskeletal and Body Wall: No clearly aggressive bone lesions. Abdomen/Pelvis: Liver, Gallbladder, Biliary Tract: No suspicious hepatic lesion.Cholelithiasis without acute inflammation. No bile duct dilatation. Spleen: Unremarkable. Pancreas: No suspicious lesion. Coarse calcifications again notedthroughout the pancreatic tissue, unchanged. No ductal dilatation. Adrenal Glands: Mild stable thickening of the bilateral adrenal glands. Kidneys: No hydronephrosis or obstructing nephrolithiasis. Stablebilateral renal cysts. Mildly complex/hyperdense renal cyst at the midpoleof the right kidney measuring about 13 mm (series 3, image 93) similar toprior. Lymph Nodes: No lymphadenopathy by CT size criteria. Vasculature: The aortoiliac vasculature is normal in caliber and patentthroughout demonstrating moderate atherosclerotic changes. GI Tract/Mesentery/Peritoneum: The stomach appears grossly unremarkable.No bowel obstruction or dilatation. No evidence of infectious orinflammatory bowel changes. Stable surgical changes related to prior LAR.No perianastomotic collection or discrete lesion identified. No suspiciousmesenteric or peritoneal lesion.. Pelvic Viscera: Unremarkable urinary bladder. Enlarged prostate. Nosuspicious pelvic lesion. Free Fluid: No free fluid in the abdomen or pelvis. Musculoskeletal and Body Wall: No clearly aggressive bone lesions.Multilevel degenerative changes. IMPRESSION: Chest: No evidence of disease progression. Abdomen/Pelvis: Stable postsurgical changes. No definite evidence of localrecurrence or metastatic disease in the abdomen or pelvis. CRITICAL RESULT: No. COMMUNICATION: Per this written report. Drafted by Aissatou Weeks MD on 07/20/2024 11:47 AM Final report signed by Aissatou Weeks MD on 07/20/2024 12:04 PM us Wallace Tristan MD IMG CT PROCEDURES Final Result * Colonoscopy (06/14/2024 8:34 AM EDT) Anatomical Region Laterality Modality Endoscopy Narrative 06/14/2024 8:41 AM EDT Table formatting from the original result was not included. Impression: Normal. Colonoscopy scheduled for history of rectal cancer. Prior low anterior resection. Overall, normal colonoscopy. However, 1 identified area with suspected pedunculated polyp could not be re-identified on withdrawal of the scope. Multiple attempts of re passing the area still unable to identify what was thought to be a small polyp during forward progression. Recommend short interval colonoscopy within 1 year. Otherwise, no new polyps, masses, or lesions. Recommendations Repeat colonoscopy in 1 year Indication Order Indication: Malignant neoplasm of rectum (CMS/HCC) Medications See anesthesia record for anesthesia administered medications. Staff Staff Role Carolyn Valverde CRNA CRNA Hourigan, Jon S, MD Proceduralist Germania King MD Resident - Assisting Arcenio Rodriguez RN Endo Nurse Ghasasn Victoria MD Anesthesiologist Olga Montgomery Endo Mannequin Refinisher Preprocedure A history and physical has been performed, and patient medication allergies have been reviewed. The patient's tolerance of previous anesthesia has been reviewed. The risks and benefits of the procedure and the sedation options and risks were discussed with the patient. All questions were answered and informed consent obtained. Details of the Procedure The patient underwent monitored anesthesia care, which was administered by an anesthesia professional. The patient's blood pressure, heart rate, level of consciousness, respirations and oxygen were monitored throughout the procedure. A digital rectal exam was performed. A perianal exam was performed. The scope was introduced through the anus and advanced to the cecum. Retroflexion was performed in the rectum. The quality of bowel preparation was evaluated using the [place] Bowel Preparation Scale with scores of: right colon = 2, transverse colon = 2, left colon = 2. The total BBPS score was 6. Bowel prep was adequate. The patient experienced no blood loss. The procedure was not difficult. The patient tolerated the procedure well. There were no apparent adverse events. Attestation I personally performed the entire procedure Events Procedure Events Event Event Time ENDO SCOPE IN TIME 06/14/2024 8:13 AM ENDO SCOPE OUT TIME 06/14/2024 8:31 AM Specimens No specimens were documented in this log. Findings All observed locations appeared normal. Wallace Tristan MD GI PROCEDURE ORDERABLES Final Result from Last 3 Months or Most Recently Relevant to Health Maintenance Additional Health Concerns Active Problems Noted Date Diagnosed Date Autogenerated Problem 04/27/[address] [place] [place] [id number] [employer] MEDICARE Care Teams Litigation Paralegal Relationship Specialty Start Date End Date Sree Porras PCP - General 06/11/22
--- OUTSIDE RECORDS SUMMARY | 2025-05-30 12:42 | XMS_ITS | Encounter Summary ---
Author Organization [facility] Address [address] [place] [address] Care Team Providers Care Coal Trimmer Name Role Phone ChiquitaSree Primary Care Provider Rama jackson Encounter Details Date Type Department Care Team (Late Contact Info) Description 04/27/2025 Orders Only [facility] [address] [place] [id number] Mary Mobley, RN [id number] Social History Tobacco Use Types Packs/Day Years Used Date Smoking Tobacco: Every Day Cigarettes 1 50 Smokeless Tobacco: Never Alcohol Use Standard Drinks/Week Comments Never 0 (1 standard drink = 0.6 oz pur e alcohol) PHQ-2 Answer Date Recorded Patient Health Questionnaire-2 Score 0 06/11/2022 PHQ-2A Answer Date Recorded Depression Risk 0 06/10/2023 Sex and Gender Information Value Date Recorded Sex Assigned at Not on file Legal Sex Male 6:16 PM EDT Gender Identity Not on file Sexual Orientation Not on file documented as of this encounter Plan of Treatment Upcoming Encounters Date Type Department Care Team (Late Contact Info) Description 08/08/2025 9:50 AM EDT Appointment [facility] [address] [place] [phone] Wallace Tristan MD [address] [facility] [address] [place] [address] 08/08/2025 12:40 PM EDT Appointment [facility] [address] [facility] [place] [address] documented as of this encounter Goals Goal Patient Goal Type Associated Problems Recent Progress Patient-Stated? Author Autogenerat ed Goal Care Plan Autogenerated Problem Ana Alaniz documented as of this encounter Visit Diagnoses Not on filedocumented in this encounter Additional Health Concerns Active Problems Noted Date Diagnosed Date Autogenerated Problem 04/27/2025 Assessment Noted Time A fall risk assessment has been complete d for the patient 06/10/2023 10:04 AM EDT A Body Mass Index follow-up plan has been documented for the patient 06/11/2023 6:56 PM EDT documented as of this encounter Care Teams Coal Trimmer Relationship Specialty Start Date End Date Sree Porras PCP - General 06/11/22 documented as of this encounter
--- OUTSIDE RECORDS SUMMARY | 2025-05-30 12:42 | XMS_ITS | Encounter Summary ---
Author Organization [facility] Address [address] [place] [address] Care Team Providers Care Contract Negotiation Specialist Name Role Phone Sree Porras Primary Care Provider Rama jackson Reason for Referral * Imaging (Routine) - Pending Review Specialty Diagnoses / Procedures Referred By Contac t Referred To Contact Radiology Diagnoses Malignant neoplasm of rectum (CMS/HCC) Procedures CT Abdomen Pelvis w IV Contrast Wallace Tristan MD [address] [address] Phone: tel: fax: Referral ID Status Reason Start Date Expiration Date V isits Requested Visits Authorized [id number] Pending Review 04/27/2025 10/27/2026 1 1 * Imaging (Routine) - Pending Review Specialty Diagnoses / Procedures Referred By Contac t Referred To Contact Radiology Diagnoses Malignant neoplasm of rectum (CMS/HCC) Procedures CT Chest w IV Contrast Wallace Tristan MD [address] [facility] [address] [place] [address] Phone: tel: fax: Referral ID Status Reason Start Date Expiration Date V isits Requested Visits Authorized [id number] Pending Review 04/27/2025 10/27/2026 1 1 * Imaging (Routine) - Pending Review Specialty Diagnoses / Procedures Referred By Yeni mosqueda Referred To Contact Gastroenterology Diagnoses Malignant neoplasm of rectum (CMS/HCC) Procedures Colonoscopy Wallace Tristan MD [address] [address] Phone: tel: fax: Referral ID Status Reason Start Date Expiration Date Visits Requested Visits Authorized [id number] Pending Review Specialty Services Required 04/27/2025 10/27/2026 1 1 Encounter Details Date Type Department Care Team (Latest Contact Info) Description 04/27/2025 Orders Only [facility] [address] [place] [address] Wallace Tristan MD [address] [address] Malignant neoplasm of rectum (CMS/HCC) (Primary Dx) Social History Tobacco Use Types Packs/Day Years [...] AM EDT Appointment [facility] [address] [place] [address] Wallace Tristan MD [address] [address] 08/08/2025 12:40 PM EDT Appointment [facility] [address] [place] [address] Scheduled Orders Name Type Priority Associated Diagnoses Orde r Schedule Colonoscopy Endoscopy Routine Malignant neoplasm of rectum (CMS/HCC) Expected: 04/27/2025, Expires: 10/29/2026 CT Chest w IV Contrast Imaging Routine Malignant neoplasm of rectum (CMS/HCC) Expected: 07/25/2025 (Approximate), Expires: 10/29/2026 CT Abdomen Pelvis w IV Contrast Imaging Routine Malignant neoplasm of rectum (CMS/HCC) Expected: 07/25/2025 (Approximate), Expires: 10/29/2026 Creatinine, Plasma Lab STAT Malignant neoplasm of rectum (CMS/HCC) Expected: 07/25/2025 (Approximate), Expires: 10/29/2026 documented as of this encounter Goals Goal Patient Goal Type Associated Problems Recent Progress Patient-Stated? Author Autogenerat ed Goal Care Plan Autogenerated Problem Ana Alaniz documented as of this encounter Visit Diagnoses Diagnosis Malignant neoplasm of rectum (CMS/HCC)- Primary Malignant neoplasm of rectum documented in this encounter Additional Health Concerns Active Problems Noted Date Diagnosed Date Autogenerated Problem 04/27/2025 Assessment Noted Time A fall risk assessment has been complete d for the patient 06/10/2023 10:04 AM EDT A Body Mass Index follow-up plan has been documented for the patient 06/11/2023 6:56 PM EDT documented as of this encounter Care Teams Contract Negotiation Specialist Relationship Specialty Start Date End Date Sree Porras PCP - General 06/11/22 documented as of this encounter
[2025-05-30 13:50] VITALS: PULSE 72
[2025-05-30] MEDS: ALBUTEROL 0.083% 2.5 MG/3 ML NEB IH (13:50)
--- NOTE | 2025-05-30 14:26 | PC.NURSE ---
Pt unable to do 6MWT, states he cannot walk that far
[2025-05-30] MEDS: SODIUM CHLORIDE 0.9% 10ML FLUSH SYRINGE 10 ML IV (14:30)
== END 2025-05-30 14:35 | disposition home or self-care (01) ==
LOC: RT 12:40 → INF 14:12
PROVIDERS: PCP Family Medicine; Visit Provider Internal Medicine Pulmonary Disease
DX: R06.00 Dyspnea, unspecified (principal)
CPT/HCPCS: 94060; 94640; 94726; 94729; 96523; J1642

== ENCOUNTER → 2025-07-01 10:29 | Outpatient (CLI) | payer MEDICARE, SELFPAY ==
--- OUTSIDE RECORDS SUMMARY | 2024-04-13 09:30 | XMS_ITS ---
Author Organization [facility]-Andie Address [address] [facility] [address] [place] [phone] Care Team Providers Care Elevator Serviceman Name Role Phone Jennifer Deleon Primary Care Provider Allergies No Known Allergies Results Component Value Reference Range Notes P-Comprehensive Metabolic Pa pako (CMP) Reviewed date:04/15/2024 08:39:01 AM Interpretation:gluc 101, Cr 1.65, gfr 43 Performing Lab: Notes/Report: Test performed by [facility] , [address], [place] [address] Sina Kinsey MD, [employer]acer CLIA: [id number] Sodium 141 135-145 mEq/L Potassium 4.2 3.5-5.3 mEq/L Chloride 107 97-108 mEq/L CO2 25 22-32 mEq/L Glucose 101 65-99 mg/dL BUN 20 8-23 mg/dL Creatinine 1.65 0.70-1.30 mg/dL Calcium 9.7 8.6-10.4 mg/dL eGFR by Creatinine 43 >59 mL/min/1.73m2 Protein 6.7 6.0-8.3 g/dL Albumin 4.2 3.5-5.3 g/dL Alkaline Phosphatase 88 40-129 IU/L ALT (SGPT) 14 <5-55 IU/L AST (SGOT) 17 <5-46 IU/L Bilirubin, Total 0.5 <0.2-1.2 mg/dL A/G Ratio 1.7 1.1-2.5 mg/dL P-Lipid Panel Reviewed date:04/15/2024 08:39:01 AM Interpretation:hdl 34 Performing Lab: Notes/Report: Test performed by [email or web address], [address] [place], [place] [address] Sina Kinsey MD, Riprap Placer CLIA: [id number] Cholesterol 129 <200 mg/dL Triglycerides 108 <150 mg/dL HDL Cholesterol 34 >39 mg/dL Cholesterol / HDL Ratio 3.79 0.00-4.99 Ratio Non-HDL Cholesterol 95 <130 mg/dL LDL Cholesterol (Calculation) 73 <130 mg/dL LDL Cholesterol Levels* Less than 100 mg/dL Optimal 100 to 129 mg/dL Near Optimal/ Above Optimal 130 to 159 mg/dL Borderline High 160 to 189 mg/dL High 190 mg/dL and above Very High * Categories as recommended by the 2004 ATPIII guidelines LDL/HDL Ratio 2.2 <3.3 Ratio LDL Cholesterol Patient History Test Date: 10/14/2023 LDL Results: 80 Units: mg/dL % Change: - Test Date: 04/13/2024 LDL Results: 73 Units: mg/dL % Change: -8% P-TSH Reviewed date:04/15/2024 08:39:01 AM Interpretation:Normal Performing Lab: Notes/Report: Test performed by [facility] [address] [place] , [place] [address] Sina Kinsey MD, Riprap Placer CLIA: [id number] TSH 3.06 0.43-5.25 mU/L P-Vitamin D, 1, 25 Dihydroxy Reviewed date:04/15/2024 08:39:01 AM Interpretation:Normal Performing Lab: Notes/Report: Test performed by [facility] [address] [place] [address] , [place] [address] Sina Kinsey MD, Riprap Placer CLIA: [id number] Vitamin D, 1, 25 Dihydroxy 65.1 19.9-79.3 pg/m L REASON FOR VISIT 6 months fasting, Needs labs & colon cancer screening Medications Medication SIG (Take, Route, Frequency, Duration) Notes Start Date End Date Status Vitamin D3 125 MCG (5000 UT) 1 cap(s) orally once a day 11/08/2014 Active Vitamin B-12 1000 MCG 1 tab(s) p.o. once a day 01/23/2015 Active Vitamin C 500 MG 1 tab(s) orally once a day; Duration: 30 day(s) Active Zinc 50 MG 1 tab(s) orally once a day; Duration: 30 day(s) Active Ipratropium-Albuterol 0.5-2.5 (3) MG/3ML 3 mL as needed Inhalation every 6 hrs Active Metoprolol Tartrate 25 MG take 1/2 table t twice daily orally 2 times a day Active Losartan Potassium 50 MG 1 tab(s) Orally once a day 03/28/2023 Active Meloxicam 15 MG 1 tab(s) Orally once daily Active Omeprazole 40 MG 1 cap(s) orally once a day Active Atorvastatin Calcium 40 MG take 1 tablet at bedtime Active amLODIPine Besylate 5 MG 1/2 tab(s) oral ly once a day; Duration: 90 days Not-Taking Albuterol Sulfate HFA 108 (90 Base) MCG/ACT INHALE 2 PUFFS FOUR TIMES DAILY; Duration: 90 Active Levothyroxine Sodium 112 MCG 1 tab(s) Orally once a day; Duration: 90 days Active Stiolto Respimat 2.5-2.5 MCG/ACT INHALE 2 PUFFS EVERY 24 HOURS Active Niacin 50 MG 1 cap(s) orally once a day (in the morning) Active Clotrimazole-Betamethason e 1-0.05 % 1 application Externally Twice a day 04/08/2023 Active Aspirin 81 MG 1 tab(s) orally once a day Active Problems Problem Type SNOMED Code ICD Code Onset Dates Problem Status W/U Status Risk Notes Problem Osteoarthritis (159741202) Osteoarthritis (M19.90) Active confirmed Vital Signs Blood pressure systolic 152 mm Hg 04/13/20 24 Blood pressure diastolic 84 mm Hg 024 Heart Rate 76 /min 04/13/2024 Height 66 in 04/13/2024 Weight 182.8 lbs 04/13/2024 BMI 29.50 kg/m2 04/13/2024 Encounters Encounter Location Date [facility] [address] [place] [phone] 04/13/2024 Jennifer Deleon Essential hypertensi on I10 ; Hypothyroidism (acquired) E03.9 ; Vitamin D deficiency E55.9 ; Dyslipidemia E78.5 ; ASCVD (arteriosclerotic cardiovascular disease) I25.10 ; Gastroesophageal reflux disease without esophagitis K21.9 ; Chronic obstructive pulmonary disease, unspecified COPD type J44.9 and Osteoarthritis M19.90 Assessments Encounter Date Diagnosis (ICD Code) Assessment Notes Treatment Notes Treatment Clinical Notes Section Notes 04/13/2024 Essential hypertension (ICD-10 - I10) 04/13/2024 Hypothyroidism (acquired) (ICD-10 - E03.9) 04/13/2024 Vitamin D deficiency (ICD-10 - E55.9) 04/13/2024 Dyslipidemia (ICD-10 - E78.5) 04/13/2024 ASCVD (arteriosclerotic cardiovascular disease) (ICD-10 - I25.10) 04/13/2024 Gastroesophageal reflux disease without esophagitis (ICD-10 - K21.9) 04/13/2024 Chronic obstructive pulmonary disease, unspecified COPD type (ICD-10 - J44.9) 04/13/2024 Osteoarthritis (ICD-10 - M19.90) Plan Of Treatment Medication Medication Name Sig Start Date Stop Date Notes Metoprolol Tartrate 25 MG take 1/2 table t twice daily orally 2 times a day Losartan Potassium 50 MG 1 tab(s) Orally once a day 2022 Meloxicam 15 MG 1 tab(s) Orally once daily Omeprazole 40 MG 1 cap(s) orally once a day Atorvastatin Calcium 40 MG take 1 tablet at bedtime Levothyroxine Sodium 112 MCG 1 tab(s) Or ally once a day; Duration: 90 days Next Appt Details Follow Up: 6 Months, Reason: Progress Notes * HUGO LEIVA DDOB: [birth year] (74 yo M)Acc No.[id number]:04/13/2024 Progress Notes Patient: HUGO JOHNSON Provider: Jennifer Deleon M.D. :1950 A ge:73 Y S ex:Male Date:04/13/2024 Address:[address] [place] [address], [place], [id number] Subjective: * Chief Complaints: * 1 . 6 months fasting. 2. Needs labs & colon cancer screening. * HPI: C ardiology: Pt presents today for a 6 month check up. Pt had fasting labs drawn this morning and are pending. Blood pressure checks at home have been consistently normal. Denies : Chest Pain. D enies : Short of Breath. D enies : Palpitations. D enies : Leg Edema. * ROS: D ERMATOLOGY: no R reina. n o H zenobia. G ASTROENTEROLOGY: no V omiting. n o D iarrhea. U ROLOGY: no D ifficulty urinating. n o B lood in urine. * Medical History: H iatal hernia, HTN, Tobacco addiction, HLP, ASCVD - S/P [place] - Dr. 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 Tristan, BPH - Dr. Mariscal, COPD, GERD, ZEN - on BiPAP per Dr. Lewis. * Surgical History: h ernia repair , tonsillectomy , vasectomy , cardiac stents x 2 3-29-10, colonoscopy (Po) with rectal carcinoma 9/18/17, Anterior resection for CA, Dr. Tristan 08/21/2017, stress test and echocardiagram 10/13, [address] Dr[address] Tristan, clear 09/28/18, Wedge resection left upper lobe lung nodule with path c/w metastatic adenoCA from primary rectal CA --Dr Ben Miller 02/23/19, C-scope/ Dr. Tristan/ normal 04/09/21. * Hospitalization/Major Diagno stic Procedure: h eart attack, [facility] 01-22-10, acute pancreatitis 04/2013, TIA 06/21-. * Family History: F ather: 59 yrs, coronary artery disease, diagnosed with Hypertension in 1975. M other: 83 yrs. S iblings: 26 yrs. P aternal Grand Father: family history unknown . P aternal Grand Mother: family history unknown . M aternal Grand Father: diagnosed with Hypertension, family history unknown . M aternal Grand Mother: diagnosed with Cancer. P aternal uncle: diagnosed with Hypertension. P aternal aunt: family history unknown . M aternal uncle: family history unknown . M aternal aunt: family history unknown . 1 brother(s) . 1 son(s) , 1 daughter(s) . . Strong Family history of CAD. * Social History: C URRENT TOBACCO USE S moking Status: Patient does smoke, packs per day: 1, number of cigarettes per day: 20, Since age of: 15, Smoking preference: cigarettes. C affeine: yes, frequency: coffee. Exercise: yes, regular activity. Home smoke detector use: yes. Marital Status: . Past smoking status: yes, PPD: 1 , years: ,determination:. Recreational drug use: no. Alcohol: No. * Medications: T aking Ipratropium-Albuterol 0.5-2.5 (3) MG/3ML Solution 3 mL as needed Inhalation every 6 hrs , Taking Zinc 50 MG Tablet 1 tab(s) orally once a day , Taking Vitamin C 500 MG Tablet 1 tab(s) orally once a day , Taking Vitamin B-12 1000 MCG Tablet 1 tab(s) p.o. once a day , Taking Vitamin D3 125 MCG (5000 UT) Capsule 1 cap(s) orally once a day , Taking Niacin 50 MG Tablet 1 cap(s) orally once a day (in the morning) , Taking Clotrimazole-Betamethasone 1-0.05 % Cream 1 application Externally Twice a day , Taking Meloxicam 15 MG Tablet TAKE 1 TABLET EVERY DAY , Taking Aspirin 81 MG Tablet Delayed Release 1 tab(s) orally once a day , Taking Losartan Potassium 50 MG Tablet 1 tab(s) Orally once a day , Taking Metoprolol Tartrate 25 MG Tablet TAKE 1/2 TABLET TWICE DAILY orally 2 times a day , Taking Omeprazole 40 MG Capsule Delayed Release 1 cap(s) orally once a day , Taking Stiolto Respimat 2.5-2.5 MCG/ACT Aerosol Solution INHALE 2 PUFFS EVERY 24 HOURS , Taking Levothyroxine Sodium 112 MCG Tablet 1 tab(s) Orally once a day , Taking Atorvastatin Calcium 40 MG Tablet TAKE 1 TABLET AT BEDTIME , Taking Albuterol Sulfate HFA 108 (90 Base) MCG/ACT Aerosol Solution INHALE 2 PUFFS FOUR TIMES DAILY , Not-Taking amLODIPine Besylate 5 MG Tablet 1/2 tab(s) orally once a day , Discontinued Ciprofloxacin HCl 0.2 % Solution 0.25 mL into affected ear Otic every 12 hrs , Medication List reviewed and reconciled with the patient * Allergies: N .K.D.A. Objective: * Vitals: W t:182.8, Temp:97.5, BP:152/84, HR:76, O2 Sat:98% on RA, Nurse:NISA, Ht: 66, BMI:29.50. * Examination: C ardiology: General Appearance: p leasant, NAD. H EENT: sclera and conjunctiva clear, PERRLA, TM's normal, translucent. H eart sounds: R RR, normal S1, S2. M urmur, click , gallop: n one. L ungs: G enerally diminished breath sounds but otherwise clear. C hest with increased AP diameter. Marked thoracic kyphosis. E xtremities: n o leg edema. Assessment: * Assessment: 1. E ssential hypertension - I10 (Primary) 2 . H ypothyroidism (acquired) - E03.9 3 . V itamin D deficiency - E55.9 4 . D yslipidemia - E78.5 5 . A SCVD (arteriosclerotic cardiovascular disease) - I25.10 6. G astroesophageal reflux disease without esophagitis - K21.9 7 . C hronic obstructive pulmonary disease, unspecified COPD type - J44.9 8 . O steoarthritis - M19.90 Plan: * Treatment: Value Reference Range A /G Ratio 1.7 1.1-2.5 - mg/dL * A lbumin 4.2 3.5-5.3 - g/dL * A lkaline Phosphatase 88 40-129 - IU/L * A LT (SGPT) 14 <5-55 - IU/L * A ST (SGOT) 17 <5-46 - IU/L * B ilirubin, Total 0.5 <0.2-1.2 - mg/dL * B UN 20 8-23 - mg/dL * C alcium 9.7 8.6-10.4 - mg/dL * C hloride 107 97-108 - mEq/L * C O2 25 22-32 - mEq/L * C reatinine 1.65 H 0.70-1.30 - mg/dL * G lucose 101 H 65-99 - mg/dL * P otassium 4.2 3.5-5.3 - mEq/L * S odium 141 135-145 - mEq/L * P rotein 6.7 6.0-8.3 - g/dL * e GFR by Creatinine 43 L >59 - mL/min/1.73m2 * Jennifer Deleon 04/15/2024 8 :38:45 AM >See phone encounter 2.?Hypothyroidism (acquired)? Refill Levothyroxine Sodium Tablet, 112 MCG, 1 tab(s), Orally, once a day, 90 days, 90 Tablet, Refills 1.?LAB: P-TSH (Collection Date & Time - 04/13/2024 08:06 AM)?Normal* Value Reference Range T SH 3.06 0.43-5.25 - mU/L * Jennifer Deleon 04/15/2024 8 :38:45 AM >See phone encounter 3.?Vitamin D deficiency?LAB: P-Vitamin D, 1, 25 Dihydroxy (Collection Date & Time - 04/13/2024 08:06 AM)?Normal* Value Reference Range V itamin D, 1, 25 Dihydroxy 65.1 19.9-79.3 - pg /mL * Jennifer Deleon 04/15/2024 8 :38:45 AM >See phone encounter 4.?Dyslipidemia? Refill Atorvastatin Calcium Tablet, 40 MG, take 1 tablet at bedtime, 90 Tablet, Refills 1.?LAB: P-Lipid Panel (Collection Date & Time - 04/13/2024 08:06 AM)?hdl 34* Value Reference Range C holesterol / HDL Ratio 3.79 0.00-4.99 - Ratio * C holesterol 129 <200 - mg/dL * H DL Cholesterol 34 L >39 - mg/dL * L DL Cholesterol (Calculation) 73 <130 - mg/d L * L DL/HDL Ratio 2.2 <3.3 - Ratio * N on-HDL Cholesterol 95 <130 - mg/dL * T riglycerides 108 <150 - mg/dL * Jennifer Deleon 04/15/2024 8 :38:45 AM >See phone encounter 5.?Gastroesophageal reflux disease without esophagitis? Refill Omeprazole Capsule Delayed Release, 40 MG, 1 cap(s), orally, once a day, 90, Refills 1.??6.?Osteoarthritis? Refill Meloxicam Tablet, 15 MG, 1 tab(s), Orally, once daily, 90, Refills 1.?? * Procedure Codes: 9 4760 PULSE OX * Follow Up: 6 Months * Images: Billing Information: * Visit Code: 82190 Office Visit, Est Pt., Level 4. * Procedure Codes: 95407 PULSE OX. * Electronic signature of Jennifer Deleon MD on 07/01/2025 at 10:33 AM EDT Sign off status: Pending * Provider: Jennifer Deleon M.D. Date: 0 04/13/2024 Generated for Julia zelaya/Salbador/Americo on: 0 07/01/2025 10:33 AM EDT History and Physical Notes * HPI (History of Present Illness) Category Sub-Category Detail Notes Category Not es Cardiology Short of Breath Chest Pain Palpitations Leg Edema Examination Category Sub-Category Detail Notes Category Not es Cardiology Lungs: Generally dimini shed breath sounds but otherwise clear. Chest with increased AP diameter. Marked thoracic kyphosis HEENT: sclera and conjuncti va clear, PERRLA, TM's normal, translucent Heart sounds: RRR, normal S1, S2 Extremities: no leg edema Murmur, click , gallop: none General Appearance: pleasant, NAD
--- OUTSIDE RECORDS SUMMARY | 2024-07-08 05:45 | XMS_ITS ---
Author [facility] Address [address] [facility] [address] [facility] [address] [place] [id number] Care Team Providers Care Aurist Name Role Phone Jennifer Deleon Primary Care Provider [phone] Allergies No Known Allergies REASON FOR VISIT [facility] ER f/u Medications Medication SIG (Take, Route, Frequency, Duration) Notes Start Date End Date Status Levothyroxine Sodium 112 MCG 1 tab(s) Orally once a day; Duration: 90 days Active Albuterol Sulfate HFA 108 (90 Base) MCG/ACT INHALE 2 PUFFS FOUR TIMES DAILY; Duration: 90 Active Aspirin 81 MG 1 tab(s) orally once a day Active Metoprolol Tartrate 25 MG take 1/2 table t twice daily orally 2 times a day Active Losartan Potassium 50 MG 1 tab(s) Orally once a day 03/28/2023 Active Clotrimazole-Betamethason e 1-0.05 % 1 application Externally Twice a day 04/08/2023 Active Niacin 50 MG 1 cap(s) orally once a day (in the morning) Active Vitamin C 500 MG 1 tab(s) orally once a day; Duration: 30 day(s) Active Vitamin D3 125 MCG (5000 UT) 1 cap(s) orally once a day 11/08/2014 Active Vitamin B-12 1000 MCG 1 tab(s) p.o. once a day 01/23/2015 Active amLODIPine Besylate 5 MG 1/2 tab(s) oral ly once a day; Duration: 90 days Not-Taking Zinc 50 MG 1 tab(s) orally once a day; Duration: 30 day(s) Active Stiolto Respimat 2.5-2.5 MCG/ACT INHALE 2 PUFFS EVERY 24 HOURS Active Meloxicam 15 MG 1 tab(s) Orally once daily Active Ipratropium-Albuterol 0.5-2.5 (3) MG/3ML 3 mL as needed Inhalation every 6 hrs Not-Takin g Omeprazole 40 MG 1 cap(s) orally once a day Active Atorvastatin Calcium 40 MG take 1 tablet at bedtime Active Vital Signs Blood pressure systolic 104 mm Hg 07/08/20 24 Blood pressure diastolic 60 mm Hg 024 Heart Rate 70 /min 07/08/2024 Height 66 in 07/08/2024 Weight 180.4 lbs 07/08/2024 BMI 29.11 kg/m2 07/08/2024 Encounters Encounter Location Date Provider Diagnosis [facility] [address] [facility] [address] [facility] [address] [place] [phone] 07/08/2024 Jennifer Deleon COVID-19 virus infection U07.1 ; Chronic obstructive pulmonary disease, unspecified COPD type J44.9 and Tobacco abuse Z72.0 Assessments Encounter Date Diagnosis (ICD Code) Assessment Notes Treatment Notes Treatment Clinical Notes Section Notes 07/08/2024 COVID-19 virus infection (ICD-10 - U07.1) 07/08/2024 Chronic obstructive pulmonary disease, unspecified COPD type (ICD-10 - J44.9) 07/08/2024 Tobacco abuse (ICD-10 - Z72.0) Recommend smoking cessation Plan Of Treatment Treatment Notes Assessment Notes Tobacco abuse Recommend smoking ce ssation Next Appt Details Follow Up: as scheduled, Mei son: Progress Notes * HUGO LEIVA DDOB: [birth year] (74 yo M)Acc No.[id number]:07/08/2024 Patient: Soraya HUGO LANGLEY Provider: Jennifer Deleon M.D. :1950 A ge:73 Y S ex:Male Date:07/08/2024 Address:[address] [place] [address] [phone] Subjective: * Chief Complaints: * 1 . [facility] ER f/u. * HPI: H PI: Here for follow up on: E R visit. Pt was transported to [facility] ER on 06/30 via ambulance after experiencing increased SOB for several days. Pt sts that he had b een to a class reunion and believes that he got COVID there. He tested positive for COVID at home prior to going to the ER. In the ER, COVID-positive test was confirmed. His white count was normal. Chest x-ray showed nothing acute. He was discharged with a 5-day prescription for Augmentin and steroids. He has completed his course of medication and returns today for follow-up. Subjectively he is feeling better. His breathing feels normal and his blood pressure has returned to normal.. * ROS: D ERMATOLOGY: no R riena. n o H zenobia. G ASTROENTEROLOGY: no V omiting. n o D iarrhea. U ROLOGY: no D ifficulty urinating. n o B lood in urine. * Medical History: H iatal hernia, HTN, Tobacco addiction, HLP, ASCVD - [place]/P [place] - Dr. 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 Tristan, BPH - Dr. Mariscal, COPD, GERD, ZEN - on BiPAP per Dr. Lewis. * Surgical History: h ernia repair , tonsillectomy , vasectomy , cardiac stents x 2 01-22-10, colonoscopy (Po) with rectal carcinoma 07/14/17, Anterior resection for CA, Dr. Tristan 08/21/2017, stress test and echocardiagram 10/13, [address] Tristan, clear 09/28/18, Wedge resection left upper lobe lung nodule with path c/w metastatic adenoCA from primary rectal CA --Dr Ben Miller 02/23/19, C-scope/ Dr. Tristan/ normal 04/09/21. * Hospitalization/Major Diagno stic Procedure: h eart attack, [place] 01-22-10, acute pancreatitis 04/2013, TIA 06/21-, [facility] ER - SOB 06-30-2024. * Family History: F ather: 59 yrs, [...] no. Alcohol: No. * Medications: T aking Zinc 50 MG Tablet 1 tab(s) orally [...] application Externally Twice a day , Taking Aspirin 81 MG Tablet Delayed Release 1 tab(s) orally once a day , Taking Albuterol Sulfate HFA 108 (90 Base) MCG/ACT Aerosol Solution INHALE 2 PUFFS FOUR TIMES DAILY , Taking Levothyroxine Sodium 112 MCG Tablet 1 tab(s) Orally once a day , Taking Losartan Potassium 50 MG Tablet 1 tab(s) Orally once a day , Taking Metoprolol Tartrate 25 MG Tablet take 1/2 tablet twice daily orally 2 times a day , Taking Atorvastatin Calcium 40 MG Tablet take 1 tablet at bedtime , Taking Omeprazole 40 MG Capsule Delayed Release 1 cap(s) orally once a day , Taking Meloxicam 15 MG Tablet 1 tab(s) Orally once daily , Taking Stiolto Respimat 2.5-2.5 MCG/ACT Aerosol Solution INHALE 2 PUFFS EVERY 24 HOURS , Not-Taking Ipratropium-Albuterol 0.5-2.5 (3) MG/3ML Solution 3 mL as needed Inhalation every 6 hrs , Not-Taking amLODIPine Besylate 5 MG Tablet 1/2 tab(s) orally once a day , Medication List reviewed and reconciled with the patient * Allergies: N .K.D.A. Objective: * Vitals: W t:180.4, Temp:97.6, BP:104/60, HR:70, O2 Sat:98% on RA, Nurse:NISA, Ht: 66, BMI:29.11. * Examination: G eneral Examination: General Appearance: N AD. O ral cavity: n o lesions, mucosa moist and WNL, no erythema. H eart: R SR. L ungs: coarse BS, no wheezes.?Extremities: n o leg edema. Assessment: * Assessment: 1. C OVID-19 virus infection - U07.1 (Primary) 2 . C hronic obstructive pulmonary disease, unspecified COPD type - J44.9 3 . T obacco abuse - Z72.0 ? Plan: * Treatment: * Procedure Codes: 9 4760 PULSE OX * Follow Up: a s scheduled * Images: Billing Information: * Visit Code: 67258 Office Visit, Est Pt., Level 3. * Procedure Codes: 23858 PULSE OX. * Electronic signature of Jennifer Deleon MD on 07/01/2025 at 10:32 AM EDT Sign off status: Pending * Provider: Jennifer Deleon M.D. Date: 0 07/08/2024 Generated for Julia zelaya/Salbador/Daviditting on: 0 07/01/2025 10:32 AM EDT History and Physical Notes * HPI (History of Present Illness) Category Sub-Category Detail Notes Category Not es HPI Here for follow up on: ER visit. Pt was transported to [facility] ER on 06/30 via ambulance after experiencing increased SOB for several days. Pt sts that he had been to a class reunion and believes that he got COVID there. He tested positive for COVID at home prior to going to the ER. In the ER, COVID-positive test was confirmed. His white count was normal. Chest x-ray showed nothing acute. He was discharged with a 5-day prescription for Augmentin and steroids. He has completed his course of medication and returns today for follow-up. Subjectively he is feeling better. His breathing feels normal and his blood pressure has returned to normal. Examination Category Sub-Category Detail Notes Category Not es General Examination Heart: RSR Lungs: coarse BS, no wheeze s Extremities: no leg edema General Appearance: NAD Oral cavity: no lesions, mucosa m oist and WNL, no erythema
--- OUTSIDE RECORDS SUMMARY | 2024-10-12 09:30 | XMS_ITS ---
[facility] [address] [place] [phone] Care Team Providers Care Supervisor Tumblers Name Role Phone Jennifer Deleon Primary Care Provider [phone] Allergies No Known Allergies REASON FOR VISIT 6 month check Medications Medication SIG (Take, Route, Frequency, Duration) Notes Start Date End Date Status Albuterol Sulfate HFA 108 (90 Base) MCG/ACT INHALE 2 PUFFS FOUR TIMES DAILY; Duration: 90 Active Aspirin 81 MG 1 tab(s) orally once a day Active Clotrimazole-Betamethason e 1-0.05 % 1 application Externally Twice a day 04/08/2023 Active Niacin 50 MG 1 cap(s) orally once a day (in the morning) Active Vitamin D3 125 MCG (5000 UT) 1 cap(s) orally once a day 11/08/2014 Active amLODIPine Besylate 5 MG 1/2 tab(s) oral ly once a day; Duration: 90 days Not-Taking Ipratropium-Albuterol 0.5-2.5 (3) MG/3ML 3 mL as needed Inhalation every 6 hrs Active Vitamin B-12 1000 MCG 1 tab(s) p.o. once a day 01/23/2015 Active Vitamin C 500 MG 1 tab(s) orally once a day; Duration: 30 day(s) Active Zinc 50 MG 1 tab(s) orally once a day; Duration: 30 day(s) Active Losartan Potassium 50 MG 1 tab(s) Orally once a day Active Meloxicam 15 MG 1 tab(s) Orally once daily Active Omeprazole 40 MG 1 cap(s) orally once a day Active Atorvastatin Calcium 40 MG take 1 tablet at bedtime Active Metoprolol Tartrate 25 MG take 1/2 table t twice daily orally 2 times a day Active Meloxicam 15 MG 1 tab(s) Orally once daily Active Losartan Potassium 50 MG 1 tab(s) Orally once a day Active Levothyroxine Sodium 112 MCG 1 tab(s) Orally once a day; Duration: 90 days Active Metoprolol Tartrate 25 MG take 1/2 table t twice daily orally 2 times a day Active Levothyroxine Sodium 112 MCG 1 tab(s) Orally once a day; Duration: 90 days Active Atorvastatin Calcium 40 MG take 1 tablet at bedtime Active Stiolto Respimat 2.5-2.5 MCG/ACT INHALE 2 PUFFS EVERY 24 HOURS Active Omeprazole 40 MG 1 cap(s) orally once a day Active Vital Signs Blood pressure systolic 128 mm Hg 10/12/20 24 Blood pressure diastolic 74 mm Hg 024 Heart Rate 73 /min 10/12/2024 Height 66 in 10/12/2024 Weight 175 lbs 10/12/2024 BMI 28.24 kg/m2 10/12/2024 Encounters Encounter Location Date Provider Diagnosis [facility] [address], [place] [id number] 10/12/2024 Jennifer Deleon Essential hypertensi on I10 ; Hypothyroidism (acquired) E03.9 ; Vitamin D deficiency E55.9 ; Dyslipidemia E78.5 ; ASCVD (arteriosclerotic cardiovascular disease) I25.10 ; Gastroesophageal reflux disease without esophagitis K21.9 ; Chronic obstructive pulmonary disease, unspecified COPD type J44.9 ; Osteoarthritis M19.90 ; Elevated PSA R97.20 and Rectal carcinoma C20 Assessments Encounter Date Diagnosis (ICD Code) Assessment Notes Treatment Notes Treatment Clinical Notes Section Notes 10/12/2024 Essential hypertension (ICD-10 - I10) 10/12/2024 Hypothyroidism (acquired) (ICD-10 - E03.9) 10/12/2024 Vitamin D deficiency (ICD-10 - E55.9) 10/12/2024 Dyslipidemia (ICD-10 - E78.5) 10/12/2024 ASCVD (arteriosclerotic cardiovascular disease) (ICD-10 - I25.10) 10/12/2024 Gastroesophageal reflux disease without esophagitis (ICD-10 - K21.9) 10/12/2024 Chronic obstructive pulmonary disease, unspecified COPD type (ICD-10 - J44.9) 10/12/2024 Osteoarthritis (ICD-10 - M19.90) 10/12/2024 Elevated PSA (ICD-10 - R97.20) 10/12/2024 Rectal carcinoma (ICD-10 - C20) Plan Of Treatment Medication Medication Name Sig Start Date Stop Date Notes Losartan Potassium 50 MG 1 tab(s) Orally once a day Meloxicam 15 MG 1 tab(s) Orally once daily Omeprazole 40 MG 1 cap(s) orally once a day Atorvastatin Calcium 40 MG take 1 tablet at bedtime Metoprolol Tartrate 25 MG take 1/2 table t twice daily orally 2 times a day Levothyroxine Sodium 112 MCG 1 tab(s) Or ally once a day; Duration: 90 days Next Appt Details Follow Up: RTO for labs: PSA , CMP, Lipid, TSH, Vitamin D, Reason: Progress Notes * HUGO LEIVA DDOB: [birth year] (74 yo M)Acc No.[id number]:10/12/2024 Progress Notes Patient: Soraya LANGLEY HUGO Swain Provider: Jennifer Deleon M.D. :1950 A ge:74 Y S ex:Male Date:10/12/2024 Address:[address] [place], [place] [address], [id number] Subjective: * Chief Complaints: * 1 . 6 month check. * HPI: C ardiology: He comes in today for scheduled checkup and refills. He is not fasting today. He brings in a diary of blood pressure readings which are consistently normal. He reports some mild swelling at the end of the day that goes down overnight. Denies : Chest Pain. D enies : Short of Breath. D enies : Palpitations. * ROS: D ERMATOLOGY: no R reina. n o H zenobia. G ASTROENTEROLOGY: no V omiting. n o D iarrhea. U ROLOGY: no D ifficulty urinating. n o B lood in urine. * Medical History: H iatal hernia, HTN, Tobacco addiction, HLP, ASCVD - S/P NM - Dr. 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 Tristan, BPH - Dr. Mariscal, COPD, GERD, ZEN - on BiPAP per Dr. Lewis. * Surgical History: h ernia repair , tonsillectomy , vasectomy , cardiac stents x 2 01-22-10, colonoscopy (Po) with rectal carcinoma 07/14/17, Low Anterior colon resection for rectal CA, Dr. Tristan 08/21/2017, stress test and echocardiagram 10/13, [address] Tristan, clear 09/28/18, Wedge resection left upper lobe lung nodule with path c/w metastatic adenoCA from primary rectal CA --Dr Ben Miller 02/23/19, C-scope/ Dr. Tristan/ victor hugo 04/09/21. * Hospitalization/Major Diagno stic Procedure: h eart attack, [place] 01-22-10, acute pancreatitis 04/2013, TIA 06/21-, [facility] - SOB 06-30-2024. * Family [...] 2 PUFFS FOUR TIMES DAILY , Taking Stiolto Respimat 2.5-2.5 MCG/ACT Aerosol Solution INHALE 2 PUFFS EVERY 24 HOURS , Taking Atorvastatin Calcium 40 MG Tablet take 1 tablet at bedtime , Taking Omeprazole 40 MG Capsule Delayed Release 1 cap(s) orally once a day , Taking Levothyroxine Sodium 112 MCG Tablet 1 tab(s) Orally once a day , Taking Metoprolol Tartrate 25 MG Tablet take 1/2 tablet twice daily orally 2 times a day , Taking Losartan Potassium 50 MG Tablet 1 tab(s) Orally once a day , Taking Meloxicam 15 MG Tablet 1 tab(s) Orally once daily , Not-Taking amLODIPine Besylate 5 MG Tablet 1/2 tab(s) orally once a day , Discontinued Amoxicillin-Pot Clavulanate 500-125 MG Tablet 1 tablet Orally every 12 hrs , Discontinued predniSONE 20 MG Tablet 1 tablet Orally Once a day , Medication List reviewed and reconciled with the patient * Allergies: N .K.D.A. Objective: * Vitals: W t:175, Temp:97.9, BP:128/74, HR:73, O2 Sat:94% on RA, Nurse:NISA, Ht: 66, BMI:28.24. * Examination: C ardiology: General Appearance: p [...] J44.9 8 . O steoarthritis - M19.90 9 . E levated PSA - R97.20 1 0. R ectal carcinoma - C20 Plan: * Treatment: 2. H ypothyroidism (acquired) Refill Levothyroxine Sodium Tablet, 112 MCG, 1 tab(s), Orally, once a day, 90 days, 90 Tablet, Refills 1. 3. D yslipidemia Refill Atorvastatin Calcium Tablet, 40 MG, take 1 tablet at bedtime, 90 Tablet, Refills 1. ? 4. G astroesophageal reflux disease without esophagitis Refill Omeprazole Capsule Delayed Release, 40 MG, 1 cap(s), orally, once a day, 90, Refills 1. 5. O steoarthritis Refill Meloxicam Tablet, 15 MG, 1 tab(s), Orally, once daily, 90, Refills 1. * Procedure Codes: 9 4760 PULSE OX, G2211 Complex e/m visit add on * Follow Up: R TO for labs: PSA, CMP, Lipid, TSH, Vitamin D * Images: Billing Information: * Visit Code: 64041 Office Visit, Est Pt., Level 4. * Procedure Codes: 75580 PULSE OX. G2211 Complex e/m visit add on. * Electronic signature of Jennifer Deleon MD on 07/01/2025 at 10:32 AM EDT Sign off status: Pending * Provider: Jennifer Deleon M.D. Date: 1 12/13/2023 Generated for Julia zelaya/Salbador/Heronsmitting on: 0 07/01/2025 10:32 AM EDT History and Physical Notes * HPI (History of Present Illness) Category Sub-Category Detail Notes Category Not es Cardiology Short of Breath Chest Pain Palpitations Examination Category Sub-Category Detail Notes Category Not es Cardiology Lungs: Generally dimini shed breath sounds but otherwise clear. Chest with increased AP diameter. Marked thoracic kyphosis HEENT: sclera and conjuncti va clear, PERRLA, TM's normal, translucent Heart sounds: RRR, normal S1, S2 Extremities: no leg edema Murmur, click , gallop: none General Appearance: pleasant, NAD
--- OUTSIDE RECORDS SUMMARY | 2024-10-14 05:00 | XMS_ITS ---
Author Organization [facility] Address [address] [facility] [address] [place] [phone] Care Team Providers Care Junior Copywriter Name Role Phone Jennifer Deleon Primary Care Provider Results Component Value Reference Range Notes P-Comprehensive Metabolic Pa pako (CMP) Reviewed date:10/18/2024 02:01:50 PM Interpretation:GFR 1.43 Performing Lab: Notes/Report: Test performed by [facility] [address] , [address], [place] [address] Sina Kinsey MD, Coater Associate CLIA: [id number] Sodium 139 135-145 mmol/L Potassium 4.2 3.5-5.3 mmol/L Chloride 104 97-108 mmol/L CO2 24 22-32 mmol/L Glucose 89 65-99 mg/dL BUN 19 8-23 mg/dL Creatinine 1.43 0.70-1.30 mg/dL Calcium 9.6 8.6-10.4 mg/dL eGFR by Creatinine 51 >59 mL/min/1.73m2 Protein 6.6 6.0-8.3 g/dL Albumin 4.3 3.5-5.3 g/dL Alkaline Phosphatase 77 40-129 IU/L ALT (SGPT) 17 <5-55 IU/L AST (SGOT) 19 <5-46 IU/L Bilirubin, Total 0.6 <0.2-1.2 mg/dL A/G Ratio 1.9 1.1-2.5 P-Lipid Panel Reviewed date:10/18/2024 02:01:50 PM Interpretation:LDL 73 Performing Lab: Notes/Report: Test performed by [facility] , [address], [place] [address] Sina Kinsey MD, Coater Associate SIMON: [id number] Cholesterol 129 <200 mg/dL Triglycerides 82 <150 mg/dL HDL Cholesterol 40 >39 mg/dL Cholesterol / HDL Ratio 3.23 0.00-4.99 Ratio Non-HDL Cholesterol 89 <130 mg/dL LDL Cholesterol (Calculation) 73 <130 mg/dL LDL Cholesterol Levels* Less than 100 mg/dL Optimal 100 to 129 mg/dL Near Optimal/ Above Optimal 130 to 159 mg/dL Borderline High 160 to 189 mg/dL High 190 mg/dL and above Very High * Categories as recommended by the 2004 ATPIII guidelines LDL/HDL Ratio 1.8 <3.3 Ratio LDL Cholesterol Patient History Test Date: 10/14/2023 LDL Results: 80 Units: mg/dL % Change: - Test Date: 04/13/2024 LDL Results: 73 Units: mg/dL % Change: -8% Test Date: 10/14/2024 LDL Results: 73 Units: mg/dL % Change: 0% P-PSA Reviewed date:10/18/2024 02:01:50 PM Interpretation:8.22 Performing Lab: Notes/Report: Test performed by [facility] [address] [place] [address] , [place] [address] Sina Kinsey MD, Coater Associate CLIA: [id number] PSA 8.22 <4.00 ng/mL Please note this is an ultrasensitive PSA assay with a lower limit of detection of 0.014 ng/mL. This test is performed by the [employer] ECLIA methodology. Values obtained with different assay methods or kits cannot be directly compared. P-TSH Reviewed date:10/18/2024 02:01:50 PM Interpretation:1.04 Performing Lab: Notes/Report: Test performed by [facility] [address] [place] [address] [place] [address] Sina Kinsey MD, Coater Associate CLIA: [id number] TSH 1.04 0.43-5.25 mU/L P-Vitamin D 1,25-Dihydroxy a nd 25-Hydroxy Reviewed date:10/18/2024 02:01:50 PM Interpretation:102 Performing Lab: Notes/Report: Test performed by [facility] [address] [place] [address] [place] [address] Sina Kinsey MD, Coater Associate CLIA: [id number] Vitamin D 25-Hydroxy 102.0 30.0-100.0 ng/mL Interpretation of Vitamin D 25 OH: < 20 ng/mL - Deficiency 20 - 29 ng/mL - Insufficiency 30 - 100 ng/mL - Sufficiency > 100 ng/mL - Super-therapeutic- toxicity may occur above this level. Clinical correlation required. Vitamin D, 1, 25 Dihydroxy 41.5 19.9-79.3 pg/m L REASON FOR VISIT blood work Medications Medication SIG (Take, Route, Frequency, Duration) Notes Start Date End Date Status Metoprolol Tartrate 25 MG take 1/2 table t twice daily orally 2 times a day Active Atorvastatin Calcium 40 MG take 1 tablet at bedtime Active Meloxicam 15 MG 1 tab(s) Orally once daily Active amLODIPine Besylate 5 MG 1/2 tab(s) oral ly once a day; Duration: 90 days Not-Taking Omeprazole 40 MG 1 cap(s) orally once a day Active Levothyroxine Sodium 112 MCG 1 tab(s) Orally once a day; Duration: 90 days Active Losartan Potassium 50 MG 1 tab(s) Orally once a day Active Metoprolol Tartrate 25 MG take 1/2 table t twice daily orally 2 times a day Active Losartan Potassium 50 MG 1 tab(s) Orally once a day Active Meloxicam 15 MG 1 tab(s) Orally once daily Active Albuterol Sulfate HFA 108 (90 Base) MCG/ACT INHALE 2 PUFFS FOUR TIMES DAILY; Duration: 90 Active Levothyroxine Sodium 112 MCG 1 tab(s) Orally once a day; Duration: 90 days Active Omeprazole 40 MG 1 cap(s) orally once a day Active Stiolto Respimat 2.5-2.5 MCG/ACT INHALE 2 PUFFS EVERY 24 HOURS Active Atorvastatin Calcium 40 MG take 1 tablet at bedtime Active Niacin 50 MG 1 cap(s) orally once a day (in the morning) Active Clotrimazole-Betamethason e 1-0.05 % 1 application Externally Twice a day 04/08/2023 Active Aspirin 81 MG 1 tab(s) orally once a day Active Vitamin B-12 1000 MCG 1 tab(s) p.o. once a day 01/23/2015 Active Vitamin D3 125 MCG (5000 UT) 1 cap(s) orally once a day 11/08/2014 Active Zinc 50 MG 1 tab(s) orally once a day; Duration: 30 day(s) Active Vitamin C 500 MG 1 tab(s) orally once a day; Duration: 30 day(s) Active Ipratropium-Albuterol 0.5-2.5 (3) MG/3ML 3 mL as needed Inhalation every 6 hrs Active Problems Problem Type SNOMED Code ICD Code Onset Dates Problem Status W/U Status Risk Notes Problem Hyperlipidemia (95329459) Hyperlipidemia (272.4) Active confirmed Encounters Encounter Location Date Provider Diagnosis [facility] [address] [place] [phone] 10/14/2024 Jennifer Deleon Hypothyroidism (acquired) E03.9 ; Vitamin D deficiency E55.9 ; Essential hypertension I10 ; Dyslipidemia E78.5 and Elevated PSA R97.20 Assessments Encounter Date Diagnosis (ICD Code) Assessment Notes Treatment Notes Treatment Clinical Notes Section Notes 10/14/2024 Hypothyroidism (acquired) (ICD-10 - E03.9) 10/14/2024 Vitamin D deficiency (ICD-10 - E55.9) 10/14/2024 Essential hypertension (ICD-10 - I10) 10/14/2024 Dyslipidemia (ICD-10 - E78.5) 10/14/2024 Elevated PSA (ICD-10 - R97.20) Plan Of Treatment No Information Progress Notes * HUGO LEIVA DDOB: [birth year] (74 yo M)Acc No.[id number]:10/14/2024 Patient: Soraya LANGLEYHUGO Provider: Jennifer Deleon M.D. :1950 A ge:74 Y S ex:Male Date:10/14/2024 Address:[address] [place] [address], [id number] Subjective: * Chief Complaints: * 1 . Blood work. * Medical History: * Medications: T aking Ipratropium-Albuterol 0.5-2.5 (3) [...] 1 tab(s) Orally once daily , Taking Levothyroxine Sodium 112 MCG Tablet [...] List reviewed and reconciled with the patient Objective: * Vitals: Assessment: * Assessment: 1. H ypothyroidism (acquired) - E03.9 2 . V itamin D deficiency - E55.9? 3. E ssential hypertension - I10 4 . D yslipidemia - E78.5? 5. E levated PSA - R97.20 Plan: * Treatment: Value Reference Range T SH 1.04 0.43-5.25 - mU/L * Jennifer Deleon 10/18/2024 2:01:35 PM >See phone encounter 2.?Vitamin D deficiency?LAB: P-Vitamin D 1,25-Dihydroxy and 25-Hydroxy (Collection Date & Time - 10/14/2024 09:01 AM)?102* Value Reference Range V itamin D 25-Hydroxy 102.0 H 30.0-100.0 - ng/mL * V itamin D, 1, 25 Dihydroxy 41.5 19.9-79.3 - pg /mL * Jennifer Deleon 10/18/2024 2:01:35 PM >See phone encounter 3.?Essential hypertension?LAB: P-Comprehensive Metabolic Panel (CMP) (Collection Date & Time - 10/14/2024 09:01 AM)?GFR 1.43* Value Reference Range A /G Ratio 1.9 1.1-2.5 - * A lbumin 4.3 3.5-5.3 - g/dL * A lkaline Phosphatase 77 40-129 - IU/L * A LT (SGPT) 17 <5-55 - IU/L * A ST (SGOT) 19 <5-46 - IU/L * B ilirubin, Total 0.6 <0.2-1.2 - mg/dL * B UN 19 8-23 - mg/dL * C alcium 9.6 8.6-10.4 - mg/dL * C hloride 104 97-108 - mmol/L * C O2 24 22-32 - mmol/L * C reatinine 1.43 H 0.70-1.30 - mg/dL * G lucose 89 65-99 - mg/dL * P otassium 4.2 3.5-5.3 - mmol/L * S odium 139 135-145 - mmol/L * P rotein 6.6 6.0-8.3 - g/dL * e GFR by Creatinine 51 L >59 - mL/min/1.73m2 * Jennifer Deleon 10/18/2024 2:01:35 PM >See phone encounter 4.?Dyslipidemia?LAB: P-Lipid Panel (Collection Date & Time - 10/14/2024 09:01 AM)?LDL 73* Value Reference Range C holesterol / HDL Ratio 3.23 0.00-4.99 - Ratio * C holesterol 129 <200 - mg/dL * H DL Cholesterol 40 >39 - mg/dL * L DL Cholesterol (Calculation) 73 <130 - mg/d L * L DL/HDL Ratio 1.8 <3.3 - Ratio * N on-HDL Cholesterol 89 <130 - mg/dL * T riglycerides 82 <150 - mg/dL * Jennifer Deleon 10/18/2024 2:01:35 PM >See phone encounter 5.?Elevated PSA?LAB: P-PSA (Collection Date & Time - 10/14/2024 09:01 AM)?8.22* Value Reference Range P SA 8.22 H <4.00 - ng/mL * Jennifer Deleon 10/18/2024 2:01:35 PM >See phone encounter * Images: Billing Information: * Visit Code: * Procedure Codes: * Electronic signature of Jennifer Deleon MD on 07/01/2025 at 10:33 AM EDT Sign off status: Pending * Provider: Jennifer Deleon M.D. Date: 1 12/15/2023 Generated for Julia zelaya/Salbador/eTransmitting on: 0 07/01/2025 10:33 AM EDT
--- OUTSIDE RECORDS SUMMARY | 2025-04-21 11:00 | XMS_ITS ---
Author Organization [facility] Address [address] [facility] [address] [place] [id number] Care Team Providers Care Travel Registered Nurse Oncology Name Role Phone Jennifer Deleon Primary Care Provider [phone] Allergies No Known Allergies Results Component Value Reference Range Notes P-Comprehensive Metabolic Pa pako (CMP) Reviewed date:04/25/2025 09:30:25 PM Interpretation:gluc 103, Cr 1.4, gfr 52 Performing Lab: Notes/Report: Test performed by [facility] , [address], [place] [address] Sina Kinsey MD, Weld Technician CLIA: [id number] Sodium 141 135-145 mmol/L Potassium 4.0 3.5-5.3 mmol/L Chloride 103 97-108 mmol/L CO2 28 20-32 mmol/L Glucose 103 65-99 mg/dL BUN 14 8-23 mg/dL Creatinine 1.40 0.70-1.30 mg/dL Calcium 9.8 8.6-10.4 mg/dL eGFR by Creatinine 52 >59 mL/min/1.73m2 Protein 7.0 6.0-8.3 g/dL Albumin 4.3 3.5-5.3 g/dL Alkaline Phosphatase 87 40-129 IU/L ALT (SGPT) 15 <5-55 IU/L AST (SGOT) 18 <5-46 IU/L Bilirubin, Total 0.4 <0.2-1.2 mg/dL A/G Ratio 1.6 1.1-2.5 P-Lipid Panel Reviewed date:04/25/2025 09:30:25 PM Interpretation:hdl 36 Performing Lab: Notes/Report: Test performed by [facility] [address] [place] [address] , [address], [place] [address] Sina Kinsey MD, Weld Technician CLIA: [id number] Cholesterol 131 <200 mg/dL Triglycerides 126 <150 mg/dL HDL Cholesterol 36 >39 mg/dL Cholesterol / HDL Ratio 3.64 0.00-4.99 Ratio Non-HDL Cholesterol 95 <130 mg/dL LDL Cholesterol (Calculation) 70 <130 mg/dL LDL Cholesterol Levels* Less than 100 mg/dL Optimal 100 to 129 mg/dL Near Optimal/ Above Optimal 130 to 159 mg/dL Borderline High 160 to 189 mg/dL High 190 mg/dL and above Very High * Categories as recommended by the 2004 ATPIII guidelines LDL/HDL Ratio 1.9 <3.3 Ratio LDL Cholesterol Patient History Test Date: 04/13/2024 LDL Results: 73 Units: mg/dL % Change: -8% Test Date: 10/14/2024 LDL Results: 73 Units: mg/dL % Change: 0% Test Date: 04/21/2025 LDL Results: 70 Units: mg/dL % Change: -4% P-PSA Reviewed date:04/25/2025 09:30:25 PM Interpretation:9.94 Performing Lab: Notes/Report: Test performed by [facility] [address] [place] [address] Dr[facility], [place] [address] Sina Kinsey MD, Weld Technician CLIA: [id number] PSA 9.94 <4.00 ng/mL Please note this is an ultrasensitive PSA assay with a lower limit of detection of 0.014 ng/mL. This test is performed by the [employer] ECLIA methodology. Values obtained with different assay methods or kits cannot be directly compared. P-TSH Reviewed date:04/25/2025 09:30:25 PM Interpretation:5.7 Performing Lab: Notes/Report: Test performed by [facility] [address] [place] [address] [place] [address] Sina Kinsey MD, Weld Technician CLIA: [id number] TSH 5.70 0.43-5.25 mU/L REASON FOR VISIT 6 months, Needs labs Medications Medication SIG (Take, Route, Frequency, Duration) Notes Start Date End Date Status Vitamin C 500 MG 1 tab(s) orally once a day; Duration: 30 day(s) Active Vitamin D3 125 MCG (5000 UT) 1 cap(s) orally once a day 11/08/2014 Active Vitamin B-12 1000 MCG 1 tab(s) p.o. once a day 01/23/2015 Active Clotrimazole-Betamethason e 1-0.05 % 1 application Externally Twice a day 04/08/2023 Active Niacin 50 MG 1 cap(s) orally once a day (in the morning) Active Ipratropium-Albuterol 0.5-2.5 (3) MG/3ML 3 mL as needed Inhalation every 6 hrs Active Zinc 50 MG 1 tab(s) orally once a day; Duration: 30 day(s) Active Omeprazole 40 MG 1 cap(s) orally once a day Active Meloxicam 15 MG 1 tab(s) Orally once daily Active Medrol 4 MG as directed Orally 04/21/2025 Active Levothyroxine Sodium 112 MCG 1 tab(s) Orally once a day Active Metoprolol Tartrate 25 MG take 1/2 table t twice daily orally 2 times a day Active Losartan Potassium 50 MG 1 tab(s) Orally once a day Active amLODIPine Besylate 5 MG 1/2 tab(s) oral ly once a day; Duration: 90 days Not-Taking Atorvastatin Calcium 40 MG take 1 tablet at bedtime Active Meloxicam 15 MG TAKE 1 TABLET EVERY DAY; Duration: 90 Active Omeprazole 40 MG TAKE 1 CAPSULE EVERY DAY; Duration: 90 Active Levothyroxine Sodium 112 MCG TAKE 1 TABLET EVERY DAY; Duration: 90 Active Metoprolol Tartrate 25 MG TAKE 1/2 TABLE T TWICE DAILY; Duration: 90 Active Atorvastatin Calcium 40 MG TAKE 1 TABLET AT BEDTIME; Duration: 90 Active Losartan Potassium 50 MG TAKE 1 TABLET E VERY DAY; Duration: 90 Active Stiolto Respimat 2.5-2.5 MCG/ACT INHALE 2 PUFFS EVERY 24 HOURS; Duration: 90 Active Aspirin 81 MG 1 tab(s) orally once a day Active Albuterol Sulfate HFA 108 (90 Base) MCG/ACT INHALE 2 PUFFS FOUR TIMES DAILY; Duration: 90 Active Problems Problem Type SNOMED Code ICD Code Onset Dates Problem Status W/U Status Risk Notes Problem Hypothyroidism (29913277) Hypothyroidism (acquired) (E03.9) Active confirmed Problem Vitamin D deficiency (69490813) Vitamin D deficiency (E55.9) Active confirmed Problem Chronic kidney disease stage 3A (disorder) (657963704) Chronic kidney disease, stage 3a (N18.31) Active confirmed Vital Signs Blood pressure systolic 148 mm Hg 04/21/20 25 Blood pressure diastolic 82 mm Hg 025 Heart Rate 76 /min 04/21/2025 Height 66 in 04/21/2025 Weight 172.8 lbs 04/21/2025 BMI 27.89 kg/m2 04/21/2025 Encounters Encounter Location Date Provider Diagnosis Margaret [address] [facility] [address] [place], [place] [id number] 04/21/2025 Jennifer Deleon Essential hypertensi on I10 ; Hypothyroidism (acquired) E03.9 ; Vitamin D deficiency E55.9 ; Dyslipidemia E78.5 ; ASCVD (arteriosclerotic cardiovascular disease) I25.10 ; Gastroesophageal reflux disease without esophagitis K21.9 ; Chronic obstructive pulmonary disease, unspecified COPD type J44.9 ; Elevated PSA R97.20 ; Rectal carcinoma C20 ; Tobacco abuse Z72.0 ; Chronic kidney disease, stage 3a N18.31 ; BMI 27.0-27.9,adult Z68.27 and Osteoarthritis M19.90 Assessments Encounter Date Diagnosis (ICD Code) Assessment Notes Treatment Notes Treatment Clinical Notes Section Notes 04/21/2025 Essential hypertension (ICD-10 - I10) 04/21/2025 Hypothyroidism (acquired) (ICD-10 - E03.9) 04/21/2025 Vitamin D deficiency (ICD-10 - E55.9) 04/21/2025 Dyslipidemia (ICD-10 - E78.5) 04/21/2025 ASCVD (arteriosclerotic cardiovascular disease) (ICD-10 - I25.10) 04/21/2025 Gastroesophageal reflux disease without esophagitis (ICD-10 - K21.9) 04/21/2025 Chronic obstructive pulmonary disease, unspecified COPD type (ICD-10 - J44.9) 04/21/2025 Elevated PSA (ICD-10 - R97.20) 04/21/2025 Rectal carcinoma (ICD-10 - C20) 04/21/2025 Tobacco abuse (ICD-10 - Z72.0) 04/21/2025 Chronic kidney disease, stage 3a (ICD-10 - N18.31) 04/21/2025 BMI 27.0-27.9,adult (ICD-10 - Z68.27) 04/21/2025 Osteoarthritis (ICD-10 - M19.90) Plan Of Treatment Medication Medication Name Sig Start Date Stop Date Notes Omeprazole 40 MG 1 cap(s) orally once a day Meloxicam 15 MG 1 tab(s) Orally once daily Medrol 4 MG as directed Orally 04/21/2025 Levothyroxine Sodium 112 MCG 1 tab(s) Orally once a day Metoprolol Tartrate 25 MG take 1/2 table t twice daily orally 2 times a day Losartan Potassium 50 MG 1 tab(s) Orally once a day Atorvastatin Calcium 40 MG take 1 tablet at bedtime Next Appt Details Follow Up: 6 Months, Reason: Progress Notes * HUGO LEIVA DDOB: [birth year] (74 yo M)Acc No.[id number]:04/21/2025 Progress Notes Patient: HUGO JOHNSON Provider: Jennifer Deleno M.D. :1950 A ge:74 Y S ex:Male Date:04/21/2025 Address:[address] [place] [address], [place], [id number] Subjective: * Chief Complaints: * 1 . 6 months. 2. Needs labs. * HPI: C ardiology: He brings in a diary of his blood pressure readings which are consistently normal. He continues to follow with cardiology. Blood Pressure Elevated P t presents today for a 6 month check up. Pt is not fasting today. E NT/respiratory: He is becoming more debilitated with his COPD and limited in his activity. He is dyspneic with slightest exertion. He continues to follow with Dr. Humphrey and is on Stiolto and albuterol inhaler. He has had some increased cough with thick sputum recently. No fever. No pleuritic chest pain or hemoptysis. Unfortunately, he continues to smoke. * ROS: D ERMATOLOGY: no R reina. n o H zenobia. G ASTROENTEROLOGY: no N ausea. n o V omiting. n o D iarrhea.? U ROLOGY: no D ifficulty urinating. n o B lood in urine. * Medical History: H iatal hernia, HTN, Tobacco addiction, HLP, ASCVD - S/P [place] - Dr. 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 Tristan, BPH - Dr. Marsical, COPD, GERD, ZEN - on BiPAP per Dr. Lewis. * Surgical History: h ernia repair , tonsillectomy , vasectomy , cardiac stents x 2 3-29-10, colonoscopy (Po) with rectal carcinoma 07/14/17, Low Anterior colon resection for rectal CA, Dr. Tristan 08/21/2017, stress test and echocardiagram 10/[address], [address] Tristan, clear 09/28/18, Wedge resection left upper lobe lung nodule with path c/w metastatic adenoCA from primary rectal CA --Dr Ben Miller 02/23/19, C-scope/ Dr. Tristan/ normal 04/09/21. * Hospitalization/Major Diagno stic Procedure: h eart attack, [place] 01-22-10, acute pancreatitis 04/2013, TIA 06/21-, [facility] ER - SOB 06-30-2024. * Family [...] tab(s) orally once a day , Taking Stiolto Respimat 2.5-2.5 MCG/ACT Aerosol Solution INHALE 2 PUFFS EVERY 24 HOURS , Taking Albuterol Sulfate HFA 108 (90 Base) MCG/ACT Aerosol Solution INHALE 2 PUFFS FOUR TIMES DAILY , Taking Losartan Potassium 50 MG Tablet TAKE 1 TABLET EVERY DAY , Taking Meloxicam 15 MG Tablet TAKE 1 TABLET EVERY DAY , Taking Levothyroxine Sodium 112 MCG Tablet TAKE 1 TABLET EVERY DAY , Taking Omeprazole 40 MG Capsule Delayed Release TAKE 1 CAPSULE EVERY DAY , Taking Atorvastatin Calcium 40 MG Tablet TAKE 1 TABLET AT BEDTIME , Taking Metoprolol Tartrate 25 MG Tablet TAKE 1/2 TABLET TWICE DAILY , Not-Taking amLODIPine Besylate 5 MG Tablet 1/2 tab(s) orally once a day , Medication List reviewed and reconciled with the patient * Allergies: N .K.D.A. Objective: * Vitals: W t: 172.8, Temp: 97.8, BP: 148/82, HR: 76, O2 Sat: 95% on RA, Nurse: NISA/SHAKIRA, Ht: 66, BMI:27.89. * Examination: C ardiology: General Appearance: M ildly dyspneic. H EENT: sclera and conjunctiva clear, PERRLA, TM's normal, translucent. H eart sounds: R RR, normal S1, S2. M urmur, click , gallop: n one. L ungs: G enerally diminished breath sounds with scattered rhonchi. No wheezes. C hest with increased AP diameter. Marked [...] unspecified COPD type - J44.9 8 . E levated PSA - R97.20 9 . R ectal carcinoma - C20 1 0. T obacco abuse - Z72.0 1 1. C hronic kidney disease, stage 3a - N18.31 1 2.?BMI 27.0-27.9,adult - Z68.27 1 3. O steoarthritis - M19.90 Plan: * Treatment: Value Reference Range A /G Ratio 1.6 1.1-2.5 - * A lbumin 4.3 3.5-5.3 - g/dL * A lkaline Phosphatase 87 40-129 - IU/L * A LT (SGPT) 15 <5-55 - IU/L * A ST (SGOT) 18 <5-46 - IU/L * B ilirubin, Total 0.4 <0.2-1.2 - mg/dL * B UN 14 8-23 - mg/dL * C alcium 9.8 8.6-10.4 - mg/dL * C hloride 103 97-108 - mmol/L * C O2 28 20-32 - mmol/L * C reatinine 1.40 H 0.70-1.30 - mg/dL * G lucose 103 H 65-99 - mg/dL * P otassium 4.0 3.5-5.3 - mmol/L * S odium 141 135-145 - mmol/L * P rotein 7.0 6.0-8.3 - g/dL * e GFR by Creatinine 52 L >59 - mL/min/1.73m2 * Jennifer Deleon 04/25/2025 09:30:13 PM EDT > See phone encounter 2.?Hypothyroidism (acquired)? Continue Levothyroxine Sodium Tablet, 112 MCG, 1 tab(s), Orally, once a day.?LAB: P-TSH (Collection Date & Time - 04/21/2025 02:44 PM)?5.7* Value Reference Range T SH 5.70 H 0.43-5.25 - mU/L * Jennifer Deleon 04/25/2025 09:30:13 PM EDT > See phone encounter 3.?Dyslipidemia? Continue Atorvastatin Calcium Tablet, 40 MG, take 1 tablet at bedtime.?LAB: P-Lipid Panel (Collection Date & Time - 04/21/2025 02:44 PM)?hdl 36* Value Reference Range C holesterol / HDL Ratio 3.64 0.00-4.99 - Ratio * C holesterol 131 <200 - mg/dL * H DL Cholesterol 36 L >39 - mg/dL * L DL Cholesterol (Calculation) 70 <130 - mg/d L * L DL/HDL Ratio 1.9 <3.3 - Ratio * N on-HDL Cholesterol 95 <130 - mg/dL * T riglycerides 126 <150 - mg/dL * Jennifer Deleon 04/25/2025 09:30:13 PM EDT > See phone encounter 4.?Gastroesophageal reflux disease without esophagitis? Continue Omeprazole Capsule Delayed Release, 40 MG, 1 cap(s), orally, once a day.??5.?Chronic obstructive pulmonary disease, unspecified COPD type? Start Medrol Tablet Therapy Pack, 4 MG, as directed, Orally, 1.??6.?Elevated PSA ?LAB: P-PSA (Collection Date & Time - 04/21/2025 02:44 PM)?9.94* Value Reference Range P SA 9.94 H <4.00 - ng/mL * Jennifer Deleon 04/25/2025 09:30:13 PM EDT > See phone encounter 7.?Osteoarthritis? Continue Meloxicam Tablet, 15 MG, 1 tab(s), Orally, once daily.?? * Procedure Codes: G 2211 Complex e/m visit add on, G8420 BMI<30 AND >=22 CALC & DOCU, G8950 PREHTN/HTN BP DOC INDCD F/U DOC, G8753 MOST RECENT SYSTOLIC BP >= 140MM HG, G8754 MOST RECENT DIASTOLIC BP < 90MM HG, G9711 PT W/DX PAST HX TOTAL COLECTOMY/CRC * Follow Up: 6 Months * Images: Billing Information: * Visit Code: 81916 Office Visit, Est Pt., Level 4. * Procedure Codes: G2211 Complex e/m visit add on. G8420 BMI<30 AND >=22 CALC & DOCU. G8950 PREHTN/HTN BP DOC INDCD F/U DOC. G8753 MOST RECENT SYSTOLIC BP >= 140MM HG. G8754 MOST RECENT DIASTOLIC BP < 90MM HG. G9711 PT W/DX PAST HX TOTAL COLECTOMY/CRC. * Electronic signature of Jennifer Deleon MD on 07/01/2025 at 10:32 AM EDT Sign off status: Pending * Provider: Jennifer Deleon M.D. Date: 0 04/21/2025 Generated for Pauli ng/Fasuzang/eTransmitting on: 0 07/01/2025 10:32 AM EDT History and Physical Notes * HPI (History of Present Illness) Category Sub-Category Detail Notes Category Not es Cardiology Blood Pressure Elevated Pt prese nts today for a 6 month check up. Pt is not fasting today Examination Category Sub-Category Detail Notes Category Not es Cardiology Lungs: Generally dimini shed breath sounds with scattered rhonchi. No wheezes. Chest with increased AP diameter. Marked thoracic kyphosis HEENT: sclera and conjuncti va clear, PERRLA, TM's normal, translucent Heart sounds: RRR, normal S1, S2 Extremities: no leg edema Murmur, click , gallop: none General Appearance: Mildly dyspneic
--- OUTSIDE RECORDS SUMMARY | 2025-07-01 10:33 | XMS_ITS | Clinical Summary ---
Author Organization [facility] Address [address] [place] [address] Care Team Providers Care Pattern Changer And Repairer Name Role Phone Sree Porras Primary Care [...] coronary intervention Coronary artery disease invo lving quechan coronary artery of quechan heart 06/14/2024 Benign prostatic hyperplasia with lower urinary tract symptoms 06/14/2024 Gastroesophageal reflux disease without esophagi tis 06/14/2024 Hypothyroidism 06/14/2024 HTN (hypertension) 06/14/2024 High cholesterol 06/14/2024 Arthritis 06/14/2024 Malignant neoplasm of rectum 09/10/2021 Encounters Date Type Department Care Team Description 04/27/2025 Orders Only [facility] [address] [place] [address] Mary Mobley RN 04/27/2025 Orders Only [facility] [address] [place] [address] Wallace Tristan MD Malignant neoplasm of rectum [...] Appointment [facility] [address] [place] [address] Wallace Tristan MD [address] [place] [phone] 08/08/2025 12:40 PM EDT Appointment [facility] [address] [place] [address] Health Maintenance Due Date Last Done Comments [facility]-Hepatitis C Screening 1950 [facility]-Medicare Annual Wellness (AWV) 1949 [facility]-/Child/Adol SDOH Screenings 1950 [id number] Vaccine (#1) 1954 [facility]- SDOH Screenings 1967 [facility]-Adult SDOH Screenings 1967 [facility]-DTaP,Tdap,and Td Vaccines (1 - Tdap) 1968 [facility]-Zoster Vaccines (1 of 2) 1968 CT Colonography 1994 FIT-DNA 1994 FIT 1994 FOBT 1994 Sigmoidoscopy 1994 [facility]-Pneumococcal Vaccine: 50+ Years (2 of 2 - PCV) 02/04/2018 02/04/2017 [facility]-Depression Screening 06/10/2024 06/10/2023, 05/27 [facility]-RSV Vaccine: 60+ Years or (1 - 1-dose 75+ series) 2024 Colonoscopy 06/14/2025 06/14/2024, 03/27, 10/04/2019, Additional history exists [facility]-Colorectal Cancer Screening 06/14/2025 [facility]-Influenza Vaccine (#1) 2025 [facility]-Obesity Intervention Completed 06/10/2023 [facility]-Lung Cancer Screening Discontinued 2023, 06/09/2023, 06/11/2022, Additional history exists HPV Vaccines Aged Out No longer eligi [...] Goal Care Plan Autogenerated Problem Ana Alaniz Procedures Procedure Name Priority Date/Time Associated Diagnosis [...] prior measuring about 8 mm (series 3, [id number]). No suspicious or enlarging lung nodules to [...] Aissatou Weeks MD on 07/20/2024 12:04 PM Wallace Tristan MD IMG CT PROCEDURES Final [...] - Assisting Arcenio Rodriguez RN Endo Nurse Ghassan Victoria MD Anesthesiologist Ulises, Olga Endo Asset Protection Lead Preprocedure A history and physical has been [...] of bowel preparation was evaluated using the [place] Bowel Preparation Scale with scores of: right [...] Date Diagnosed Date Autogenerated Problem 04/27/2025 Insurance [employer] MEDICARE Care Teams Pattern Changer And Repairer Relationship Specialty Start Date End Date Sree Porras PCP - General 06/11/22
--- OUTSIDE RECORDS SUMMARY | 2025-07-01 10:33 | XMS_ITS | Patient Health Record ---
[facility] [address] [place] [phone] Care Team Providers Care Gis Analyst Developer Name Role Phone Jennifer Deleon Primary Care Provider [phone] Allergies No Known Allergies Results Component Value Reference Range Notes P-Comprehensive Metabolic Pa pako (CMP) Reviewed date:04/25/2025 09:30:25 PM Interpretation:gluc 103, Cr 1.4, gfr 52 Performing Lab: Notes/Report: Test performed by [facility] [address] [place] [address] , [address], [place] [address] Sina Kinsey MD, [employer] CLIA: [id number] Sodium 141 135-145 mmol/L Potassium 4.0 3.5-5.3 [...] 36 Performing Lab: Notes/Report: Test performed by [facility] [address] [facility] , [address], [place] [address] Sina Kinsey MD, [employer] SIMON: [id number] Cholesterol 131 <200 mg/dL Triglycerides 126 <150 [...] Interpretation:9.94 Performing Lab: Notes/Report: Test performed by [facility] [address] [place], [place] [address] , [address], [place] [address] Sina Kinsey MD, [employer] CLIA: [id number] PSA 9.94 <4.00 ng/mL Please note this is an ultrasensitive PSA assay with a lower limit of detection of 0.014 ng/mL. This test is performed by the [employer] ECLIA methodology. Values obtained with different assay methods or kits cannot be directly compared. P-TSH Reviewed date:04/25/2025 09:30:25 PM Interpretation:5.7 Performing Lab: Notes/Report: Test performed by [facility] [address] [place] [address] , [address], [place] [address] Sina Kinsey MD, [employer] CLIA: [id number] TSH 5.70 0.43-5.25 mU/L P-Comprehensive Metabolic Pa pako (CMP) Reviewed date:10/18/2024 02:01:50 PM Interpretation:GFR 1.43 Performing Lab: Notes/Report: Test performed by [facility] [address] [place], [place] [address] , [address], [place] [address] Sina Kinsey MD, [employer] CLIA: [id number] Sodium 139 135-145 mmol/L Potassium 4.2 3.5-5.3 [...] 73 Performing Lab: Notes/Report: Test performed by [facility], [address] , [facility], [place] [address] Sina Kinsey MD, [employer] CLIA: [id number] Cholesterol 129 <200 mg/dL Triglycerides 82 <150 [...] Interpretation:8.22 Performing Lab: Notes/Report: Test performed by [facility] [address] [place], [place] [address] [place] [address] Sina Kinsey MD, [employer] CLIA: [id number] PSA 8.22 <4.00 ng/mL Please note this is an ultrasensitive PSA assay with a lower limit of detection of 0.014 ng/mL. This test is performed by the [employer] ECLIA methodology. Values obtained with different assay methods or kits cannot be directly compared. P-TSH Reviewed date:10/18/2024 02:01:50 PM Interpretation:1.04 Performing Lab: Notes/Report: Test performed by [facility] [address] [place], [place] [address] [address] Sina Kinsey MD, [employer] CLIA: [id number] TSH 1.04 0.43-5.25 mU/L P-Vitamin D 1,25-Dihydroxy a nd 25-Hydroxy Reviewed date:10/18/2024 02:01:50 PM Interpretation:102 Performing Lab: Notes/Report: Test performed by [facility] [address] [facility] , [address], [place] [address] Sina Kinsey MD, [employer] CLIA: [id number] Vitamin D 25-Hydroxy 102.0 30.0-100.0 ng/mL Interpretation of Vitamin D 25 OH: < 20 ng/mL - Deficiency 20 - 29 ng/mL - Insufficiency 30 - 100 ng/mL - Sufficiency > 100 ng/mL - Super-therapeutic- toxicity may occur above this level. Clinical correlation required. Vitamin D, 1, 25 Dihydroxy 41.5 19.9-79.3 pg/m L Reason For Referral No Information Medications Medication SIG (Take, Route, Frequency, Duration) Notes Start Date End Date Status Ipratropium-Albuterol 0.5-2.5 (3) MG/3ML 3 mL as needed Inhalation every 6 hrs Active Vitamin C 500 MG 1 tab(s) orally once a day; Duration: 30 day(s) Active Meloxicam 15 MG 1 tablet Orally Once a day; Duration: 90 days Active Zinc 50 MG 1 tab(s) orally once a day; Duration: 30 day(s) Active Levothyroxine Sodium 112 MCG TAKE 1 TABLET EVERY DAY; Duration: 90 Active Vitamin D3 125 MCG (5000 UT) 1 cap(s) orally once a day 11/08/2014 Active Vitamin B-12 1000 MCG 1 tab(s) p.o. once a day 01/23/2015 Active Clotrimazole-Betamethason e 1-0.05 % 1 application Externally Twice a day 04/08/2023 Active Niacin 50 MG 1 cap(s) orally once a day (in the morning) Active amLODIPine Besylate 5 MG 1/2 tab(s) oral ly once a day; Duration: 90 days Not-Taking Levothyroxine Sodium 125 MCG 1 tab(s) Orally once a day Active Albuterol Sulfate HFA 108 (90 Base) MCG/ACT INHALE 2 PUFFS FOUR TIMES DAILY; Duration: 90 Active Stiolto Respimat 2.5-2.5 MCG/ACT INHALE 2 PUFFS EVERY 24 HOURS; Duration: 90 Active Omeprazole 40 MG 1 capsule orally onc e a day; Duration: 90 days Active Aspirin 81 MG 1 tab(s) orally once a day Active Medrol 4 MG as directed Orally 04/21/2025 Active Metoprolol Tartrate 25 MG 0.5 tablet Ora lly Twice a day; Duration: 90 days Active Losartan Potassium 50 MG 1 tablet Orally Once a day; Duration: 90 days Active Atorvastatin Calcium 40 MG 1 tablet Orally Once a day; Duration: 90 days Active Immunizations Vaccine Route Administration Date Status Comme nts Prevnar (PCV13) IM Intramuscular 01/23/2015 Administered PNEUMOVAX 23 VACCINE IM Intramuscular 02/04/2017 Administe red Problems Problem Type SNOMED Code ICD Code Onset Dates Problem Status W/U Status Risk Notes Problem Hyperlipidemia (47388538) Hyperlipidemia (272.4) Active confirmed Problem Coronary arteriosclerosis (32764961) ASCVD (arteriosclerotic cardiovascular disease) (I25.10) Active confirmed Problem Tobacco abuse (0766798385) Tobacco abuse (Z72.0) Active confirmed Problem Hypothyroidism (57743545) Hypothyroidism (acquired) (E03.9) Active confirmed Problem Vitamin D deficiency (07135447) Vitamin D deficiency (E55.9) Active confirmed Problem Essential hypertension (97400193) Essential hypertension (I10) Active confirmed Problem Otitis externa (9672846) Otitis externa (H60.90) Active confirmed Problem Osteoarthritis (452600160) Osteoarthritis (M19.90) Active confirmed Problem Acute exacerbation of chronic obstructive airways disease (915958238) COPD with acute exacerbation (J44.1) Active confirmed Problem Irritable bowel syndrome (26380471) Irritable bowel syndrome without diarrhea (K58.9) Active confirmed Problem Nicotine dependence (56534599) Personal history of nicotine dependence (Z87.891) Active confirmed Problem Gastroesophageal reflux disease without esophagitis (496252576) Gastroesophageal reflux disease without esophagitis (K21.9) Active confirmed Problem COPD - Chronic obstructive pulmonary disease (15454451) Chronic obstructive pulmonary disease, unspecified COPD type (J44.9) Active confirmed Problem Obstructive sleep apnea syndrome (34725953) ZEN (obstructive sleep apnea) (G47.33) Active confirmed Problem Body mass index 30.00 to 34.99 (194708666998372) BMI 31.0-31.9,adult (Z68.31) Active confirmed Problem Dyslipidemia (776466546) Dyslipidemia (E78.5) Active confirmed Problem Calculus of gallbladder with acute and chronic cholecystitis (disorder) (521560718) Calculus of gallbladder with acute on chronic cholecystitis without obstruction (K80.12) Active confirmed Problem Thoracic kyphosi s (M40.204) Active confirmed Problem Lower urinary tract symptoms due to benign prostatic hypertrophy (01223743362944) Benign prostatic hyperplasia with lower urinary tract symptoms (N40.1) Active confirmed Problem Malignant tumor of rectum (183153220) Rectal carcinoma (C20) Active confirmed Problem Thyromegaly (1897918) Thyromegaly (E01.0) Active confirmed Problem Secondary malignant neoplasm of lung (31633768) Malignant neoplasm metastatic to left lung (C78.02) Active confirmed Problem Chronic kidney disease stage 3A (disorder) (852482103) Chronic kidney disease, stage 3a (N18.31) Active confirmed Vital Signs Heart Rate 76 /min 04/21/2025 Blood pressure diastolic 82 mm Hg 04/21/2025 Height 66 in 04/21/2025 Blood pressure systolic 148 mm Hg 04/21/2025 Weight 172.8 lbs 04/21/2025 BMI 27.89 kg/m2 04/21/2025 Encounters Encounter Location Date Provider Diagnosis [facility] [address] [facility] [address] [id number] 07/08/2024 R Genaro Deleon COVID-19 virus infec tion U07.1 ; Chronic obstructive pulmonary disease, unspecified COPD type J44.9 and Tobacco abuse Z72.0 [facility] [address] [facility] [address] [id number] 10/12/2024 R Genaro Deleon Essential hypertensi on I10 ; Hypothyroidism (acquired) E03.9 ; Vitamin D deficiency E55.9 ; Dyslipidemia E78.5 ; ASCVD (arteriosclerotic cardiovascular disease) I25.10 ; Gastroesophageal reflux disease without esophagitis K21.9 ; Chronic obstructive pulmonary disease, unspecified COPD type J44.9 ; Osteoarthritis M19.90 ; Elevated PSA R97.20 and Rectal carcinoma C20 [facility] [address] [facility] [address] [place] [id number] 10/14/2024 R Genaro Deleon Hypothyroidism (acqu ired) E03.9 ; Vitamin D deficiency E55.9 ; Essential hypertension I10 ; Dyslipidemia E78.5 and Elevated PSA R97.20 [facility] [address] [facility] [address] [place] [id number] 04/21/2025 R Genaro Riccieet Essential hypertensi on I10 ; Hypothyroidism (acquired) [...] ; BMI 27.0-27.9,adult Z68.27 and Osteoarthritis M19.90 [facility] [address] [place], [place] [id number] 07/22/2024 R Genaro Adrienne [facility] [address] [place], [place] [id number] 10/18/2024 R [facility] [address] [place], [place] [id number] 04/25/2025 R Genaro Adrienne Hypothyroidism (acqu ired) E03.9 [facility] [address] [place], [place] [id number] 05/30/2025 R Genaro Galant Assessments Encounter Date Diagnosis (ICD Code) Assessment Notes Treatment Notes Treatment Clinical Notes Section Notes 07/08/2024 Chronic obstructive pulmonary disease, unspecified COPD type (ICD-10 - J44.9) 07/08/2024 COVID-19 virus infection (ICD-10 - U07.1) 10/12/2024 Hypothyroidism (acquired) (ICD-10 - E03.9) 10/12/2024 Essential hypertension (ICD-10 - I10) 10/14/2024 Hypothyroidism (acquired) (ICD-10 - E03.9) 04/21/2025 Hypothyroidism (acquired) (ICD-10 - E03.9) 04/21/2025 Essential hypertension (ICD-10 - I10) 04/25/2025 Hypothyroidism (acquired) (ICD-10 - E03.9) 07/08/2024 Tobacco abuse (ICD-10 - Z72.0) Recommend smoking cessation 04/21/2025 Vitamin D deficiency (ICD-10 - E55.9) 10/14/2024 Vitamin D deficiency (ICD-10 - E55.9) 10/12/2024 Vitamin D deficiency (ICD-10 - E55.9) 10/14/2024 Essential hypertension (ICD-10 - I10) 10/12/2024 Dyslipidemia (ICD-10 - E78.5) 04/21/2025 Dyslipidemia (ICD-10 - E78.5) 04/21/2025 ASCVD (arteriosclerotic cardiovascular disease) (ICD-10 - I25.10) 10/14/2024 Dyslipidemia (ICD-10 - E78.5) 10/12/2024 ASCVD (arteriosclerotic cardiovascular disease) (ICD-10 - I25.10) 10/14/2024 Elevated PSA (ICD-10 - R97.20) 10/12/2024 Gastroesophageal reflux disease without esophagitis (ICD-10 - K21.9) 04/21/2025 Gastroesophageal reflux disease without esophagitis (ICD-10 - K21.9) 04/21/2025 Chronic obstructive pulmonary disease, unspecified COPD type (ICD-10 - J44.9) 10/12/2024 Chronic obstructive pulmonary disease, unspecified COPD type (ICD-10 - J44.9) 10/12/2024 Osteoarthritis (ICD-10 - M19.90) 04/21/2025 Elevated PSA (ICD-10 - R97.20) 04/21/2025 Rectal carcinoma (ICD-10 - C20) 10/12/2024 Elevated PSA (ICD-10 - R97.20) 10/12/2024 Rectal carcinoma (ICD-10 - C20) 04/21/2025 Tobacco abuse (ICD-10 - Z72.0) 04/21/2025 Chronic kidney disease, stage 3a (ICD-10 - N18.31) 04/21/2025 BMI 27.0-27.9,adult (ICD-10 - Z68.27) 04/21/2025 Osteoarthritis (ICD-10 - M19.90) Plan Of Treatment No Information Insurance Providers Payer Name Payer Address Payer Phone Subscriber Number Group Number Insured Name Patient Relationship to Insured Coverage Start Date Coverage End Date [employer] (MEDICAR E) [address] [address] [place] [address] [id number] HUGO LEIVA Self - patient is the insured [employer] (MEDICAR E) [address] [address] [place] [address] [id number] HUGO LEIVA Self - patient is the insured Medications Administered Medication Instructions Date of Administration Dosage Notes Depo- Medrol 40 mg/ml 09/30/2011 1.5 mL Dexamethasone 10/15/2008 1 mL Dexamethasone 12/07/2010 1 mL Dexamethasone 02/05/2012 Dexamethasone 01/04/2019 1 mL Medical (General) History Medical History History ICD Code Hiatal hernia HTN Tobacco addiction HLP ASCVD - [place] - Dr. 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 Tristan BPH - Dr. Mariscal COPD GERD ZEN - on BiPAP per Dr. Lewis Surgical History Surgery Date(Month/Year) hernia repair tonsillectomy vasectomy cardiac stents x 2 01-22-10 colonoscopy (Po) with rectal carcin han 07/14/17 Low Anterior colon resection for rectal CA, Dr. Tristan 08/21/2017 stress test and echocardiagram 10/[address] Tristan, sourav Wedge resection left upper l obe lung nodule with path c/w metastatic adenoCA from primary rectal CA --Dr Ben Miller 02/23/19 C-scope/ Dr. Tristan/ normal 04/09/21 Hospitalization History Reason Date(Month/Year) [facility] ER - SOB 06-30-2024 TIA 06/21- acute pancreatitis 04/2013 heart attack, [place] 01-22-10
== END ==
LOC: SL 10:30
PROVIDERS: PCP Family Medicine; Visit Provider Internal Medicine Pulmonary Disease
DX: J44.9 Chronic obstructive pulmonary disease, unspecified (principal)
CPT/HCPCS: 94762

== ENCOUNTER 2025-08-04 14:43 | Outpatient (CLI) | payer MEDICARE, SELFPAY | END 2025-08-04 23:59 | disposition home or self-care (01) | LOC: RT 14:44 | PROVIDERS: PCP Family Medicine; Visit Provider Internal Medicine Pulmonary Disease | DX: R94.2 Abnormal results of pulmonary function studies (principal); R06.02 Shortness of breath; R42 Dizziness and giddiness | CPT/HCPCS: 94618 ==